=== PATIENT | female | born 1945 | race Caucasian/White ===

== ENCOUNTER 2017-07-30 18:32 | Emergency (ER) | payer MEDICARE, OTHER ==
[~2017-07-30] VITALS: Ht 180.3 cm; Wt 84.0 kg
[2017-07-30 19:24] LABS: BARBITURATES NEG (NEG); BENZODIAZEPINES NEG (NEG); CANNABINOIDS NEG (NEG); COCAINE NEG (NEG); METHADONE NEG (NEG); OPIATES NEG (NEG); PHENCYCLIDINE NEG (NEG)
[2017-07-30 19:25] LABS: AMPHETAMINE/METHAMPHETAMINE NEG (NEG)
[2017-07-30 19:50] LABS: BASO # 0.1 x10^3/uL (0.0-0.2); BASO % 1 % (0-3); EOS # 0.3 x10^3/uL (0.0-0.7); EOS % 3 % (0-3); HEMATOCRIT 34.4 % (36.0-47.0); HEMOGLOBIN 11.9 g/dL (12.0-15.5); LYMPH # 1.6 x10^3/uL (1.0-4.8); LYMPH % 17 % (24-48); MEAN CORPUSCULAR HEMOGLOBIN 34 pg (25-35); MEAN CORPUSCULAR HGB CONC 35 g/dL (31-37); MEAN CORPUSCULAR VOLUME 99 fL (79-100); MONO # 0.8 x10^3/uL (0.0-1.1); MONO % 9 % (0-9); NEUT # 6.6 x10^3uL (1.8-7.7); NEUT % 71 % (31-73); PLATELET COUNT 215 x10^3/uL (140-400); RED BLOOD COUNT 3.48 x10^6/uL (3.50-5.40); RED CELL DISTRIBUTION WIDTH 12.5 % (11.5-14.5); WHITE BLOOD COUNT 9.3 x10^3/uL (4.0-11.0)
[2017-07-30 19:58] LABS: ALBUMIN 3.1 g/dL (3.4-5.0); ALBUMIN/GLOBULIN RATIO 0.9 (1.0-1.7); CALCIUM 8.6 mg/dL (8.5-10.1); CREATININE 0.9 mg/dL (0.6-1.0); GFR 61.4; MAGNESIUM 1.9 mg/dL (1.8-2.4); POTASSIUM 3.8 mmol/L (3.5-5.1); TOTAL BILIRUBIN 0.7 mg/dL (0.2-1.0); TOTAL PROTEIN 6.4 g/dL (6.4-8.2)
[2017-07-30 20:05] LABS: BILIRUBIN,URINE NEG (NEG); CLARITY,URINE TURBID; COLOR,URINE YELLOW; GLUCOSE,URINE NEG (NEG); NITRITE,URINE NEG (NEG); UROBILINOGEN,URINE 0.2 mg/dL (0.2 mg/dL)
--- NOTE | 2017-07-30 20:05 | PHYS DOC ---
Past History Past Medical History: Bipolar, Diabetes, High Cholesterol, Hypertension Smoking: Cigarettes Adult General Chief Complaint Chief Complaint: PSYCH EVALUATION HPI HPI 71-year-old female patient with history of hypertension, dyslipidemia, diabetes and bipolar disorder brought in by her sisters for medical clearance for psychiatric admission. Patient lives at [place] and flew to this area yesterday. Patient states she didn't take her medication for the last one month because of problems mailing her medication. Patient complaining of chronic back pain without any new changes but her sister states she was very hyperactive and talking nonstop and last night she mentioned that she doesn't want to live like this she denies suicidal or homicidal ideation or hallucination at this time. Patient has history of drinking alcohol did not have any on-call today. Review of Systems Review of Systems Constitutional: Denies fever or chills [] Eyes: Denies change in visual acuity, redness, or eye pain [] HENT: Denies nasal congestion or sore throat [] Respiratory: Denies cough or shortness of breath [] Cardiovascular: No additional information not addressed in HPI [] GI: Denies abdominal pain, nausea, vomiting, bloody stools or diarrhea [] : Denies dysuria or hematuria [] Musculoskeletal: Denies joint pain, reports chronic back pain [] Integument: Denies rash or skin lesions [] Neurologic: Denies headache, focal weakness or sensory changes [] Endocrine: Denies polyuria or polydipsia [] All other systems were reviewed and found to be within normal limits, except as documented in this note. Allergies Allergies Allergies Coded Allergies Type Severity Reaction Last Updated Verified Penicillins Allergy Unknown 07/30/17 Yes procaine Allergy Unknown 07/30/17 Yes quetiapine Allergy Unknown 07/30/17 Yes Physical Exam Physical Exam Constitutional: Well nourished, no acute distress, non-toxic appearance, anxious , talking a lot. [] HENT: Normocephalic, atraumatic, bilateral external ears normal, oropharynx moist, no oral exudates, nose normal. [] Eyes: PERRLA, EOMI, conjunctiva normal, no discharge. [] Neck: Normal range of motion, no tenderness, supple, no stridor. [] Cardiovascular:Heart rate regular rhythm, no murmur [] Lungs & Thorax: Bilateral breath sounds clear to auscultation [] Abdomen: Bowel sounds normal, soft, no tenderness, no masses, no pulsatile masses. [] Skin: Warm, dry, no erythema, no rash. [] Back: No tenderness, no CVA tenderness. [] Extremities: No tenderness, no cyanosis, no clubbing, ROM intact, no edema. [] Neurologic: Alert and oriented X 3, normal motor function, normal sensory function, no focal deficits noted. [] Psychologic: Anxious, judgement normal, Current Patient Data Lab Results Laboratory Tests Test 07/30/17 18:55 07/30/17 19:15 Urine Opiates Screen Neg (NEG) Urine Methadone Screen Neg (NEG) Urine Barbiturates Neg (NEG) Urine Phencyclidine Screen Neg (NEG) Urine Amphetamine/Methamphetamine Neg (NEG) Urine Benzodiazepines Screen Neg (NEG) Urine Cocaine Screen Neg (NEG) Urine Cannabinoids Screen Neg (NEG) Urine Ethyl Alcohol Neg (NEG) White Blood Count 9.3 x10^3/uL (4.0-11.0) Red Blood Count 3.48 x10^6/uL (3.50-5.40) L Hemoglobin 11.9 g/dL (12.0-15.5) L Hematocrit 34.4 % (36.0-47.0) L Mean Corpuscular Volume 99 fL (79-100) Mean Corpuscular Hemoglobin 34 pg (25-35) Mean Corpuscular Hemoglobin Concent 35 g/dL (31-37) Red Cell Distribution Width 12.5 % (11.5-14.5) Platelet Count 215 x10^3/uL (140-400) Neutrophils (%) (Auto) 71 % (31-73) Lymphocytes (%) (Auto) 17 % (24-48) L Monocytes (%) (Auto) 9 % (0-9) Eosinophils (%) (Auto) 3 % (0-3) Basophils (%) (Auto) 1 % (0-3) Neutrophils # (Auto) 6.6 x10^3uL (1.8-7.7) Lymphocytes # (Auto) 1.6 x10^3/uL (1.0-4.8) Monocytes # (Auto) 0.8 x10^3/uL (0.0-1.1) Eosinophils # (Auto) 0.3 x10^3/uL (0.0-0.7) Basophils # (Auto) 0.1 x10^3/uL (0.0-0.2) Sodium Level 139 mmol/L (136-145) Potassium Level 3.8 mmol/L (3.5-5.1) Chloride Level 102 mmol/L (98-107) Carbon Dioxide Level 28 mmol/L (21-32) Anion Gap 9 (6-14) Blood Urea Nitrogen 9 mg/dL (7-20) Creatinine 0.9 mg/dL (0.6-1.0) Estimated GFR (Cockcroft-Gault) 61.4 BUN/Creatinine Ratio 10 (6-20) Glucose Level 186 mg/dL (70-99) H Glucose (Fingerstick) 179 mg/dL (70-99) H Calcium Level 8.6 mg/dL (8.5-10.1) Magnesium Level 1.9 mg/dL (1.8-2.4) Total Bilirubin 0.7 mg/dL (0.2-1.0) Aspartate Amino Transferase (AST) 56 U/L (15-37) H Alanine Aminotransferase (ALT) 51 U/L (14-59) Alkaline Phosphatase 111 U/L (46-116) Total Protein 6.4 g/dL (6.4-8.2) Albumin 3.1 g/dL (3.4-5.0) L Albumin/Globulin Ratio 0.9 (1.0-1.7) L EKG EKG EKG interpreted by me. EKG at 1922 showed normal sinus rhythm at rate of [address] and T wave abnormality, left truong axis deviation[] Radiology/Procedures Radiology/Procedures [] Course & Med Decision Making Course & Med Decision Making Pertinent Labs reviewed. (See chart for details) Evaluation of patient in ER showed 70-year-old female patient with history of bipolar without taking her medication brought in by family members because of manic symptom. Patient denied suicidal and homicidal ideation. Patient was evaluated by Dr. Costello psychiatric via telemedicine at and determined that she needs inpatient treatment. Blood tests showed blood sugar of 179 and mild UTI. Had 1 dose of active in ER. Patient was treated with Abilify 7.5 mg and Ativan 1 mg by mouth that was recommended by Dr. Costello. Plan to admit patient to [facility] with diagnosis of acute dottie. Dragon Disclaimer Dragon Disclaimer This electronic medical record was generated, in whole or in part, using a voice recognition dictation system. Departure Departure: Impression: Primary Impression: Medical clearance for psychiatric admission Additional Impressions: Urinary tract infection Uncontrolled diabetes mellitus Anemia Manic behavior Disposition: ADMITTED INPATIENT (to [facility] behavioral health unit at 2116 ) Condition: IMPROVED Referrals: PCP,NO (PCP) Problem Qualifiers BRANDON BOOKER MD Jul 30, 2017 20:05
[2017-07-30 20:06] LABS: BACTERIA,URINE FEW /HPF (0-FEW); SQUAMOUS EPITHELIAL CELL,UR MANY /LPF
[2017-07-30 20:08] LABS: YEAST,URINE PRESENT /HPF
[2017-07-30] MEDS ORDERED: SMZ/TMP 800/160MG TABLET. PO ONE (20:30)
[2017-07-30] MEDS ORDERED: LORazepam 1 MG TABLET PO ONE (21:30)
[2017-07-30] MEDS ORDERED: ARIPiprazole 15 MG TABLET PO ONE (21:30)
[2017-07-30 22:30] VITALS: BP 129/62
--- NOTE | 2017-07-31 06:13 | EKG ---
[address] [address] Test Date: 2017-07-30 Test Time: 19:22:56 Pat Name: SANJAY KIMBALL Department: Room: Gender: F Occ Therapist: : 1945 Requested By: BRANDON BOOKER Order Number: [id number] Reading MD: Chago Garcia Measurements Intervals [place] Rate: 80 P: 24 UT: 124 QRS: -10 QRSD: 90 T: 31 QT: 350 QTc: 407 Interpretive Statements SINUS RHYTHM LEFTWARD AXIS OTHERWISE NORMAL ECG RI6.01 No previous ECG available for comparison Electronically Signed On 08-04-2017 14:40:58 HARDWARE DESIGNER by Chago Garcia
== END 2017-07-30 22:35 | disposition left against medical advice (07) ==
LOC: ER 18:32
DX: Z01.818 Encounter for other preprocedural examination (principal); N39.0 Urinary tract infection, site not specified; E11.9 Type 2 diabetes mellitus without complications; D64.9 Anemia, unspecified; F31.9 Bipolar disorder, unspecified; G89.29 Other chronic pain; E78.00 Pure hypercholesterolemia, unspecified; I10 Essential (primary) hypertension; F17.210 Nicotine dependence, cigarettes, uncomplicated; Z88.0 Allergy status to penicillin; Z88.4 Allergy status to anesthetic agent; Z88.8 Allergy status to other drugs, medicaments and biological substances
CPT/HCPCS: 36415; 80053; 80307; 81001; 82947; 83735; 85025; 87086; 93005; 99285; G0479

== ENCOUNTER 2019-01-26 11:30 | Observation (INO) | payer MEDICAID, MEDICARE ==
[~2019-01-26] VITALS: Ht 165.1 cm; Wt 91.8 kg
[2019-01-26 12:07] LABS: BILIRUBIN,URINE NEG (NEG); CLARITY,URINE HAZY; COLOR,URINE YELLOW; GLUCOSE,URINE 100 mg/dL (NEG); NITRITE,URINE NEG (NEG); UROBILINOGEN,URINE 0.2 mg/dL (0.2 mg/dL)
[2019-01-26 12:15] LABS: BACTERIA,URINE FEW /HPF (0-FEW); HYALINE CASTS, URINE OCC /HPF; SQUAMOUS EPITHELIAL CELL,UR MOD /LPF; WBC,URINE 20-40 /HPF (0-4)
[2019-01-26 12:21] LABS: BASO % 0 % (0-3); EOS # 0.2 x10^3/uL (0.0-0.7); EOS % 2 % (0-3); HEMATOCRIT 34.8 % (36.0-47.0); HEMOGLOBIN 11.9 g/dL (12.0-15.5); LYMPH # 1.9 x10^3/uL (1.0-4.8); LYMPH % 19 % (24-48); MEAN CORPUSCULAR HEMOGLOBIN 35 pg (25-35); MEAN CORPUSCULAR HGB CONC 34 g/dL (31-37); MEAN CORPUSCULAR VOLUME 101 fL (79-100); MONO # 0.8 x10^3/uL (0.0-1.1); MONO % 8 % (0-9); NEUT % 70 % (31-73); PLATELET COUNT 210 x10^3/uL (140-400); RED BLOOD COUNT 3.45 x10^6/uL (3.50-5.40); RED CELL DISTRIBUTION WIDTH 12.6 % (11.5-14.5)
[2019-01-26 12:32] LABS: ALBUMIN 3.4 g/dL (3.4-5.0); CALCIUM 8.8 mg/dL (8.5-10.1); CREATININE 0.9 mg/dL (0.6-1.0); TOTAL PROTEIN 6.8 g/dL (6.4-8.2)
--- NOTE | 2019-01-26 13:17 | EKG ---
[address] [address] Test Date: 2019-01-26 Test Time: 13:00:59 Pat Name: SANJAY KIMBALL Department: Room: Gender: F Porter Sample Case: : 1945 Requested By: MILO CASTLE Order Number: [id number] Reading MD: Measurements Intervals [place] Rate: 79 P: 15 SC: 128 QRS: -8 QRSD: 90 T: 50 QT: 362 QTc: 416 Interpretive Statements SINUS RHYTHM LEFTWARD AXIS NO SPECIFIC ECG ABNORMALITIES RI6.01 No previous ECG available for comparison
--- NOTE | 2019-01-26 13:32 | PHYS DOC ---
Past History Past Medical History: Bipolar, Diabetes, High Cholesterol, Hypertension, Pneumonia Past Surgical History: Other Smoking: Cigarettes Alcohol Use: None Drug Use: None Adult General Chief Complaint Chief Complaint: PSYCH EVALUATION HPI HPI Patient is a 73 year old female who presents to the emergency department with complaint of audible hallucinations and insomnia. The patient has history of bipolar disorder. Patient notes that she has been off of her medications for the past 4 months. Has been having worsening insomnia and has been having conversations "with people who aren't there." The patient went to the [facility] for help, and patient was noted to need additional psychiatric screening and possible admission. She states they were referred here to [facility] as they felt patient may need to be admitted to the [facility] behavioral health unit. Patient denies any suicidal or homicidal ideation at this time. Denies any other somatic complaints. Review of Systems Review of Systems Constitutional: Denies fever or chills [] Eyes: Denies change in visual acuity, redness, or eye pain [] HENT: Denies nasal congestion or sore throat [] Respiratory: Denies cough or shortness of breath [] Cardiovascular: Denies chest pain or edema [] GI: Denies abdominal pain, nausea, vomiting, bloody stools or diarrhea [] : Denies dysuria or hematuria [] Musculoskeletal: Denies back pain or joint pain [] Integument: Denies rash or skin lesions [] Neurologic: Denies headache, focal weakness or sensory changes [] All other systems were reviewed and found to be within normal limits, except as documented in this note. Allergies Allergies Allergies Coded Allergies Type Severity Reaction Last Updated Verified Penicillins Allergy Unknown 07/30/17 Yes procaine Allergy Unknown 07/30/17 Yes quetiapine Allergy Unknown 07/30/17 Yes Physical Exam Physical Exam Constitutional: Alert, afebrile, no acute distress. [] HENT: Normocephalic, atraumatic, bilateral external ears normal, oropharynx moist, no oral exudates, nose normal. [] Eyes: PERRLA, EOMI, conjunctiva normal, no discharge. [] Neck: Normal range of motion, no tenderness, supple, no stridor. [] Cardiovascular:Heart rate regular rhythm, no murmur [] Lungs & Thorax: Bilateral breath sounds clear to auscultation [] Abdomen: Bowel sounds normal, soft, no tenderness, no masses, no pulsatile masses. [] Skin: Warm, dry, no erythema, no rash. [] Back: No tenderness, no CVA tenderness. [] Extremities: No tenderness, no cyanosis, no clubbing, ROM intact, no edema. [] Neurologic: Alert and oriented X 3, normal motor function, normal sensory function, no focal deficits noted. [] Psychologic: Affect labile, tangential speech, judgement normal, mood normal. [] Current Patient Data Vital Signs Vital Signs Date Time Temp Pulse Resp B/P (MAP) Pulse Ox O2 Delivery O2 Flow Rate FiO2 01/26/19 12:37 98.3 73 20 94 Room Air Lab Results Laboratory Tests Test 01/26/19 11:40 01/26/19 12:06 Urine Collection Type Void Urine Color Yellow Urine Clarity Hazy Urine pH 5.0 Urine Specific [place] 1.010 Urine Protein Neg (NEG-TRACE) Urine Glucose (UA) 100 mg/dL (NEG) Urine Ketones (Stick) Neg mg/dL (NEG) Urine Blood Mod (NEG) Urine Nitrite Neg (NEG) Urine Bilirubin Neg (NEG) Urine Urobilinogen Dipstick 0.2 mg/dL (0.2 mg/dL) Urine Leukocyte Esterase Mod (NEG) Urine RBC 6-10 /HPF (0-2) Urine WBC 20-40 /HPF (0-4) Urine Squamous Epithelial Cells Mod /LPF Urine Bacteria Few /HPF (0-FEW) Urine Hyaline Casts Occ /HPF Urine Mucus Slight /LPF White Blood Count 10.0 x10^3/uL (4.0-11.0) Red Blood Count 3.45 x10^6/uL (3.50-5.40) L Hemoglobin 11.9 g/dL (12.0-15.5) L Hematocrit 34.8 % (36.0-47.0) L Mean Corpuscular Volume 101 fL (79-100) H Mean Corpuscular Hemoglobin 35 pg (25-35) Mean Corpuscular Hemoglobin Concent 34 g/dL (31-37) Red Cell Distribution Width 12.6 % (11.5-14.5) Platelet Count 210 x10^3/uL (140-400) Neutrophils (%) (Auto) 70 % (31-73) Lymphocytes (%) (Auto) 19 % (24-48) L Monocytes (%) (Auto) 8 % (0-9) Eosinophils (%) (Auto) 2 % (0-3) Basophils (%) (Auto) 0 % (0-3) Neutrophils # (Auto) 7.0 x10^3uL (1.8-7.7) Lymphocytes # (Auto) 1.9 x10^3/uL (1.0-4.8) Monocytes # (Auto) 0.8 x10^3/uL (0.0-1.1) Eosinophils # (Auto) 0.2 x10^3/uL (0.0-0.7) Basophils # (Auto) 0.0 x10^3/uL (0.0-0.2) Sodium Level 138 mmol/L (136-145) Potassium Level 4.0 mmol/L (3.5-5.1) Chloride Level 101 mmol/L (98-107) Carbon Dioxide Level 25 mmol/L (21-32) Anion Gap 12 (6-14) Blood Urea Nitrogen 22 mg/dL (7-20) H Creatinine 0.9 mg/dL (0.6-1.0) Estimated GFR (Cockcroft-Gault) 61.0 BUN/Creatinine Ratio 24 (6-20) H Glucose Level 203 mg/dL (70-99) H Calcium Level 8.8 mg/dL (8.5-10.1) Total Bilirubin 1.0 mg/dL (0.2-1.0) Aspartate Amino Transferase (AST) 36 U/L (15-37) Alanine Aminotransferase (ALT) 57 U/L (14-59) Alkaline Phosphatase 141 U/L (46-116) H Total Protein 6.8 g/dL (6.4-8.2) Albumin 3.4 g/dL (3.4-5.0) Albumin/Globulin Ratio 1.0 (1.0-1.7) EKG EKG Interpreted by me: Heart rate 79, sinus rhythm, leftward axis, no acute ST/T- wave abnormalities present[] Radiology/Procedures Radiology/Procedures Laboratory Tests Test 01/26/19 11:40 01/26/19 12:06 Urine Collection Type Void Urine Color Yellow Urine Clarity Hazy Urine pH 5.0 Urine Specific [place] 1.010 Urine Protein Neg Urine Glucose (UA) 100 mg/dL Urine Ketones (Stick) Neg mg/dL Urine Blood Mod Urine Nitrite Neg Urine Bilirubin Neg Urine Urobilinogen Dipstick 0.2 mg/dL Urine Leukocyte Esterase Mod Urine RBC 6-10 /HPF Urine WBC 20-40 /HPF Urine Squamous Epithelial Cells Mod /LPF Urine Bacteria Few /HPF Urine Hyaline Casts Occ /HPF Urine Mucus Slight /LPF White Blood Count 10.0 x10^3/uL Red Blood Count 3.45 x10^6/uL Hemoglobin 11.9 g/dL Hematocrit 34.8 % Mean Corpuscular Volume 101 fL Mean Corpuscular Hemoglobin 35 pg Mean Corpuscular Hemoglobin Concent 34 g/dL Red Cell Distribution Width 12.6 % Platelet Count 210 x10^3/uL Neutrophils (%) (Auto) 70 % Lymphocytes (%) (Auto) 19 % Monocytes (%) (Auto) 8 % Eosinophils (%) (Auto) 2 % Basophils (%) (Auto) 0 % Neutrophils # (Auto) 7.0 x10^3uL Lymphocytes # (Auto) 1.9 x10^3/uL Monocytes # (Auto) 0.8 x10^3/uL Eosinophils # (Auto) 0.2 x10^3/uL Basophils # (Auto) 0.0 x10^3/uL Sodium Level 138 mmol/L Potassium Level 4.0 mmol/L Chloride Level 101 mmol/L Carbon Dioxide Level 25 mmol/L Anion Gap 12 Blood Urea Nitrogen 22 mg/dL Creatinine 0.9 mg/dL Estimated GFR (Cockcroft-Gault) 61.0 BUN/Creatinine Ratio 24 Glucose Level 203 mg/dL Calcium Level 8.8 mg/dL Total Bilirubin 1.0 mg/dL Aspartate Amino Transf (AST/SGOT) 36 U/L Alanine Aminotransferase (ALT/SGPT) 57 U/L Alkaline Phosphatase 141 U/L Total Protein 6.8 g/dL Albumin 3.4 g/dL Albumin/Globulin Ratio 1.0 [] Course & Med Decision Making Course & Med Decision Making Pertinent Labs and Imaging studies reviewed. (See chart for details) 1353: The patient's vital signs are stable and patient's lab work was reviewed. Urinalysis shows findings concerning for possible urinary tract infection. Patient started on Macrobid in the emergency department. Patient also noted to have mild hyperglycemia that is noncritical at this time. The patient has been cleared at this time for psychiatric evaluation. Patient will be screened by telemetry psychiatry for further recommendations regarding care of patient. 1518: The patient was evaluated by Dr. Albright, psychiatrist, through the telemonitor. He recommends that the patient be admitted to an inpatient psychiatric facility. The patient is voluntary at this time. Also recommended that the patient be restarted on Depakote 250 mg twice daily. After speaking with the patient, she has asked that we contact the inpatient psychiatric facility at [facility] in [place], [place]. 1810: Multiple facilities were contacted regarding admission of patient. Given the patient has evidence of urinary tract infection, the patient is not being accepted to any psychiatric facilities at this time. After speaking with the patient, I'm concerned about her current safety as she is not currently on medications. Urinary tract infection will also need to be treated. For this reason, the patient will be admitted as a medical patient. I spoke with Dr. Lazar who agreed to accept patient for admission.[] Dragon Disclaimer Dragon Disclaimer This electronic medical record was generated, in whole or in part, using a voice recognition dictation system. Departure Departure: Impression: Primary Impression: Urinary tract infection Additional Impressions: Auditory hallucination Bipolar disorder Type 2 diabetes mellitus Disposition: ADMITTED INPATIENT Admitting Physician: Roberto Lazar Condition: STABLE Referrals: DAINA ROBERTS (PCP) Problem Qualifiers Primary Impression: Urinary tract infection Urinary tract infection type: site unspecified Hematuria presence: without hematuria Qualified Codes: N39.0 - Urinary tract infection, site not specified Additional Impressions: Bipolar disorder Active/Remission status: remission status unspecified Qualified Codes: F31.9 - Bipolar disorder, unspecified Type 2 diabetes mellitus Diabetes mellitus nursing home insulin use: unspecified terminal makeup operator insulin use status Diabetes mellitus complication status: with hyperglycemia Qualified Codes: E11.65 - Type 2 diabetes mellitus with hyperglycemia MILO CASTLE MD Jan 26, 2019 13:32
[2019-01-26] MEDS ORDERED: NITROFURANTOIN MONOHYD/M-CRYST 100 MG CAPSULE. PO ONE (13:45)
[2019-01-26] MEDS ORDERED: ONDANSETRON PF 4 MG/2 ML VIAL. IV PRN (18:15)
[2019-01-26] MEDS ORDERED: ACETAMINOPHEN 325 MG TABLET PO PRN (18:15)
[2019-01-26] MEDS ORDERED: NICOTINE 21MG PATCH. TD PRN (18:15)
[2019-01-26 20:00] VITALS: BP 113/59
[2019-01-26] MEDS: DIVALPROEX SODIUM 250 MG TABLET.DR. PO SCH (20:45)
[2019-01-26] MEDS: IV NORMAL SALINE 1,000ML 1,000 ML IV SCH (20:45)
[2019-01-26 20:52] VITALS: BP 134/84
[2019-01-26] MEDS ORDERED: clonazePAM 1 MG TABLET PO SCH (21:00)
--- NOTE | 2019-01-26 22:34 | PDOC ---
Exam Note: Yanick Note: Please also refer to the separate dictated note~for this date of service dictated separately.~Patient seen individually. Discussed the patient with Nursing staff reviewed the chart.~Reviewed interim history and current functioning. Reviewed vital signs,~Labs/ Radiology~and current medications noted below. Continue current treatment with the changes noted in the dictated addendum note Assessment: Vital Signs/I&O: Vital Signs Date Time Temp Pulse Resp B/P (MAP) Pulse Ox O2 Delivery O2 Flow Rate FiO2 01/26/19 20:52 98.3 80 134/84 (101) 98 01/26/19 20:00 20 Room Air Labs: Laboratory Tests Test 01/26/19 11:40 01/26/19 12:06 Urine Collection Type Void Urine Color Yellow Urine Clarity Hazy Urine pH 5.0 Urine Specific [place] 1.010 Urine Protein Neg (NEG-TRACE) Urine Glucose (UA) 100 mg/dL (NEG) Urine Ketones (Stick) Neg mg/dL (NEG) Urine Blood Mod (NEG) Urine Nitrite Neg (NEG) Urine Bilirubin Neg (NEG) Urine Urobilinogen Dipstick 0.2 mg/dL (0.2 mg/dL) Urine Leukocyte Esterase Mod (NEG) Urine RBC 6-10 /HPF (0-2) Urine WBC 20-40 /HPF (0-4) Urine Squamous Epithelial Cells Mod /LPF Urine Bacteria Few /HPF (0-FEW) Urine Hyaline Casts Occ /HPF Urine Mucus Slight /LPF White Blood Count 10.0 x10^3/uL (4.0-11.0) Red Blood Count 3.45 x10^6/uL (3.50-5.40) L Hemoglobin 11.9 g/dL (12.0-15.5) L Hematocrit 34.8 % (36.0-47.0) L Mean Corpuscular Volume 101 fL (79-100) H Mean Corpuscular Hemoglobin 35 pg (25-35) Mean Corpuscular Hemoglobin Concent 34 g/dL (31-37) Red Cell Distribution Width 12.6 % (11.5-14.5) Platelet Count 210 x10^3/uL (140-400) Neutrophils (%) (Auto) 70 % (31-73) Lymphocytes (%) (Auto) 19 % (24-48) L Monocytes (%) (Auto) 8 % (0-9) Eosinophils (%) (Auto) 2 % (0-3) Basophils (%) (Auto) 0 % (0-3) Neutrophils # (Auto) 7.0 x10^3uL (1.8-7.7) Lymphocytes # (Auto) 1.9 x10^3/uL (1.0-4.8) Monocytes # (Auto) 0.8 x10^3/uL (0.0-1.1) Eosinophils # (Auto) 0.2 x10^3/uL (0.0-0.7) Basophils # (Auto) 0.0 x10^3/uL (0.0-0.2) Sodium Level 138 mmol/L (136-145) Potassium Level 4.0 mmol/L (3.5-5.1) Chloride Level 101 mmol/L (98-107) Carbon Dioxide Level 25 mmol/L (21-32) Anion Gap 12 (6-14) Blood Urea Nitrogen 22 mg/dL (7-20) H Creatinine 0.9 mg/dL (0.6-1.0) Estimated GFR (Cockcroft-Gault) 61.0 BUN/Creatinine Ratio 24 (6-20) H Glucose Level 203 mg/dL (70-99) H Calcium Level 8.8 mg/dL (8.5-10.1) Total Bilirubin 1.0 mg/dL (0.2-1.0) Aspartate Amino Transferase (AST) 36 U/L (15-37) Alanine Aminotransferase (ALT) 57 U/L (14-59) Alkaline Phosphatase 141 U/L (46-116) H Total Protein 6.8 g/dL (6.4-8.2) Albumin 3.4 g/dL (3.4-5.0) Albumin/Globulin Ratio 1.0 (1.0-1.7) Current Medications: Meds: Current Medications Medications (Trade) Dose Ordered Sig/Zena Route PRN Reason Start Time Stop Time Status Last Admin Dose Admin Nitrofurantoin Macrocrystals (Macrobid) 100 mg 1X ONCE PO 01/26/19 13:45 01/26/19 13:46 DC 01/26/19 14:10 Sodium Chloride 1,000 ml @ 125 mls/hr Q8H IV 01/26/19 18:13 8/7/19 18:12 01/26/19 20:45 Divalproex Sodium (Depakote) 250 mg BID PO 01/26/19 21:00 01/26/19 20:45 Clonazepam (KlonoPIN) 1 mg HS PO 01/26/19 21:00 01/26/19 20:45 I have reviewed the current psychotropics carefully including drug interactions. Risk benefit ratio favors no change other than as noted in my dictated progress note. Diagnosis: Problems: (1) Urinary tract infection (2) Auditory hallucination (3) Bipolar disorder (4) Type 2 diabetes mellitus TAMARA CENTENO MD Jan 26, 2019 22:34
[2019-01-26 23:07] VITALS: BP 128/58
[2019-01-27] MEDS ORDERED: SITA100T PO (00:45)
[2019-01-27] MEDS ORDERED: POTA10TA5 PO (00:45)
[2019-01-27] MEDS ORDERED: BUDE0.5A3 NEB (00:45)
[2019-01-27] MEDS ORDERED: LISI-338 PO (00:45)
[2019-01-27] MEDS ORDERED: DIVA250T PO (00:45)
[2019-01-27] MEDS ORDERED: ALPR0.5T PO (00:45)
[2019-01-27] MEDS ORDERED: FURO20TA3 PO (00:45)
[2019-01-27] MEDS ORDERED: ASPI-612 PO (00:45)
[2019-01-27] MEDS ORDERED: ARIP10TA9 PO (00:45)
[2019-01-27] MEDS ORDERED: NICO1PAT21 TP (00:45)
[2019-01-27] MEDS ORDERED: METF500T16 PO (00:45)
[2019-01-27] MEDS ORDERED: TRAZ-120 PO (00:45)
[2019-01-27] MEDS: IV NORMAL SALINE 1,000ML 1,000 ML IV SCH ×2 (04:58→10:13)
[2019-01-27 05:43] VITALS: BP 105/60
[2019-01-27 05:59] LABS: BASO # 0.1 x10^3/uL (0.0-0.2); BASO % 1 % (0-3); EOS # 0.2 x10^3/uL (0.0-0.7); EOS % 3 % (0-3); HEMATOCRIT 33.6 % (36.0-47.0); HEMOGLOBIN 11.2 g/dL (12.0-15.5); LYMPH # 1.8 x10^3/uL (1.0-4.8); LYMPH % 23 % (24-48); MEAN CORPUSCULAR HEMOGLOBIN 34 pg (25-35); MEAN CORPUSCULAR HGB CONC 33 g/dL (31-37); MEAN CORPUSCULAR VOLUME 103 fL (79-100); MONO # 0.7 x10^3/uL (0.0-1.1); MONO % 10 % (0-9); NEUT # 4.9 x10^3uL (1.8-7.7); NEUT % 63 % (31-73); PLATELET COUNT 178 x10^3/uL (140-400); RED BLOOD COUNT 3.27 x10^6/uL (3.50-5.40); RED CELL DISTRIBUTION WIDTH 12.8 % (11.5-14.5); WHITE BLOOD COUNT 7.8 x10^3/uL (4.0-11.0)
[2019-01-27 06:11] LABS: CALCIUM 8.3 mg/dL (8.5-10.1); CREATININE 0.8 mg/dL (0.6-1.0); GFR 69.9; POTASSIUM 4.2 mmol/L (3.5-5.1)
[2019-01-27] MEDS: DIVALPROEX SODIUM 250 MG TABLET.DR. PO SCH (08:45)
[2019-01-27] MEDS ORDERED: NITROFURANTOIN MONOHYD/M-CRYST 100 MG CAPSULE. PO SCH (09:00)
[2019-01-27 11:53] VITALS: BP 127/89
[2019-01-27 15:57] VITALS: BP 119/59
--- NOTE | 2019-01-27 18:25 | PDOC ---
Exam Note: Yanick Note: Please also refer to the separate dictated note~for this date of service dictated separately.~Patient seen individually. Discussed the patient with Nursing staff reviewed the chart.~Reviewed interim history and current functioning. Reviewed vital signs,~Labs/ Radiology~and current medications noted below. Continue current treatment with the changes noted in the dictated addendum note. Please disregard my template note of 01/26/19 as this was entered inadvertently. Assessment: Vital Signs/I&O: Vital Signs Date Time Temp Pulse Resp B/P (MAP) Pulse Ox O2 Delivery O2 Flow Rate FiO2 01/27/19 15:57 97.1 69 20 119/59 (79) 94 Room Air I & O 01/26/19 01/26/19 01/27/19 15:00 23:00 07:00 Intake Total 120 ml 1300 ml Balance 120 ml 1300 ml Labs: Laboratory Tests Test 01/26/19 20:15 01/27/19 05:37 Nasal Screen MRSA (PCR) Negative (Negative) White Blood Count 7.8 x10^3/uL (4.0-11.0) Red Blood Count 3.27 x10^6/uL (3.50-5.40) L Hemoglobin 11.2 g/dL (12.0-15.5) L Hematocrit 33.6 % (36.0-47.0) L Mean Corpuscular Volume 103 fL (79-100) H Mean Corpuscular Hemoglobin 34 pg (25-35) Mean Corpuscular Hemoglobin Concent 33 g/dL (31-37) Red Cell Distribution Width 12.8 % (11.5-14.5) Platelet Count 178 x10^3/uL (140-400) Neutrophils (%) (Auto) 63 % (31-73) Lymphocytes (%) (Auto) 23 % (24-48) L Monocytes (%) (Auto) 10 % (0-9) H Eosinophils (%) (Auto) 3 % (0-3) Basophils (%) (Auto) 1 % (0-3) Neutrophils # (Auto) 4.9 x10^3uL (1.8-7.7) Lymphocytes # (Auto) 1.8 x10^3/uL (1.0-4.8) Monocytes # (Auto) 0.7 x10^3/uL (0.0-1.1) Eosinophils # (Auto) 0.2 x10^3/uL (0.0-0.7) Basophils # (Auto) 0.1 x10^3/uL (0.0-0.2) Sodium Level 142 mmol/L (136-145) Potassium Level 4.2 mmol/L (3.5-5.1) Chloride Level 106 mmol/L (98-107) Carbon Dioxide Level 28 mmol/L (21-32) Anion Gap 8 (6-14) Blood Urea Nitrogen 14 mg/dL (7-20) Creatinine 0.8 mg/dL (0.6-1.0) Estimated GFR (Cockcroft-Gault) 69.9 Glucose Level 163 mg/dL (70-99) H Calcium Level 8.3 mg/dL (8.5-10.1) L Current Medications: Meds: Current Medications Medications (Trade) Dose Ordered Sig/Zena Route PRN Reason Start Time Stop Time Status Last Admin Dose Admin Divalproex Sodium (Depakote) 250 mg BID PO 01/26/19 21:00 01/27/19 08:45 Nitrofurantoin Macrocrystals (Macrobid) 100 mg BID PO 01/27/19 09:00 01/27/19 08:45 Clonazepam (KlonoPIN) 1 mg HS PO 01/26/19 21:00 01/26/19 20:45 I have reviewed the current psychotropics carefully including drug interactions. Risk benefit ratio favors no change other than as noted in my dictated progress note. Diagnosis: Problems: (1) Bipolar 1 disorder (2) Type 2 diabetes mellitus TAMARA CENTENO MD Jan 27, 2019 18:25
--- NOTE | 2019-01-27 18:39 | PDOC ---
Exam Note: Yanick Note: Please also refer to the separate dictated note~for this date of service dictated separately.~Patient seen individually. Discussed the patient with Nursing staff reviewed the chart.~Reviewed interim history and current functioning. Reviewed vital signs,~Labs/ Radiology~and current medications noted below. Continue current treatment with the changes noted in the dictated addendum note. I reviewed pt info/records a few minutes back and completed the template note but by the time I came to ICU to see pt she had already been discharged. I never saw the pt all during this hospitalization. Assessment: Vital Signs/I&O: Vital Signs Date Time Temp Pulse Resp B/P (MAP) Pulse Ox O2 Delivery O2 Flow Rate FiO2 01/27/19 15:57 97.1 69 20 119/59 (79) 94 Room Air I & O 01/26/19 01/26/19 01/27/19 14:59 22:59 06:59 Intake Total 120 ml 1300 ml Balance 120 ml 1300 ml Labs: Laboratory Tests Test 01/26/19 20:15 01/27/19 05:37 Nasal Screen MRSA (PCR) Negative (Negative) White Blood Count 7.8 x10^3/uL (4.0-11.0) Red Blood Count 3.27 x10^6/uL (3.50-5.40) L Hemoglobin 11.2 g/dL (12.0-15.5) L Hematocrit 33.6 % (36.0-47.0) L Mean Corpuscular Volume 103 fL (79-100) H Mean Corpuscular Hemoglobin 34 pg (25-35) Mean Corpuscular Hemoglobin Concent 33 g/dL (31-37) Red Cell Distribution Width 12.8 % (11.5-14.5) Platelet Count 178 x10^3/uL (140-400) Neutrophils (%) (Auto) 63 % (31-73) Lymphocytes (%) (Auto) 23 % (24-48) L Monocytes (%) (Auto) 10 % (0-9) H Eosinophils (%) (Auto) 3 % (0-3) Basophils (%) (Auto) 1 % (0-3) Neutrophils # (Auto) 4.9 x10^3uL (1.8-7.7) Lymphocytes # (Auto) 1.8 x10^3/uL (1.0-4.8) Monocytes # (Auto) 0.7 x10^3/uL (0.0-1.1) Eosinophils # (Auto) 0.2 x10^3/uL (0.0-0.7) Basophils # (Auto) 0.1 x10^3/uL (0.0-0.2) Sodium Level 142 mmol/L (136-145) Potassium Level 4.2 mmol/L (3.5-5.1) Chloride Level 106 mmol/L (98-107) Carbon Dioxide Level 28 mmol/L (21-32) Anion Gap 8 (6-14) Blood Urea Nitrogen 14 mg/dL (7-20) Creatinine 0.8 mg/dL (0.6-1.0) Estimated GFR (Cockcroft-Gault) 69.9 Glucose Level 163 mg/dL (70-99) H Calcium Level 8.3 mg/dL (8.5-10.1) L Current Medications: Meds: Current Medications Medications (Trade) Dose Ordered Sig/Zena Route PRN Reason Start Time Stop Time Status Last Admin Dose Admin Divalproex Sodium (Depakote) 250 mg BID PO 01/26/19 21:00 01/27/19 18:24 DC 01/27/19 08:45 Nitrofurantoin Macrocrystals (Macrobid) 100 mg BID PO 01/27/19 09:00 01/27/19 18:24 DC 01/27/19 08:45 Clonazepam (KlonoPIN) 1 mg HS PO 01/26/19 21:00 01/27/19 18:24 DC 01/26/19 20:45 I have reviewed the current psychotropics carefully including drug interactions. Risk benefit ratio favors no change other than as noted in my dictated progress note. TAMARA CENTENO MD Jan 27, 2019 18:39
--- NOTE | 2019-01-27 20:05 | SSS ---
ADMIT DATE: HISTORY OF PRESENT ILLNESS: The patient is a 73-year-old female patient who came into the Emergency Department with a complaint of audible hallucination and insomnia. The patient has a history of bipolar disorder. She notes that she has been off her medication for the last 4 months, has been having worsening insomnia, has been having conversation ____. She went to the [email or web address] for help and the patient was noted to need additional psychiatric screening and possible admission and therefore they referred her to [facility] as they felt the patient may need to be admitted to [facility]. She denied any suicidal or homicidal ideation at this time. Denied any other somatic complaint. She was evaluated in the Emergency Room and was admitted to medical floor to treat her urinary tract infection and also to consult the psychiatrist. PAST MEDICAL HISTORY: Significant for hypertension, type 2 diabetes mellitus as well as chronic obstructive pulmonary disease, also known to have hypercholesterolemia and bipolar disorder. PAST SURGICAL HISTORY: Unremarkable. FAMILY HISTORY: Noncontributory. SOCIAL HISTORY: Her daughter lives with her. She continued to smoke and has been smoking since the age of 14. She does not drink alcohol or use any recreational drugs. PHYSICAL EXAMINATION: GENERAL: On arrival to the Emergency Room, she looked well and was clearly in no apparent respiratory distress. No pallor, jaundice, cyanosis, or thyromegaly. No jugular venous distension. No limb edema. VITAL SIGNS: Her heart rate was 73, blood pressure was 134/84, temperature was 98.3, respiratory rate 20, and oxygen saturation was 98%. HEENT: Normocephalic, atraumatic. NECK: Supple. HEART: Showed normal first and second heart sounds. No gallop, rub or murmur. CHEST: Clear to auscultation. No crepitation or rhonchi. ABDOMEN: Distended, soft, nontender. No guarding or rigidity. No organomegaly. All hernial orifices intact. Bowel sounds normal. NEUROLOGIC: She is awake, alert, responding appropriately. All her cranial nerves intact. EXTREMITIES: She moves extremities without difficulty. She ambulates without assistance or assistive devices. LABORATORY DATA: Her lab work on admission showed a white cell count of 10,000, hemoglobin 11.9, hematocrit 35, MCV 101 and platelet count of 110,000. Her serum sodium was 138, potassium 4, chloride 101, bicarbonate 25, anion gap of 12, BUN 22, creatinine 0.9, estimated GFR was 61 mL per minute. Her glucose was 103, calcium was 8.8. Total bilirubin, AST, ALT were normal. Alkaline phosphatase was elevated. Total protein was 6.8, albumin was 3.4. Her urinalysis showed the urine was yellow, hazy with a pH of 5, specific gravity 1.010. The urine was negative for protein. There was large amount of glucose, negative for ketones, moderate amount of blood, negative for nitrite and moderate amount of leukocyte esterase with 6-10 rbc's, 20-40 wbc's, and few bacteria. The patient was evaluated by Dr. Arce and he recommended that she continues on her ____. In fact, the patient has done very well, has slept overnight. FINAL DISCHARGE DIAGNOSES: Urinary tract infection with auditory hallucination, bipolar disorder, type 2 diabetes mellitus, chronic obstructive pulmonary disease as well as hypertension. NAM MATTHEW MD DR: ROSEMARY/matheus JOB#: [id number] / [id number]
== END 2019-01-27 18:24 | disposition home or self-care (01) ==
LOC: ER 11:30 → ICU 18:02 → INTOOBSV 18:02
PROVIDERS: ADMIT Internal Medicine; ATTEND Internal Medicine
DX: N39.0 Urinary tract infection, site not specified (principal); R44.0 Auditory hallucinations; F31.9 Bipolar disorder, unspecified; E11.9 Type 2 diabetes mellitus without complications; G47.00 Insomnia, unspecified; E78.00 Pure hypercholesterolemia, unspecified; I10 Essential (primary) hypertension; J44.9 Chronic obstructive pulmonary disease, unspecified; F17.200 Nicotine dependence, unspecified, uncomplicated
CPT/HCPCS: 36415; 80048; 80053; 81001; 85025; 87086; 87641; 93005; 99284; G0378; G0379; J7030

== ENCOUNTER 2019-01-31 20:36 | Emergency (ER) | payer MEDICARE ==
[~2019-01-31] VITALS: Ht 165.1 cm; Wt 84.0 kg
[~2019-01-31 20:36] MED LIST: ALPR0.5T PO; ARIP10TA9 PO; ASPI-612 PO; BUDE0.5A3 NEB; DIVA250T PO; FURO20TA3 PO; LISI-338 PO; METF500T16 PO; NICO1PAT21 TP; POTA10TA5 PO; SITA100T PO; TRAZ-120 PO
--- NOTE | 2019-01-31 21:17 | ED.ADGEN ---
Past History Past Medical History: Anxiety, Bipolar, Diabetes, High Cholesterol, Hypertension, Pneumonia Past Surgical History: Cholecystectomy, Other Smoking: Cigarettes Alcohol Use: None Drug Use: None Adult General Chief Complaint Chief Complaint " I was feeling anxious...".. I ve been off my meds... " HPI HPI Patient is a 73 year old female who presents with above hx and complaints of anxiety. Patient has not taken any of her psych meds today. Has an appointment tomorrow morning with counseling center . Family is at her bedside. Requesting meds at least for tonight until they can get follow-up in the morning. Patient seen here previously for exacerbation of her bipolar disorder and schizoaffective problems. Patient and family request no labs. Just assistance in getting meds to control her agitation tonight. Patient currently very agitated. Denies any suicidal or homicidal ideation. Patient has a history of hypertension. Patient has history of elevated glucose and diabetes. Pt. seen here Jan. exacerbation of her schizoaffective disorder. Review of Systems Review of Systems Only complaint agitation Constitutional: Denies fever or chills [] Eyes: Denies change in visual acuity, redness, or eye pain [] HENT: Denies nasal congestion or sore throat [] Respiratory: Denies cough or shortness of breath [] Cardiovascular: No additional information not addressed in HPI [] GI: Denies abdominal pain, nausea, vomiting, bloody stools or diarrhea [] : Denies dysuria or hematuria [] Musculoskeletal: Denies back pain or joint pain [] Integument: Denies rash or skin lesions [] Neurologic: Denies headache, focal weakness or sensory changes [] Endocrine: Denies polyuria or polydipsia [] All other systems were reviewed and found to be within normal limits, except as documented in this note. Family History Family History Noncontributory Current Medications Current Medications Current Medications Medications (Trade) Dose Ordered Sig/Zena Start Time Stop Time Status Last Admin Dose Admin Aripiprazole (Abilify) 10 mg STK-MED ONCE 01/31/19 22:17 01/31/19 22:18 DC Clonidine HCl (Catapres Tts-2) 1 patch 1X ONCE 01/31/19 21:45 01/31/19 21:52 DC 01/31/19 22:44 1 PATCH Cyclobenzaprine HCl (Flexeril) 5 mg 1X ONCE 01/31/19 21:45 01/31/19 21:52 DC 01/31/19 22:44 5 MG Divalproex Sodium (Depakote Er) 500 mg 1X ONCE 01/31/19 21:45 01/31/19 21:52 DC 01/31/19 22:44 500 MG Lorazepam (Ativan) 1 mg 1X ONCE 01/31/19 21:45 01/31/19 21:52 DC 01/31/19 22:44 1 MG Trazodone HCl (Desyrel) 50 mg 1X ONCE 01/31/19 21:45 01/31/19 21:52 DC 01/31/19 22:44 50 MG Allergies Allergies Allergies Coded Allergies Type Severity Reaction Last Updated Verified morphine Allergy Mild Unknown 01/26/19 Yes Penicillins Allergy Unknown 07/30/17 Yes procaine Allergy Unknown 07/30/17 Yes quetiapine Allergy Unknown 07/30/17 Yes Physical Exam Physical Exam Constitutional: In acute motion normal distress, non-toxic appearance. [] HENT: Normocephalic, atraumatic, bilateral external ears normal, oropharynx moist, no oral exudates, nose normal. [] Eyes: PERRLA, EOMI, conjunctiva normal, no discharge. [] Neck: Normal range of motion, no tenderness, supple, no stridor. [] Cardiovascular: Tachycardia Heart rate regular rhythm, no murmur []PMI to the left Lungs & Thorax: Bilateral breath sounds equal apex auscultation [] Abdomen: Bowel sounds normal, soft, no tenderness, no masses, no pulsatile masses. []Old surgery scar. Obese. Skin: Warm, dry, no erythema, no rash. [] Back: No tenderness, no CVA tenderness. [] Extremities: No tenderness, no cyanosis, no clubbing, ROM intact, no edema. [] No cording. Arthritic changes Neurologic: Alert and oriented X 3, but very agitated. Has obvious difficulty focusing . Moves all extremities on request. Has distal sensory. Intentional tremor. DTRs +2 patella and brachial. Psychologic: Affect agitated anxious,, judgement obviously impaired, mood depressed. Denies suicidal ideation or homicidal ideation. Pressured speech. Difficult to maintain concentration. Easily distracted. Hypervigilant Current Patient Data Vital Signs Vital Signs Date Time Temp Pulse Resp B/P (MAP) Pulse Ox O2 Delivery O2 Flow Rate FiO2 01/31/19 22:55 71 18 106/65 (79) 96 Room Air 01/31/19 20:36 98.7 EKG EKG [] Radiology/Procedures Radiology/Procedures [] Course & Med Decision Making Course & Med Decision Making Pertinent Labs and Imaging studies reviewed. (See chart for details). Family are to help her keep follow-up at counseling center in morning. Patient return if any concerns. [] Final Impression Final Impression 1. Financial Non-compliance with Anxiety, Bipolar and Schizoaffective disorder meds[] 2. Acute anxiety attack 3. Bipolar-appears to be currently manic 4. Schizoaffective disorder Dragon Disclaimer Dragon Disclaimer This electronic medical record was generated, in whole or in part, using a voice recognition dictation system. Dragon Disclaimer This chart was dictated in whole or in part using Voice Recognition software in a busy, high-work load, and often noisy Emergency Department environment. It may contain unintended and wholly unrecognized errors or omissions. JAKI HINSON MD Jan 31, 2019 21:17
[2019-01-31] MEDS ORDERED: cloNIDine TTS-2 1 PATCH PATCH TD ONE (21:45)
[2019-01-31] MEDS ORDERED: LORazepam 1 MG TABLET PO ONE (21:45)
[2019-01-31] MEDS ORDERED: traZODone 50 MG TABLET. PO ONE (21:45)
[2019-01-31] MEDS ORDERED: CYCLOBENZAPRINE 10 MG TABLET. PO ONE (21:45)
[2019-01-31] MEDS ORDERED: DIVALPROEX ER 500 MG TAB.ER.24H PO ONE (21:45)
[2019-01-31] MEDS ORDERED: ARIPiprazole 10 MG TABLET ONE (22:17)
[2019-01-31 22:55] VITALS: BP 106/65
[2019-02-01] MEDS ORDERED: ARIPiprazole 10 MG TABLET PO SCH (09:00)
== END 2019-01-31 22:55 | disposition home or self-care (01) ==
LOC: ER 20:36
DX: F41.9 Anxiety disorder, unspecified (principal); F30.9 Manic episode, unspecified; F20.9 Schizophrenia, unspecified; E11.9 Type 2 diabetes mellitus without complications; E78.00 Pure hypercholesterolemia, unspecified; I10 Essential (primary) hypertension; F17.210 Nicotine dependence, cigarettes, uncomplicated; Z91.19 Patient's noncompliance with other medical treatment and regimen; Z88.5 Allergy status to narcotic agent; Z88.0 Allergy status to penicillin; Z88.4 Allergy status to anesthetic agent; Z88.8 Allergy status to other drugs, medicaments and biological substances
CPT/HCPCS: 99284

== ENCOUNTER 2019-02-02 21:35 | Emergency (ER) | payer MEDICARE ==
[~2019-02-02] VITALS: Ht 165.1 cm; Wt 84.0 kg
[2019-02-02] MEDS ORDERED: IV NORMAL SALINE 500ML 500 ML IV ONE (22:00)
[2019-02-02] MEDS ORDERED: diphenhydrAMINE 50 MG/ML VIAL IVP ONE (22:15)
[2019-02-02 22:26] LABS: BASO # 0.1 x10^3/uL (0.0-0.2); BASO % 1 % (0-3); EOS # 0.2 x10^3/uL (0.0-0.7); EOS % 2 % (0-3); HEMATOCRIT 33.7 % (36.0-47.0); HEMOGLOBIN 11.6 g/dL (12.0-15.5); LYMPH # 2.3 x10^3/uL (1.0-4.8); LYMPH % 25 % (24-48); MEAN CORPUSCULAR HEMOGLOBIN 35 pg (25-35); MEAN CORPUSCULAR HGB CONC 34 g/dL (31-37); MEAN CORPUSCULAR VOLUME 101 fL (79-100); MONO # 0.9 x10^3/uL (0.0-1.1); MONO % 10 % (0-9); NEUT # 5.7 x10^3uL (1.8-7.7); NEUT % 62 % (31-73); PLATELET COUNT 222 x10^3/uL (140-400); RED BLOOD COUNT 3.34 x10^6/uL (3.50-5.40); RED CELL DISTRIBUTION WIDTH 12.7 % (11.5-14.5); WHITE BLOOD COUNT 9.3 x10^3/uL (4.0-11.0)
[2019-02-02 22:35] LABS: BACTERIA,URINE FEW /HPF (0-FEW); BILIRUBIN,URINE NEG (NEG); CLARITY,URINE CLEAR; COLOR,URINE YELLOW; GLUCOSE,URINE NEG (NEG); NITRITE,URINE NEG (NEG); RBC,URINE 0 /HPF (0-2); SQUAMOUS EPITHELIAL CELL,UR OCC /LPF; UROBILINOGEN,URINE 0.2 mg/dL (0.2 mg/dL); WBC,URINE OCC /HPF (0-4)
[2019-02-02 22:42] LABS: ALBUMIN 3.4 g/dL (3.4-5.0); CALCIUM 8.7 mg/dL (8.5-10.1); DIRECT BILIRUBIN 0.2 mg/dL (0.0-0.2); GFR 54.1; MAGNESIUM 1.9 mg/dL (1.8-2.4); TOTAL BILIRUBIN 0.7 mg/dL (0.2-1.0); TOTAL PROTEIN 6.2 g/dL (6.4-8.2)
[2019-02-03 00:10] VITALS: BP 147/72
--- NOTE | 2019-02-03 00:22 | PHYS DOC ---
Past History Past Medical History: Anxiety, Bipolar, Diabetes, High Cholesterol, Hypertension, Pneumonia Past Surgical History: Cholecystectomy, Other Smoking: Cigarettes Alcohol Use: None Drug Use: None Adult General Chief Complaint Chief Complaint: MUSCLE SPASM/CRAMP HPI HPI Patient is a 73-year-old female who arrives with complaint that she thinks that she is reacting to one of her new medications. She states that she had taken her first dose of Haldol today and afterward she started having some spasms in her legs and also had some spasms in her facial muscles earlier today. She denies any chest pain or shortness of breath. She does admit to feeling anxious at this time.[] Review of Systems Review of Systems Constitutional: Denies fever or chills [] Respiratory: Denies cough or shortness of breath [] Cardiovascular: No additional information not addressed in HPI [] GI: Denies abdominal pain, nausea, vomiting or diarrhea [] Musculoskeletal: Denies back pain or joint pain [] Integument: Denies rash or skin lesions [] Neurologic: Denies headache, focal weakness or sensory changes [] All other systems were reviewed and found to be within normal limits, except as documented in this note. Current Medications Current Medications Current Medications Medications (Trade) Dose Ordered Sig/Zena Start Time Stop Time Status Last Admin Dose Admin Diphenhydramine HCl (Benadryl) 25 mg 1X ONCE 02/02/19 22:15 02/02/19 22:16 DC 02/02/19 22:19 25 MG Lorazepam (Ativan Inj) 1 mg 1X ONCE 02/02/19 23:30 02/02/19 23:31 DC 02/02/19 23:30 1 MG Sodium Chloride 500 ml @ 0 mls/hr 1X ONCE 02/02/19 22:00 02/02/19 22:11 DC 02/02/19 22:19 500 MLS/HR Allergies Allergies Allergies Coded Allergies Type Severity Reaction Last Updated Verified morphine Allergy Mild Unknown 01/26/19 Yes Penicillins Allergy Unknown 07/30/17 Yes procaine Allergy Unknown 07/30/17 Yes quetiapine Allergy Unknown 07/30/17 Yes Physical Exam Physical Exam Constitutional: Well developed, well nourished, appears anxious, non-toxic appearance. [] HENT: Normocephalic, atraumatic, bilateral external ears normal, oropharynx moist, no oral exudates, nose normal. [] Eyes: PERRLA, EOMI, conjunctiva normal, no discharge. [] Neck: Normal range of motion, no tenderness, supple, no stridor. [] Cardiovascular:Heart rate regular rhythm, no murmur [] Lungs & Thorax: Bilateral breath sounds clear to auscultation [] Abdomen: Bowel sounds normal, soft, no tenderness, no masses, no pulsatile masses. [] Skin: Warm, dry, no erythema, no rash. [] Extremities: No tenderness, no cyanosis, no clubbing, ROM intact. [] Neurologic: Alert and oriented X 3, no focal deficits noted. [] Current Patient Data Vital Signs Vital Signs Date Time Temp Pulse Resp B/P (MAP) Pulse Ox O2 Delivery O2 Flow Rate FiO2 02/02/19 21:35 98.4 64 14 97 Room Air Lab Results Laboratory Tests Test 02/02/19 22:00 02/02/19 22:10 White Blood Count 9.3 x10^3/uL (4.0-11.0) Red Blood Count 3.34 x10^6/uL (3.50-5.40) L Hemoglobin 11.6 g/dL (12.0-15.5) L Hematocrit 33.7 % (36.0-47.0) L Mean Corpuscular Volume 101 fL (79-100) H Mean Corpuscular Hemoglobin 35 pg (25-35) Mean Corpuscular Hemoglobin Concent 34 g/dL (31-37) Red Cell Distribution Width 12.7 % (11.5-14.5) Platelet Count 222 x10^3/uL (140-400) Neutrophils (%) (Auto) 62 % (31-73) Lymphocytes (%) (Auto) 25 % (24-48) Monocytes (%) (Auto) 10 % (0-9) H Eosinophils (%) (Auto) 2 % (0-3) Basophils (%) (Auto) 1 % (0-3) Neutrophils # (Auto) 5.7 x10^3uL (1.8-7.7) Lymphocytes # (Auto) 2.3 x10^3/uL (1.0-4.8) Monocytes # (Auto) 0.9 x10^3/uL (0.0-1.1) Eosinophils # (Auto) 0.2 x10^3/uL (0.0-0.7) Basophils # (Auto) 0.1 x10^3/uL (0.0-0.2) Sodium Level 138 mmol/L (136-145) Potassium Level 4.0 mmol/L (3.5-5.1) Chloride Level 103 mmol/L (98-107) Carbon Dioxide Level 27 mmol/L (21-32) Anion Gap 8 (6-14) Blood Urea Nitrogen 20 mg/dL (7-20) Creatinine 1.0 mg/dL (0.6-1.0) Estimated GFR (Cockcroft-Gault) 54.1 Glucose Level 144 mg/dL (70-99) H Calcium Level 8.7 mg/dL (8.5-10.1) Magnesium Level 1.9 mg/dL (1.8-2.4) Total Bilirubin 0.7 mg/dL (0.2-1.0) Direct Bilirubin 0.2 mg/dL (0.0-0.2) Aspartate Amino Transferase (AST) 40 U/L (15-37) H Alanine Aminotransferase (ALT) 56 U/L (14-59) Alkaline Phosphatase 129 U/L (46-116) H Total Protein 6.2 g/dL (6.4-8.2) L Albumin 3.4 g/dL (3.4-5.0) Urine Collection Type Unknown Urine Color Yellow Urine Clarity Clear Urine pH 5.0 Urine Specific [place] 1.010 Urine Protein Neg (NEG-TRACE) Urine Glucose (UA) Neg mg/dL (NEG) Urine Ketones (Stick) Neg mg/dL (NEG) Urine Blood Neg (NEG) Urine Nitrite Neg (NEG) Urine Bilirubin Neg (NEG) Urine Urobilinogen Dipstick 0.2 mg/dL (0.2 mg/dL) Urine Leukocyte Esterase Neg (NEG) Urine RBC 0 /HPF (0-2) Urine WBC Occ /HPF (0-4) Urine Squamous Epithelial Cells Occ /LPF Urine Bacteria Few /HPF (0-FEW) Urine Mucus Slight /LPF EKG EKG [] Radiology/Procedures Radiology/Procedures [] Course & Med Decision Making Course & Med Decision Making Pertinent Labs and Imaging studies reviewed. (See chart for details) [] Dragon Disclaimer Dragon Disclaimer This electronic medical record was generated, in whole or in part, using a voice recognition dictation system. Departure Departure: Impression: Primary Impression: Medication reaction Disposition: HOME, SELF-CARE Condition: STABLE Referrals: DAIAN ROBERTS (PCP) Patient Instructions: Dystonic Reaction Problem Qualifiers Primary Impression: Medication reaction Encounter type: initial encounter Qualified Codes: T50.905A - Adverse effect of unspecified drugs, medicaments and biological substances, initial encounter ANA HADDAD Jr. DO Feb 03, 2019 00:22
== END 2019-02-03 00:27 | disposition home or self-care (01) ==
LOC: ER 21:35
DX: M62.838 Other muscle spasm (principal); M62.831 Muscle spasm of calf; T50.995A Adverse effect of other drugs, medicaments and biological substances, initial encounter; E11.9 Type 2 diabetes mellitus without complications; E78.00 Pure hypercholesterolemia, unspecified; I10 Essential (primary) hypertension; F17.210 Nicotine dependence, cigarettes, uncomplicated; Z88.5 Allergy status to narcotic agent; Z88.0 Allergy status to penicillin; Z88.4 Allergy status to anesthetic agent; Z88.8 Allergy status to other drugs, medicaments and biological substances; Y92.89 Other specified places as the place of occurrence of the external cause
CPT/HCPCS: 36415; 80048; 80076; 81001; 83735; 85025; 96374; 96375; 99284; J1200; J2060; J7040

== ENCOUNTER 2019-02-03 20:02 | Observation (INO) | payer MEDICARE ==
[~2019-02-03] VITALS: Ht 165.1 cm; Wt 91.6 kg
[2019-02-03] MEDS ORDERED: IV RINGERS SOLUTION,LACTATED 1,000 ML IV SCH (20:29)
--- NOTE | 2019-02-03 20:29 | ED.ADGEN ---
Past History Past Medical History: Anxiety, Arthritis, Bipolar, Diabetes, High Cholesterol, Hypertension, Pneumonia Past Surgical History: Cholecystectomy, Other Smoking: Cigarettes Alcohol Use: None Drug Use: None Adult General Chief Complaint Chief Complaint "...this problem... with my slurred speech .. started day before yesterday.. it happens every time at dinner time... I seen Dr. Xavier yesterday... and was here because I had no meds the other day..... then they said I was having side effects to my meds..." HPI HPI Patient is a 73 year old female who presents with complaints of two days of slurred speech at dinner time. Pt. currently without symptoms. Patient has had recent history of med noncompliance due to financial reasons. Patient seen in ED on 01/26,01/27, 01/31, 02/02 for various complaints most with because of or related to her under lying anxiety, Bipolar, Schizoaffective disorder. [facility] Pt. presents tonight with complaints of slurred speech has resolved by time he arrived to the emergency d epartment. Patient does complain of anxiety and malaise. Review of Systems Review of Systems Constitutional: Denies fever or chills [] Eyes: Denies change in visual acuity, redness, or eye pain [] HENT: Denies nasal congestion or sore throat [] Respiratory: Denies cough or shortness of breath [] Cardiovascular: No additional information not addressed in HPI [] GI: Denies abdominal pain, nausea, vomiting, bloody stools or diarrhea [] : Denies dysuria or hematuria [] Musculoskeletal: Denies back pain or joint pain [] Integument: Denies rash or skin lesions [] Neurologic: Denies headache, focal weakness or sensory changes []complaints of tremor and surgical speech at dinnertime Endocrine: Denies polyuria or polydipsia [] All other systems were reviewed and found to be within normal limits, except as documented in this note. Family History Family History Noncontributory Current Medications Current Medications Current Medications Medications (Trade) Dose Ordered Sig/Zena Start Time Stop Time Status Last Admin Dose Admin Lactated Ringer's 1,000 ml @ 100 mls/hr Q10H 02/03/19 20:29 02/04/19 06:28 02/03/19 20:51 100 MLS/HR See nursing for home meds Allergies Allergies Allergies Coded Allergies Type Severity Reaction Last Updated Verified morphine Allergy Mild Unknown 01/26/19 Yes Penicillins Allergy Unknown 07/30/17 Yes procaine Allergy Unknown 07/30/17 Yes quetiapine Allergy Unknown 07/30/17 Yes Physical Exam Physical Exam Constitutional: In acute emotional distress, non-toxic appearance. [] HENT: Normocephalic, atraumatic, bilateral external ears normal, oropharynx moist, no oral exudates, nose normal. [] Eyes: PERRLA, EOMI, conjunctiva normal, no discharge. [] Neck: Normal range of motion, no tenderness, supple, no stridor. [] Cardiovascular:Heart rate regular rhythm, no murmur []PMI to the left Lungs & Thorax: Bilateral breath sounds equal at apex auscultation [] Abdomen: Bowel sounds normal, soft, no tenderness, no masses, no pulsatile masses. Obese. Skin: Warm, dry, no erythema, no rash. [Poor turgor] Back: No tenderness, no CVA tenderness. [] Extremities: No tenderness, no cyanosis, no clubbing, ROM intact, no edema. Arthritic changes [] Neurologic: Alert and oriented X 3, moves all extremities on request. Has distal sensory, no gross focal deficits noted. [] Psychologic: Affect anxious, judgement some impairment, mood normal. []Pressured speech. Has difficulty concentrating at times. Sister is at bedside. States she at current baseline, other than the increase anxiety and agitation. Current Patient Data Vital Signs Vital Signs Date Time Temp Pulse Resp B/P (MAP) Pulse Ox O2 Delivery O2 Flow Rate FiO2 02/03/19 20:02 98.4 67 14 97 Room Air Lab Results Laboratory Tests Test 02/03/19 20:15 02/03/19 20:30 White Blood Count 9.3 x10^3/uL (4.0-11.0) Red Blood Count 3.47 x10^6/uL (3.50-5.40) L Hemoglobin 12.3 g/dL (12.0-15.5) Hematocrit 35.2 % (36.0-47.0) L Mean Corpuscular Volume 102 fL (79-100) H Mean Corpuscular Hemoglobin 36 pg (25-35) H Mean Corpuscular Hemoglobin Concent 35 g/dL (31-37) Red Cell Distribution Width 12.5 % (11.5-14.5) Platelet Count 229 x10^3/uL (140-400) Neutrophils (%) (Auto) 66 % (31-73) Lymphocytes (%) (Auto) 22 % (24-48) L Monocytes (%) (Auto) 9 % (0-9) Eosinophils (%) (Auto) 2 % (0-3) Basophils (%) (Auto) 0 % (0-3) Neutrophils # (Auto) 6.1 x10^3uL (1.8-7.7) Lymphocytes # (Auto) 2.1 x10^3/uL (1.0-4.8) Monocytes # (Auto) 0.8 x10^3/uL (0.0-1.1) Eosinophils # (Auto) 0.2 x10^3/uL (0.0-0.7) Basophils # (Auto) 0.0 x10^3/uL (0.0-0.2) Erythrocyte Sedimentation Rate 33 (0-25) H Prothrombin Time 10.1 SEC (9.4-11.4) Prothrombin Time INR 1.0 (0.9-1.1) Activated Partial Thromboplast Time 27 SEC (23-33) D-Dimer (Mellisa) 0.62 mg/L (0.00-0.50) H Sodium Level 137 mmol/L (136-145) Potassium Level 4.0 mmol/L (3.5-5.1) Chloride Level 103 mmol/L (98-107) Carbon Dioxide Level 26 mmol/L (21-32) Anion Gap 8 (6-14) Blood Urea Nitrogen 13 mg/dL (7-20) Creatinine 1.0 mg/dL (0.6-1.0) Estimated GFR (Cockcroft-Gault) 54.1 Glucose Level 173 mg/dL (70-99) H Calcium Level 8.8 mg/dL (8.5-10.1) Magnesium Level 1.8 mg/dL (1.8-2.4) Total Bilirubin 0.9 mg/dL (0.2-1.0) Direct Bilirubin 0.2 mg/dL (0.0-0.2) Aspartate Amino Transferase (AST) 43 U/L (15-37) H Alanine Aminotransferase (ALT) 58 U/L (14-59) Alkaline Phosphatase 124 U/L (46-116) H Creatine Kinase 171 U/L (26-192) Troponin I Quantitative < 0.017 ng/mL (0-0.055) IQ-Qni-M-Type Natriuretic Peptide 66 pg/mL (0-449) Total Protein 7.0 g/dL (6.4-8.2) Albumin 3.5 g/dL (3.4-5.0) Lipase 153 U/L (73-393) Urine Collection Type Unknown Urine Color Yellow Urine Clarity Clear Urine pH 5.0 Urine Specific [place] 1.015 Urine Protein Neg (NEG-TRACE) Urine Glucose (UA) Neg mg/dL (NEG) Urine Ketones (Stick) Neg mg/dL (NEG) Urine Blood Neg (NEG) Urine Nitrite Neg (NEG) Urine Bilirubin Neg (NEG) Urine Urobilinogen Dipstick 0.2 mg/dL (0.2 mg/dL) Urine Leukocyte Esterase Neg (NEG) Urine RBC 0 /HPF (0-2) Urine WBC 0 /HPF (0-4) Urine Squamous Epithelial Cells Few /LPF Urine Bacteria 0 /HPF (0-FEW) Urine Opiates Screen Neg (NEG) Urine Methadone Screen Neg (NEG) Urine Barbiturates Neg (NEG) Urine Phencyclidine Screen Neg (NEG) Urine Amphetamine/Methamphetamine Neg (NEG) Urine Benzodiazepines Screen Neg (NEG) Urine Cocaine Screen Neg (NEG) Urine Cannabinoids Screen Neg (NEG) Urine Ethyl Alcohol Neg (NEG) EKG EKG I interpretation EKG shows a sinus rhythm at 64 bpm mild leftward axis. No findings acute STEMI of contralateral changes.[] Radiology/Procedures Radiology/Procedures [][place] [address] IMAGING REPORT Signed PATIENT: SANJAY KIMBALL ACCOUNT: [id number] : 1945 LOCATION: ER AGE: 73 SEX: F EXAM STATUS: REG ER ORD. PHYSICIAN: JAKI HINSON MD REASON: Confusion, speech problems PROCEDURE: CT HEAD WO CONTRAST Exam: CT head INDICATION: Confusion TECHNIQUE: Sequential axial images through the head were obtained without the administration of IV contrast. Comparisons: None FINDINGS: No focal parenchymal lesion or hemorrhage is identified. There is no midline shift or sulcal effacement. No acute vascular territory infarction is identified. Moncada-white distinction is preserved. The ventricular system is within normal limits without compression hydrocephalus. The basal cisterns are well maintained. The visualized portions of the paranasal sinuses and mastoid air cells are well-pneumatized. No acute fractures. IMPRESSION: No acute intracranial abnormality. Exposure: One or more of the following in the visualized dose reduction techniques were utilized for this examination: 1. Automated exposure control 2. Adjustment of the MA and/or KV according to patient size Use of iterative of reconstructive technique Electronically signed by: Betzaida Henley MD (02/03/2019 8:52 PM) [facility] DICTATED AND SIGNED BY: BETZAIDA HENLEY MD DATE: 02/03/192051 CC: JAKI HINSON MD; [address] [address] IMAGING REPORT Signed PATIENT: SANJAY KIMBALL ACCOUNT: [id number] : 1945 LOCATION: ER AGE: 73 SEX: F EXAM STATUS: REG ER ORD. PHYSICIAN: JAKI HINSON MD REASON: Confusion, speech problems PROCEDURE: CT HEAD WO CONTRAST Exam: CT head INDICATION: Confusion TECHNIQUE: Sequential axial images through the head were obtained without the administration of IV contrast. Comparisons: None FINDINGS: No focal parenchymal lesion or hemorrhage is identified. There is no midline shift or sulcal effacement. No acute vascular territory infarction is identified. Moncada-white distinction is preserved. The ventricular system is within normal limits without compression hydrocephalus. The basal cisterns are well maintained. The visualized portions of the paranasal sinuses and mastoid air cells are well-pneumatized. No acute fractures. IMPRESSION: No acute intracranial abnormality. Exposure: One or more of the following in the visualized dose reduction techniques were utilized for this examination: 1. Automated exposure control 2. Adjustment of the MA and/or KV according to patient size Use of iterative of reconstructive technique Electronically signed by: Betzaida Henley MD (02/03/2019 8:52 PM) [facility] DICTATED AND SIGNED BY: BTEZAIDA HENLEY MD DATE: 02/03/192051 CC: JAKI HINSON MD; DAINA ROBERTS ~ Course & Med Decision Making Course & Med Decision Making Pertinent Labs and Imaging studies reviewed. (See chart for details) Discussed presentation, testing and tx. plan with Dr. Lazar. Patient be admitted for further evaluation and treatment. Obtain social service consult. [] Final Impression Final Impression 1. Slurred Speech. 2. Hx extrapyramidal 3. History of anxiety 4.. History of financial noncompliance with anxiety, bipolar and schizoaffective meds 5. History Bipolar / Manic 6. Hx. Schizoaffective Disorder 7. Dementia 8. Mental Status change 9. Macrocytic and hyperchromic indices 10. Diabetes 173 11. Elevated alkaline phosphatase of 124 12. Elevated Sed. 33 13. Elevated D-dimer 14. Out Pt. Treatment Failure [] Dragon Disclaimer Dragon Disclaimer This electronic medical record was generated, in whole or in part, using a voice recognition dictation system. Dragon Disclaimer This chart was dictated in whole or in part using Voice Recognition software in a busy, high-work load, and often noisy Emergency Department environment. It may contain unintended and wholly unrecognized errors or omissions. Dragon Disclaimer This chart was dictated in whole or in part using Voice Recognition software in a busy, high-work load, and often noisy Emergency Department environment. It ma y contain unintended and wholly unrecognized errors or omissions. JAKI HINSON MD Feb 03, 2019 20:29
[2019-02-03 20:45] LABS: BASO % 0 % (0-3); EOS # 0.2 x10^3/uL (0.0-0.7); EOS % 2 % (0-3); HEMATOCRIT 35.2 % (36.0-47.0); HEMOGLOBIN 12.3 g/dL (12.0-15.5); LYMPH # 2.1 x10^3/uL (1.0-4.8); LYMPH % 22 % (24-48); MEAN CORPUSCULAR HEMOGLOBIN 36 pg (25-35); MEAN CORPUSCULAR HGB CONC 35 g/dL (31-37); MEAN CORPUSCULAR VOLUME 102 fL (79-100); MONO # 0.8 x10^3/uL (0.0-1.1); MONO % 9 % (0-9); NEUT # 6.1 x10^3uL (1.8-7.7); NEUT % 66 % (31-73); PLATELET COUNT 229 x10^3/uL (140-400); RED BLOOD COUNT 3.47 x10^6/uL (3.50-5.40); RED CELL DISTRIBUTION WIDTH 12.5 % (11.5-14.5); WHITE BLOOD COUNT 9.3 x10^3/uL (4.0-11.0)
--- NOTE | 2019-02-03 20:55 | RAD ---
Exam: CT head INDICATION: Confusion TECHNIQUE: Sequential axial images through the head were obtained without the administration of IV contrast. Comparisons: None FINDINGS: No focal parenchymal lesion or hemorrhage is identified. There is no midline shift or sulcal effacement. No acute vascular territory infarction is identified. Moncada-white distinction is preserved. The ventricular system is within normal limits without compression hydrocephalus. The basal cisterns are well maintained. The visualized portions of the paranasal sinuses and mastoid air cells are well-pneumatized. No acute fractures. IMPRESSION: No acute intracranial abnormality. Exposure: One or more of the following in the visualized dose reduction techniques were utilized for this examination: 1. Automated exposure control 2. Adjustment of the MA and/or KV according to patient size Use of iterative of reconstructive technique Electronically signed by: Betzaida Toure MD (02/03/2019 8:52 PM) [facility]
[2019-02-03 20:57] LABS: BACTERIA,URINE 0 /HPF (0-FEW); BILIRUBIN,URINE NEG (NEG); CLARITY,URINE CLEAR; COLOR,URINE YELLOW; GLUCOSE,URINE NEG (NEG); NITRITE,URINE NEG (NEG); RBC,URINE 0 /HPF (0-2); SQUAMOUS EPITHELIAL CELL,UR FEW /LPF; UROBILINOGEN,URINE 0.2 mg/dL (0.2 mg/dL); WBC,URINE 0 /HPF (0-4)
[2019-02-03 20:59] LABS: AMPHETAMINE/METHAMPHETAMINE NEG (NEG); BARBITURATES NEG (NEG); BENZODIAZEPINES NEG (NEG); CANNABINOIDS NEG (NEG); COCAINE NEG (NEG); METHADONE NEG (NEG); OPIATES NEG (NEG); PHENCYCLIDINE NEG (NEG)
[2019-02-03 21:00] LABS: ALBUMIN 3.5 g/dL (3.4-5.0); CALCIUM 8.8 mg/dL (8.5-10.1); DIRECT BILIRUBIN 0.2 mg/dL (0.0-0.2); GFR 54.1; MAGNESIUM 1.8 mg/dL (1.8-2.4); TOTAL BILIRUBIN 0.9 mg/dL (0.2-1.0)
--- NOTE | 2019-02-03 21:09 | RAD ---
Exam: Chest one view INDICATION: Weakness, dysphasia TECHNIQUE: Frontal view of the chest Comparisons: None FINDINGS: The cardiomediastinal silhouette and pulmonary vessels are within normal limits. The lung and pleural spaces are clear. IMPRESSION: No acute cardiopulmonary process. Electronically signed by: Betzaida Toure MD (02/03/2019 9:06 PM) [facility]
[2019-02-03 21:48] LABS: SEDIMENTATION RATE 33 (0-25)
[2019-02-03] MEDS ORDERED: ACETAMINOPHEN 325 MG TABLET PO PRN (22:00)
[2019-02-03] MEDS ORDERED: ONDANSETRON PF 4 MG/2 ML VIAL. IV PRN (22:00)
[2019-02-03] MEDS ORDERED: ENOXAPARIN ** NOTE DOSE ** SYRINGE SQ ONE (22:00)
[2019-02-03] MEDS ORDERED: ASPIRIN 81 MG TAB.CHEW PO ONE (22:30)
[2019-02-04] MEDS ORDERED: traZODone 50 MG TABLET. PO ONE (01:00)
[2019-02-04] MEDS ORDERED: ANTI-COAG MONITOR BY PHARMACY. MC PRN (04:00)
[2019-02-04 05:08] VITALS: BP 114/68
[2019-02-04 06:19] VITALS: BP 119/52
[2019-02-04 06:19] LABS: BASO % 0 % (0-3); EOS # 0.2 x10^3/uL (0.0-0.7); EOS % 3 % (0-3); HEMATOCRIT 32.7 % (36.0-47.0); HEMOGLOBIN 11.1 g/dL (12.0-15.5); LYMPH # 2.3 x10^3/uL (1.0-4.8); LYMPH % 30 % (24-48); MEAN CORPUSCULAR HEMOGLOBIN 35 pg (25-35); MEAN CORPUSCULAR HGB CONC 34 g/dL (31-37); MEAN CORPUSCULAR VOLUME 102 fL (79-100); MONO # 0.7 x10^3/uL (0.0-1.1); MONO % 9 % (0-9); NEUT # 4.4 x10^3uL (1.8-7.7); NEUT % 57 % (31-73); PLATELET COUNT 204 x10^3/uL (140-400); RED BLOOD COUNT 3.21 x10^6/uL (3.50-5.40); RED CELL DISTRIBUTION WIDTH 12.6 % (11.5-14.5); WHITE BLOOD COUNT 7.6 x10^3/uL (4.0-11.0)
[2019-02-04 06:25] LABS: CALCIUM 8.3 mg/dL (8.5-10.1); CREATININE 0.7 mg/dL (0.6-1.0); GFR 81.6; POTASSIUM 3.8 mmol/L (3.5-5.1)
--- NOTE | 2019-02-04 06:36 | EKG ---
[address] [address] Test Date: 2019-02-03 Test Time: 20:23:39 Pat Name: SANJAY KIMBALL Department: Room: [place] [address] Gender: F [employer] Burner: : 1945 Requested By: JAKI HINSON Order Number: [id number] Reading MD: Benson Banuelos MD Measurements Intervals [place] Rate: 64 P: 17 CT: 134 QRS: -6 QRSD: 92 T: 61 QT: 378 QTc: 390 Interpretive Statements SINUS RHYTHM Electronically Signed On 02-11-2019 16:51:00 CDT by Benson Banuelos MD
[2019-02-04] MEDS: IPRATRPIUM/ALBUTEROL 0.5/2.5MG 3 ML NEBU. NEB SCH ×2 (08:00→10:19)
[2019-02-04] MEDS ORDERED: ENOXAPARIN ** NOTE DOSE ** SYRINGE SQ SCH (09:00)
[2019-02-04] MEDS ORDERED: ENOXAPARIN 40 MG/0.4 ML SYRINGE. SQ SCH ×2 (10:00→20:00)
[2019-02-04 10:08] VITALS: BP 135/63
[2019-02-04] MEDS ORDERED: ALPRAZolam 0.5 MG TABLET PO PRN (14:30)
[2019-02-04 15:41] VITALS: BP 140/68
[2019-02-04] MEDS ORDERED: metFORMIN 500 MG TABLET PO SCH (17:00)
[2019-02-04] MEDS ORDERED: traZODone 50 MG TABLET. PO SCH (21:00)
[2019-02-04] MEDS ORDERED: DIVALPROEX ER 250 MG TAB.ER.24H. PO SCH (21:00)
[2019-02-04] MEDS ORDERED: BUDESONIDE 0.5 MG/2 ML NEBU NEB SCH (21:00)
--- NOTE | 2019-02-04 21:24 | SSS ---
ADMIT DATE: HISTORY OF PRESENT ILLNESS: The patient is a 73-year-old female patient who came with complaint of slurring speech started the day before yesterday happened at dinnertime. By the time she arrived to the hospital, she was asymptomatic and she has had recent history that she is known to have noncompliance due to financial reasons. The patient was seen in the Emergency Department on 01/26, 01/27, 01/31, 02/02 for various complaints ____ related to her underlying anxiety, bipolar and schizoaffective disorder. She normally follows with Dr. Shaw [facility]. The patient presents with a complaint of slurred speech that has resolved at the time she arrived to the Emergency Room. She was extensively investigated; has had a CT scan of the head, which basically showed just no focal parenchymal lesion or hemorrhage is identified. There is no midline shift or sulcal effacement. No acute vascular territory infarction identified. Sampson-white distinction is preserved. The ventricular system is within normal limits without compression and hydrocephalus. The basal cisterns are well maintained. The visualized portions of the paranasal sinuses and mastoid air cells are well pneumatized. No acute fracture. Her chest x-ray showed no acute cardiopulmonary process. The patient was admitted for observation. She remained stable. She was evaluated by physical and occupational therapy and she was able to walk with a walker and with a cane and has participated in all activities of daily living. Decision was made to discharge her home as she lives with her daughter. PAST MEDICAL HISTORY: Significant for hypertension, type 2 diabetes mellitus as well as chronic obstructive pulmonary disease. She is known to have hypercholesterolemia and bipolar disorder. PAST SURGICAL HISTORY: Unremarkable. FAMILY HISTORY: Noncontributory. SOCIAL HISTORY: Her daughter lives with her. She continued to smoke and has been smoking since she was 14 years old. She does not drink alcohol or use any recreational drugs. ALLERGIES: She is allergic to PENICILLIN, MORPHINE, PROCAINE AND QUETIAPINE. MEDICATIONS: She is currently on following medications: She is on Nicoderm patch 21 mg topically once a day, lisinopril 2.5 mg once a day, aspirin 81 mg once a day, divalproex sodium 250 mg at bedtime, trazodone 50 mg at bedtime, aripiprazole for Abilify 10 mg daily, alprazolam 0.5 mg once a day as needed, potassium chloride 10 mEq once a day, furosemide 20 mg once a day. She is on Pulmicort 0.5 mg/2 mL by nebulizer twice a day, metformin 500 mg twice a day and Januvia 100 mg once a day. PHYSICAL EXAMINATION: GENERAL: When I saw her, she was sitting comfortably in her chair, in no apparent respiratory distress. No pallor, jaundice, cyanosis or thyromegaly. No jugular venous distention. No limb edema. VITAL SIGNS: Her heart rate was 65, blood pressure 135/63, temperature was 97.8, respiratory rate was 18 and oxygen saturation was 99% on room air. HEAD, EYES, EARS, NOSE AND THROAT: Showed normocephalic, atraumatic. NECK: Supple. HEART: Showed normal first and second heart sounds with no gallop, rub or murmur. CHEST: Clear to auscultation. No crepitation or rhonchi. ABDOMEN: Distended, soft, nontender. No guarding or rigidity. No organomegaly. All hernial orifices intact. Bowel sounds normal. NEUROLOGIC: She was awake, alert, responding appropriately. All cranial nerves intact. EXTREMITIES: She moves extremities without difficulty. She ambulates with a walker and a cane without difficulty. LABORATORY DATA: White cell count 7600, hemoglobin 11, hematocrit 33, MCV 107 and platelet count of 206,000. Her prothrombin time was 10.1, INR 1, aPTT was 27. D-dimer was 0.62. Serum sodium was 138, potassium 3.8, chloride 104, bicarbonate 26, anion gap of 8, BUN 12, creatinine 0.7, estimated GFR was 81 mL per minute. Her glucose 146, calcium was 8.3. Her serum triglycerides 152, total cholesterol 115, LDL cholesterol 46, HDL was 39 and ratio was 2. Her TSH was ____. Urinalysis was unremarkable. Toxic screen was essentially negative. Her chest x-ray was unremarkable as well as her head CT scan. She was discharged home to continue on oral antibiotics. She was discharged home to continue on alprazolam for Xanax 0.5 mg once a day as needed, Abilify 10 mg once a day, aspirin 81 mg once a day, Pulmicort 0.5 mg/2 mL by nebulizer twice a day, divalproex for Depakote extended release 250 mg at bedtime, furosemide 20 mg once a day, lisinopril 2.5 mg once a day, metformin 500 mg twice a day, Nicoderm 21 mg transdermal patch once a day, potassium chloride for Klor-Con 10 mEq once a day, Januvia 100 mg once a day and trazodone 50 mg once a day. FINAL DISCHARGE DIAGNOSES: Intermittent slurred speech. Other medical problems include hypertension, type 2 diabetes, chronic obstructive pulmonary disease, hypercholesterolemia, bipolar disorder. NAM MATTHEW MD DR: ROSEMARY/matheus JOB#: [id number] / [id number]
[2019-02-05] MEDS ORDERED: POTASSIUM CHLORIDE 10 MEQ TABLET.ER. PO SCH (08:00)
[2019-02-05] MEDS ORDERED: FUROSEMIDE 20 MG TABLET PO SCH (09:00)
[2019-02-05] MEDS ORDERED: LISINOPRIL 5 MG TABLET. PO SCH (09:00)
[2019-02-05] MEDS ORDERED: LINAGLIPTIN 5 MG TABLET PO SCH (09:00)
[2019-02-05] MEDS ORDERED: ARIPiprazole 10 MG TABLET PO SCH (09:00)
[2019-02-05] MEDS ORDERED: NICOTINE 21MG PATCH. TD SCH (09:00)
[2019-02-05] MEDS ORDERED: ASPIRIN ENTERIC COATED 81 MG TABLET.DR. PO SCH (09:00)
== END 2019-02-04 16:03 | disposition home or self-care (01) ==
LOC: ER 20:02 → ICU 20:30 → INTOOBSV 20:30
PROVIDERS: ADMIT Internal Medicine; ATTEND Internal Medicine
DX: R47.81 Slurred speech (principal); I10 Essential (primary) hypertension; E78.00 Pure hypercholesterolemia, unspecified; E11.9 Type 2 diabetes mellitus without complications; F31.9 Bipolar disorder, unspecified; F41.9 Anxiety disorder, unspecified; F17.210 Nicotine dependence, cigarettes, uncomplicated; M19.90 Unspecified osteoarthritis, unspecified site; F25.9 Schizoaffective disorder, unspecified; J44.9 Chronic obstructive pulmonary disease, unspecified; Z90.49 Acquired absence of other specified parts of digestive tract; Z91.19 Patient's noncompliance with other medical treatment and regimen; Z91.14 Patient's other noncompliance with medication regimen; Z88.5 Allergy status to narcotic agent; Z88.0 Allergy status to penicillin; Z88.8 Allergy status to other drugs, medicaments and biological substances
CPT/HCPCS: 36415; 70450; 71045; 80048; 80061; 80076; 80307; 81001; 82550; 82947; 83690; 83735; 83880; 84443; 84484; 85025; 85379; 85610; 85651; 85730; 87641; 93005; 94640; 96361; 96372; 96374; 99284; 99406; G0238; G0378; G0379; J1650; J2060; J7120; J7620; 97110; 99285-25

== ENCOUNTER 2019-02-18 10:42 | Emergency (ER) | payer MEDICARE ==
[2019-02-18 11:29] LABS: BASO # 0.1 x10^3/uL (0.0-0.2); BASO % 1 % (0-3); EOS # 0.1 x10^3/uL (0.0-0.7); EOS % 1 % (0-3); HEMATOCRIT 38.8 % (36.0-47.0); HEMOGLOBIN 13.3 g/dL (12.0-15.5); LYMPH # 1.9 x10^3/uL (1.0-4.8); LYMPH % 20 % (24-48); MEAN CORPUSCULAR HEMOGLOBIN 35 pg (25-35); MEAN CORPUSCULAR HGB CONC 34 g/dL (31-37); MEAN CORPUSCULAR VOLUME 102 fL (79-100); MONO # 0.9 x10^3/uL (0.0-1.1); MONO % 9 % (0-9); NEUT # 6.6 x10^3uL (1.8-7.7); NEUT % 69 % (31-73); PLATELET COUNT 242 x10^3/uL (140-400); RED BLOOD COUNT 3.82 x10^6/uL (3.50-5.40); RED CELL DISTRIBUTION WIDTH 12.2 % (11.5-14.5); WHITE BLOOD COUNT 9.6 x10^3/uL (4.0-11.0)
[2019-02-18 11:34] LABS: ALBUMIN 3.8 g/dL (3.4-5.0); ALBUMIN/GLOBULIN RATIO 1.1 (1.0-1.7); CALCIUM 9.4 mg/dL (8.5-10.1); CREATININE 0.9 mg/dL (0.6-1.0); MAGNESIUM 1.9 mg/dL (1.8-2.4); POTASSIUM 3.7 mmol/L (3.5-5.1); TOTAL BILIRUBIN 1.4 mg/dL (0.2-1.0); TOTAL PROTEIN 7.4 g/dL (6.4-8.2)
[2019-02-18 12:35] LABS: BACTERIA,URINE FEW /HPF (0-FEW); BILIRUBIN,URINE SMALL (NEG); CLARITY,URINE HAZY; COLOR,URINE AMBER; GLUCOSE,URINE NEG (NEG); NITRITE,URINE NEG (NEG); SQUAMOUS EPITHELIAL CELL,UR MOD /LPF; UROBILINOGEN,URINE 0.2 mg/dL (0.2 mg/dL)
[2019-02-18 12:36] LABS: HYALINE CASTS, URINE OCC /HPF
--- NOTE | 2019-02-18 12:38 | PHYS DOC ---
Past History Past Medical History: Anxiety, Arthritis, Bipolar, Diabetes, High Cholesterol, Hypertension, Pneumonia (VIC ROYAL DO) Past Surgical History: Cholecystectomy, Other (VIC ROYAL DO) Smoking: Cigarettes Alcohol Use: None Drug Use: None (VIC ROYAL DO) Adult General Chief Complaint Chief Complaint: PSYCH EVALUATION HPI HPI 73-year-old female presents for medical clearance for behavioral health admission. Patient is stated to be very irritable and emotional. She is talking and pressured speech almost constantly. She is talking whether or not there someone else in the room. She denies any medical complaints. (VIC ROYAL DO) Review of Systems Review of Systems Constitutional: Denies fever or chills [] Eyes: Denies change in visual acuity, redness, or eye pain [] HENT: Denies nasal congestion or sore throat [] Respiratory: Denies cough or shortness of breath [] Cardiovascular: No additional information not addressed in HPI [] GI: Denies abdominal pain, nausea, vomiting, bloody stools or diarrhea [] : Denies dysuria or hematuria [] Musculoskeletal: Denies back pain or joint pain [] Integument: Denies rash or skin lesions [] Neurologic: Denies headache, focal weakness or sensory changes [] Endocrine: Denies polyuria or polydipsia [] All other systems were reviewed and found to be within normal limits, except as documented in this note. (VIC ROYAL DO) Allergies Allergies Allergies Coded Allergies Type Severity Reaction Last Updated Verified Penicillins Allergy Intermediate 02/04/19 Yes procaine Allergy Intermediate 02/04/19 Yes quetiapine Allergy Intermediate 02/04/19 Yes morphine Allergy Mild Unknown 01/26/19 Yes (VIC ROYAL DO) Physical Exam Physical Exam Constitutional: Well developed, well nourished, no acute distress, non-toxic appearance. [] HENT: Normocephalic, atraumatic, bilateral external ears normal, oropharynx mo ist, no oral exudates, nose normal. [] Eyes: PERRLA, EOMI, conjunctiva normal, no discharge. [] Neck: Normal range of motion, no tenderness, supple, no stridor. [] Cardiovascular:Heart rate regular rhythm, no murmur [] Lungs & Thorax: Bilateral breath sounds clear to auscultation [] Abdomen: Bowel sounds normal, soft, no tenderness, no masses, no pulsatile masses. [] Skin: Warm, dry, no erythema, no rash. [] Back: No tenderness, no CVA tenderness. [] Extremities: No tenderness, no cyanosis, no clubbing, ROM intact, no edema. [] Neurologic: Alert and oriented X 3, normal motor function, normal sensory function, no focal deficits noted. [] Psychologic: Affect normal, judgement normal, mood normal. [] (VIC ROYAL DO) Current Patient Data Lab Results Laboratory Tests Test 02/18/19 11:07 02/18/19 12:10 White Blood Count 9.6 x10^3/uL (4.0-11.0) Red Blood Count 3.82 x10^6/uL (3.50-5.40) Hemoglobin 13.3 g/dL (12.0-15.5) Hematocrit 38.8 % (36.0-47.0) Mean Corpuscular Volume 102 fL (79-100) H Mean Corpuscular Hemoglobin 35 pg (25-35) Mean Corpuscular Hemoglobin Concent 34 g/dL (31-37) Red Cell Distribution Width 12.2 % (11.5-14.5) Platelet Count 242 x10^3/uL (140-400) Neutrophils (%) (Auto) 69 % (31-73) Lymphocytes (%) (Auto) 20 % (24-48) L Monocytes (%) (Auto) 9 % (0-9) Eosinophils (%) (Auto) 1 % (0-3) Basophils (%) (Auto) 1 % (0-3) Neutrophils # (Auto) 6.6 x10^3uL (1.8-7.7) Lymphocytes # (Auto) 1.9 x10^3/uL (1.0-4.8) Monocytes # (Auto) 0.9 x10^3/uL (0.0-1.1) Eosinophils # (Auto) 0.1 x10^3/uL (0.0-0.7) Basophils # (Auto) 0.1 x10^3/uL (0.0-0.2) Sodium Level 137 mmol/L (136-145) Potassium Level 3.7 mmol/L (3.5-5.1) Chloride Level 102 mmol/L (98-107) Carbon Dioxide Level 27 mmol/L (21-32) Anion Gap 8 (6-14) Blood Urea Nitrogen 13 mg/dL (7-20) Creatinine 0.9 mg/dL (0.6-1.0) Estimated GFR (Cockcroft-Gault) 61.0 BUN/Creatinine Ratio 14 (6-20) Glucose Level 113 mg/dL (70-99) H Calcium Level 9.4 mg/dL (8.5-10.1) Magnesium Level 1.9 mg/dL (1.8-2.4) Total Bilirubin 1.4 mg/dL (0.2-1.0) H Aspartate Amino Transferase (AST) 33 U/L (15-37) Alanine Aminotransferase (ALT) 40 U/L (14-59) Alkaline Phosphatase 98 U/L (46-116) Total Protein 7.4 g/dL (6.4-8.2) Albumin 3.8 g/dL (3.4-5.0) Albumin/Globulin Ratio 1.1 (1.0-1.7) Urine Collection Type Unknown Urine Color [place] Urine Clarity Hazy Urine pH 5.5 Urine Specific [place] 1.020 Urine Protein Neg (NEG-TRACE) Urine Glucose (UA) Neg mg/dL (NEG) Urine Ketones (Stick) Trace mg/dL (NEG) Urine Blood Neg (NEG) Urine Nitrite Neg (NEG) Urine Bilirubin Small (NEG) Urine Urobilinogen Dipstick 0.2 mg/dL (0.2 mg/dL) Urine Leukocyte Esterase Neg (NEG) Urine RBC 1-2 /HPF (0-2) Urine WBC 1-4 /HPF (0-4) Urine Squamous Epithelial Cells Mod /LPF Urine Bacteria Few /HPF (0-FEW) Urine Hyaline Casts Occ /HPF Urine Mucus Mod /LPF (VIC ROYAL DO) EKG EKG Sinus rhythm, rate 66, leftward axis, no ST elevations or depressions.[] (VIC ROYAL DO) Radiology/Procedures Radiology/Procedures [] (VIC ROYAL DO) Course & Med Decision Making Course & Med Decision Making Pertinent Labs and Imaging studies reviewed. (See chart for details) Patient's labs are unremarkable. Her urinalysis is pending. Psych eval is pending. Patient's urinalysis is unremarkable. She is medically stable for [facility] admission. []Patient has been accepted for admission at [facility]. She will go by ambulance. (VIC ROYAL DO) Course & Med Decision Making i saw the patient several times during the shift. was talkative pressured speech but easily redirectable. reviewed labs. gave zolpidem for insomnia, sleeping well as of now. plan for [facility] at 8 am, care to [facility] 6 am. (AMANDA RESENDIZ MD) Dragon Disclaimer Dragon Disclaimer This electronic medical record was generated, in whole or in part, using a voice recognition dictation system. (VIC ROYAL DO) Departure Departure: Impression: Primary Impression: Medical clearance for psychiatric admission Additional Impression: Bipolar 1 disorder Disposition: 65 XFER TO PSYCH HOSP/UNIT Condition: STABLE Referrals: DAINA ROBERTS (PCP) Problem Qualifiers VIC ROYAL DO Feb 18, 2019 12:38 AMANDA RESENDIZ MD Feb 19, 2019 05:38
--- NOTE | 2019-02-18 14:46 | EKG ---
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
[2019-02-19] MEDS ORDERED: ZOLPIDEM 5 MG TABLET. PO ONE (02:30)
[2019-02-19 08:48] VITALS: BP 129/58
== END 2019-02-19 09:15 ==
LOC: ER 10:42
DX: Z00.8 Encounter for other general examination (principal); F31.9 Bipolar disorder, unspecified; F41.9 Anxiety disorder, unspecified; M19.90 Unspecified osteoarthritis, unspecified site; E11.9 Type 2 diabetes mellitus without complications; I10 Essential (primary) hypertension; E78.00 Pure hypercholesterolemia, unspecified; F17.210 Nicotine dependence, cigarettes, uncomplicated; Z88.0 Allergy status to penicillin; Z88.4 Allergy status to anesthetic agent; Z88.5 Allergy status to narcotic agent; Z88.8 Allergy status to other drugs, medicaments and biological substances
CPT/HCPCS: 36415; 80053; 81001; 83540; 83550; 83735; 85025; 93005; 99285

== ENCOUNTER 2019-06-18 04:15 | Inpatient (IN) | payer MEDICARE ==
[~2019-06-18] VITALS: Ht 157.5 cm; Wt 95.4 kg
--- NOTE | 2019-06-18 04:28 | PHYS DOC ---
Past History Past Medical History: Anxiety, Arthritis, Bipolar, COPD, Diabetes, High Cholesterol, Hypertension, Pneumonia Past Surgical History: Cholecystectomy, Other Smoking: Cigarettes Alcohol Use: None Drug Use: None Adult General Chief Complaint Chief Complaint: "... I fell.. .I hurt... .my hips hurt.... my back hurts... I got .... fevers'... " HPI HPI Patient is a 73 year old female who presents with hx of fall and fever. Pt. reportedly up to go to bath room with assistance of daughter. Pt. was left alone for a short time fell. Pt. was found to have a fever by paramedics. Patient localizes her pain in lumbar region and pelvic. Pain seems to be more in left hip. Patient does have a history of chronic low back pain. Patient is somewhat a poor historian however has taken trazodone to sleep tonight. Patient is exposed to daughter who has influenza. Pt. normally follows with Dr. Shaw. Pt. states she did have a pneumonia shot this year, but did not get flu vaccination. Pt. still smokes. Review of Systems Review of Systems Constitutional: Complaints of fever or chills [] Eyes: Denies change in visual acuity, redness, or eye pain [] HENT: Denies nasal congestion or sore throat [] Respiratory: Denies cough or shortness of breath [] Cardiovascular: No additional information not addressed in HPI [] GI: Denies abdominal pain, nausea, vomiting, bloody stools or diarrhea [] : Denies dysuria or hematuria [] Musculoskeletal: Complains of low back pain and left hip pain. Integument: Denies rash or skin lesions [] Neurologic: Denies headache, focal weakness or sensory changes [] Endocrine: Denies polyuria or polydipsia [] All other systems were reviewed and found to be within normal limits, except as documented in this note. Family History Family History Not currently available-daughter has had influenza Current Medications Current Medications See nursing for home meds Allergies Allergies Allergies Coded Allergies Type Severity Reaction Last Updated Verified Penicillins Allergy Intermediate 02/04/19 Yes procaine Allergy Intermediate 02/04/19 Yes quetiapine Allergy Intermediate 02/04/19 Yes morphine Allergy Mild Unknown 01/26/19 Yes Physical Exam Physical Exam Constitutional: Moderate acute distress,over sedated in appearance. [] HENT: Normocephalic, atraumatic, bilateral external ears normal, oropharynx dry, no oral exudates, nose swollen turbinates and clear rhinorrhea. Eyes: PERRLA, EOMI, conjunctiva normal, no discharge. [] Neck: Normal range of motion, no tenderness, supple, no stridor. [] Cardiovascular:Heart rate regular rhythm, no murmur. PMI to the left Lungs & Thorax: Bilateral breath sounds equal at apexes with scattered wheezes on auscultation [] Abdomen: Bowel sounds normal, soft, no tenderness, no masses, no pulsatile masses. Obese. Incontinence of urine. Old surgical scar. Skin: Warm, dry, no erythema, no rash. Poor turgor. Back: Lumbar sacral tenderness, no CVA tenderness. [] Extremities: Hip tenderness bilateral lower , more tender in left, no cyanosis, no clubbing, moves extremities on request, bilateral ankle edema. Arthritic changes Neurologic: Alert and oriented to name and know s she in a hospital, , moves extremities on request. Has distal sensory, very confused , appears over sedated - narcotic, sedation med? Requires noxious or marked stimuli to answer questions. Psychologic: Affect anxious, judgement appears moderately impaired possibly results of trazodone, pain meds, benzos, muscle relaxant, psych med.s?, did take trazodone for sleep prior to arrival, mood normal. [] EKG EKG I interpretation EKG shows a sinus rhythm at 81 bpm. Mild leftward axis. Nonspecific T-wave changes. But no findings acute STEMI of contralateral changes[] Radiology/Procedures Radiology/Procedures [address] [address] IMAGING REPORT Signed PATIENT: SANJAY KIMBALL ACCOUNT: [id number] : 1945 LOCATION: ER AGE: 73 SEX: F EXAM STATUS: REG ER ORD. PHYSICIAN: JAKI HINSON MD REASON: FALL PROCEDURE: CT LUMBAR SPINE WO CONTRAST Exam: CT lumbar spine. CT pelvis INDICATION: Fall TECHNIQUE: Sequential axial images through the lumbar spine and pelvis obtained without IV contrast. Sagittal and coronal reformatted images were reconstructed from the axial data and reviewed. Comparisons: None FINDINGS: Lumbar spine: Vertebral body heights and alignment are well-maintained. Fracture to the lumbar spine is not identified. Mild broad-based disc bulges at L2-L3, L3-L4 and L4-L5 without significant neural foraminal or spinal canal stenosis. Mild bilateral facet arthropathy is also noted throughout the lumbar spine. Visualized paraspinal soft tissues are unremarkable. Pelvis: Visualized intrapelvic structures are unremarkable. Bone mineralization is normal. No acute fractures identified. Pubic symphysis, sacroiliac joint and hip joints are well-maintained. Soft tissues of the lower extremities are unremarkable. IMPRESSION: 1. Negative CT L-spine for acute traumatic injury. 2. No acute traumatic injury identified in the pelvis. Exposure: One or more of the following in the visualized dose reduction techniques were utilized for this examination: 1. Automated exposure control 2. Adjustment of the MA and/or KV according to patient size 3. Use of iterative of reconstructive technique Electronically signed by: Betzaida Henley MD (06/18/2019 5:43 AM) [facility] DICTATED AND SIGNED BY: BETZAIDA HENLEY MD DATE: 06/18/19 0543 CC: JAKI HINSON MD; DAINA SHAW ~ [][address] [address] IMAGING REPORT Signed PATIENT: SANJAY KIMBALL ACCOUNT: [id number] : 1945 LOCATION: ER AGE: 73 SEX: F EXAM STATUS: REG ER ORD. PHYSICIAN: JAKI HINSON MD REASON: FALL, FEVER PROCEDURE: PORTABLE CHEST 1V Exam: Chest one view INDICATION: Fall, fever TECHNIQUE: Frontal view of the chest Comparisons: 02/04/2016 FINDINGS: The cardiomediastinal silhouette and pulmonary vessels are within normal limits. The lung and pleural spaces are clear. IMPRESSION: No acute cardiopulmonary process. Electronically signed by: Betzaida Henley MD (06/18/2019 5:37 AM) [facility] DICTATED AND SIGNED BY: BETZAIDA HENLEY MD DATE: 06/18/19536 CC: JAKI HINSON MD; DAINA SHAW ~ IMAGING REPORT Signed PATIENT: SANJAY KIMBALL ACCOUNT: [id number] : 1945 LOCATION: ER AGE: 73 SEX: F EXAM STATUS: REG ER ORD. PHYSICIAN: JAKI HINSON MD REASON: FALL PROCEDURE: CT HEAD AND CERVICAL SPINE WO Exam: CT head and cervical spine without contrast INDICATION: Fall TECHNIQUE: Sequential axial images through the head and cervical spine were obtained without the administration of IV contrast. Comparisons: None FINDINGS: Head: No focal parenchymal lesion or hemorrhage is identified. There is no midline shift or sulcal effacement. No acute vascular territory infarction is identified. Moncada-white distinction is preserved. The ventricular system is within normal limits without compression hydrocephalus. The basal cisterns are well maintained. The visualized portions of the paranasal sinuses and mastoid air cells are well-pneumatized. No acute fractures. Cervical spine: There is straightening of cervical spine which may be positional. Vertebral body heights are well-maintained. Fracture to the cervical spine is not identified. Mild spondylotic change in the cervical spine with degenerative disc disease greatest at C6-C7. Mild bilateral facet arthropathy is noted in the cervical spine. Visualized paraspinal soft tissues are unremarkable. IMPRESSION: 1. No acute intracranial abnormality. 2. Negative CT C-spine for acute traumatic injury. Exposure: One or more of the following in the visualized dose reduction techniques were utilized for this examination: 1. Automated exposure control 2. Adjustment of the MA and/or KV according to patient size Use of iterative of reconstructive technique Electronically signed by: Betzaida Henley MD (06/18/2019 5:36 AM) [facility] DICTATED AND SIGNED BY: BETZAIDA HENLEY MD DATE: 06/18/19535 CC: JAKI HINSON MD; DAINA SHAW ~ Course & Med Decision Making Course & Med Decision Making Pertinent Labs and Imaging studies reviewed. (See chart for details) Pt. still confused and appears over sedated at shift change. Discussed presentation, testing and tx. plan with Dr. Lazar. Will admit for further eval and tx. Etiology of fever is unclear. Impression: 1. Fall 2. Fever 3. Lumbar and sacral Pain 4. Lt. Hip pain 5. Macrocytic indices 6. Elevated Bun, Creat. 21/1.2 7. DM - glucose 126 8. Elevated Aneesh T/D =1.6/0.3 9. Elevated CK 302 10. Confusion- trazodone vs fever vs dementia vs benzo/depakote 11. Dehydration [] Dragon Disclaimer Dragon Disclaimer This electronic medical record was generated, in whole or in part, using a voice recognition dictation system. Departure Departure: Disposition: 01 HOME/RESIDENCE PRIOR TO ADM Condition: STABLE Referrals: DAINA SHAW (PCP) Hank Disclaimer This chart was dictated in whole or in part using Voice Recognition software in a busy, high-work load, and often noisy Emergency Department environment. It may contain unintended and wholly unrecognized errors or omissions. Dragon Disclaimer This chart was dictated in whole or in part using Voice Recognition software in a busy, high-work load, and often noisy Emergency Department environment. It may contain unintended and wholly unrecognized errors or omissions. JAKI HINSON MD Jun 18, 2019 04:28
[2019-06-18] MEDS ORDERED: IV RINGERS SOLUTION,LACTATED 1,000 ML IV SCH (04:30)
[2019-06-18] MEDS ORDERED: ACETAMINOPHEN 500 MG TABLET PO ONE (04:45)
[2019-06-18 04:57] LABS: BASO # 0.1 x10^3/uL (0.0-0.2); BASO % 1 % (0-3); EOS % 0 % (0-3); HEMATOCRIT 40.9 % (36.0-47.0); HEMOGLOBIN 13.6 g/dL (12.0-15.5); LYMPH # 0.4 x10^3/uL (1.0-4.8); LYMPH % 4 % (24-48); MEAN CORPUSCULAR HEMOGLOBIN 34 pg (25-35); MEAN CORPUSCULAR HGB CONC 33 g/dL (31-37); MEAN CORPUSCULAR VOLUME 102 fL (79-100); MONO # 0.9 x10^3/uL (0.0-1.1); MONO % 9 % (0-9); NEUT # 8.6 x10^3uL (1.8-7.7); NEUT % 86 % (31-73); PLATELET COUNT 148 x10^3/uL (140-400); RED BLOOD COUNT 4.02 x10^6/uL (3.50-5.40); RED CELL DISTRIBUTION WIDTH 12.9 % (11.5-14.5)
[2019-06-18 05:01] LABS: CALCIUM 8.8 mg/dL (8.5-10.1); CREATININE 1.2 mg/dL (0.6-1.0); GFR 43.8; POTASSIUM 4.1 mmol/L (3.5-5.1)
[2019-06-18 05:10] LABS: INFLUENZA A PATIENT NEGATIVE (NEGATIVE); INFLUENZA B PATIENT NEGATIVE (NEGATIVE)
[2019-06-18 05:14] LABS: ALBUMIN 3.6 g/dL (3.4-5.0); DIRECT BILIRUBIN 0.3 mg/dL (0.0-0.2); MAGNESIUM 1.9 mg/dL (1.8-2.4); TOTAL BILIRUBIN 1.6 mg/dL (0.2-1.0); TOTAL PROTEIN 7.3 g/dL (6.4-8.2)
--- NOTE | 2019-06-18 05:39 | RAD ---
Exam: CT head and cervical spine without contrast INDICATION: Fall TECHNIQUE: Sequential axial images through the head and cervical spine were obtained without the administration of IV contrast. Comparisons: None FINDINGS: Head: No focal parenchymal lesion or hemorrhage is identified. There is no midline shift or sulcal effacement. No acute vascular territory infarction is identified. Moncada-white distinction is preserved. The ventricular system is within normal limits without compression hydrocephalus. The basal cisterns are well maintained. The visualized portions of the paranasal sinuses and mastoid air cells are well-pneumatized. No acute fractures. Cervical spine: There is straightening of cervical spine which may be positional. Vertebral body heights are well-maintained. Fracture to the cervical spine is not identified. Mild spondylotic change in the cervical spine with degenerative disc disease greatest at C6-C7. Mild bilateral facet arthropathy is noted in the cervical spine. Visualized paraspinal soft tissues are unremarkable. IMPRESSION: 1. No acute intracranial abnormality. 2. Negative CT C-spine for acute traumatic injury. Exposure: One or more of the following in the visualized dose reduction techniques were utilized for this examination: 1. Automated exposure control 2. Adjustment of the MA and/or KV according to patient size Use of iterative of reconstructive technique Electronically signed by: Betzaida Toure MD (06/18/2019 5:36 AM) [facility]
--- NOTE | 2019-06-18 05:40 | RAD ---
Exam: Chest one view INDICATION: Fall, fever TECHNIQUE: Frontal view of the chest Comparisons: 02/04/2016 FINDINGS: The cardiomediastinal silhouette and pulmonary vessels are within normal limits. The lung and pleural spaces are clear. IMPRESSION: No acute cardiopulmonary process. Electronically signed by: Betzaida Toure MD (06/18/2019 5:37 AM) [facility]
--- NOTE | 2019-06-18 05:46 | RAD ---
Exam: CT lumbar spine. CT pelvis INDICATION: Fall TECHNIQUE: Sequential axial images through the lumbar spine and pelvis obtained without IV contrast. Sagittal and coronal reformatted images were reconstructed from the axial data and reviewed. Comparisons: None FINDINGS: Lumbar spine: Vertebral body heights and alignment are well-maintained. Fracture to the lumbar spine is not identified. Mild broad-based disc bulges at L2-L3, L3-L4 and L4-L5 without significant neural foraminal or spinal canal stenosis. Mild bilateral facet arthropathy is also noted throughout the lumbar spine. Visualized paraspinal soft tissues are unremarkable. Pelvis: Visualized intrapelvic structures are unremarkable. Bone mineralization is normal. No acute fractures identified. Pubic symphysis, sacroiliac joint and hip joints are well-maintained. Soft tissues of the lower extremities are unremarkable. IMPRESSION: 1. Negative CT L-spine for acute traumatic injury. 2. No acute traumatic injury identified in the pelvis. Exposure: One or more of the following in the visualized dose reduction techniques were utilized for this examination: 1. Automated exposure control 2. Adjustment of the MA and/or KV according to patient size 3. Use of iterative of reconstructive technique Electronically signed by: Betzaida Toure MD (06/18/2019 5:43 AM) [facility]
[2019-06-18] MEDS ORDERED: ONDANSETRON PF 4 MG/2 ML VIAL. IV PRN (06:30)
[2019-06-18] MEDS: IV RINGERS SOLUTION,LACTATED 1,000 ML IV SCH ×3 (06:30→15:54)
[2019-06-18 06:34] LABS: BILIRUBIN,URINE NEG (NEG); CLARITY,URINE CLEAR; COLOR,URINE YELLOW; GLUCOSE,URINE NEG (NEG)
[2019-06-18 06:35] LABS: BACTERIA,URINE 0 /HPF (0-FEW); NITRITE,URINE NEG (NEG); RBC,URINE RARE /HPF (0-2); SQUAMOUS EPITHELIAL CELL,UR FEW /LPF; WBC,URINE OCC /HPF (0-4)
[2019-06-18 06:53] LABS: VAL ACID 13 mcg/mL (50-100)
[2019-06-18] MEDS: IPRATRPIUM/ALBUTEROL 0.5/2.5MG 3 ML NEBU. NEB SCH ×4 (08:00→21:29)
[2019-06-18 11:34] LABS: INFLUENZA A PATIENT NEGATIVE (NEGATIVE); INFLUENZA B PATIENT NEGATIVE (NEGATIVE)
[2019-06-18 11:49] VITALS: BP 125/54
[2019-06-18] MEDS ORDERED: GABA600T7 PO (12:02)
[2019-06-18] MEDS ORDERED: ARIP15TA36 PO (12:02)
[2019-06-18] MEDS ORDERED: FLUT1BLS3 IH (12:02)
[2019-06-18] MEDS ORDERED: LORA-254 PO (12:02)
[2019-06-18] MEDS ORDERED: DIVA500T4 PO (12:02)
[2019-06-18] MEDS: ACETAMINOPHEN 325 MG TABLET PO PRN ×2 (12:32→17:57)
[2019-06-18 12:45] VITALS: BP 120/60
[2019-06-18] MEDS ORDERED: VANCOMYCIN PER PHARMACY MC PRN (13:00)
[2019-06-18] MEDS ORDERED: VANCOMYCIN 2 GM in IV NORMAL SALINE 500ML 500 ML IV ONE (13:30)
--- NOTE | 2019-06-18 13:40 | HP ---
ADMIT DATE: 06/18/2019 HISTORY OF PRESENT ILLNESS: The patient is a 73-year-old female patient, who was brought to the Emergency Room with a history of fall and fever. She reportedly up to go to bathroom with assistance of her daughter. The patient was left alone for a short period of time. She fell. She was found to have fever by paramedics. The patient localized her pain in her lumbar region and pelvis. The pain seems to be more in the left hip. She does have a history of chronic low back pain. The patient is somewhat a poor historian; however, has taken trazodone to sleep the night before. She was exposed to daughter who has influenza. She apparently had had her pneumonia shot, but did not receive her flu vaccination. She continued to smoke up to 2 packs a day. She was extensively investigated in the Emergency Room and her lab work showed her white cell count was normal. Chemistry showed that she is slightly dehydrated; however, lactic acid was only 0.9. Urinalysis was unremarkable. Toxic screen was also unremarkable. The influenza A and B were done twice and both times it turned out to be negative. She has multiple imaging studies, which showed no evidence of any fracture; however, the patient continued to be excessively sedated and confused and therefore, a decision was made to admit her for further evaluation and treatment. The etiology of her fever remains unclear. PAST MEDICAL HISTORY: Significant for hypertension, type 2 diabetes mellitus as well as chronic obstructive pulmonary disease. She is known to have hypercholesterolemia and bipolar disorder. PAST SURGICAL HISTORY: Unremarkable. FAMILY HISTORY: Noncontributory. SOCIAL HISTORY: Her daughter lives with her. She continues to smoke and has been smoking since she was 14 years old. She does not drink alcohol or use any recreational drugs. ALLERGIES: She is allergic to PENICILLIN, MORPHINE, PROCAINE AND QUETIAPINE. MEDICATIONS: She is currently on following medications: She is on Nicoderm patch 21 mg topically daily, lisinopril 2.5 mg once a day, aspirin 81 mg once a day, divalproex sodium 500 mg at bedtime, gabapentin 400 mg at bedtime, trazodone 50 mg at bedtime, aripiprazole 15 mg daily, lorazepam 2 mg at bedtime, potassium chloride for Klor-Con 10 mEq once a day, furosemide 20 mg once a day. She is on Trelegy Ellipta 1 inhalation once a day, sitagliptin phosphate 100 mg daily. REVIEW OF SYSTEMS: Unobtainable. The patient is very lethargic. PHYSICAL EXAMINATION: GENERAL: On arrival to the Emergency Room, the patient looked well and was in no apparent respiratory distress. No pallor, jaundice or cyanosis. No lymphadenopathy, no thyromegaly. No jugular venous distention. No limb edema. VITAL SIGNS: Her heart rate was 83, blood pressure was 141/64, temperature on arrival was 101.1 and has risen further to 102. Her oxygen saturation was 90% on room air. HEAD, EYES, EARS, NOSE AND THROAT: Showed normocephalic, atraumatic. NECK: Supple and there is definitely no evidence of neck rigidity and Kernig's sign was negative. HEART: Showed normal first and second heart sounds. No gallop, rub or murmur. CHEST: Clear to auscultation. No crepitation or rhonchi. ABDOMEN: Distended, soft, nontender. NEUROLOGIC: She was lethargic, but arousable. She does open her eyes and answers some questions. She seemed to be able to move her extremities spontaneously, although has more pain in the left hip joint. LABORATORY DATA: Her lab work on arrival showed a white cell count of 10,000, hemoglobin 13.6, hematocrit 41, MCV 102 and platelet count of 148,000 with a manual differential of 86% polymorphs, 4% lymphocytes, 9% monocytes. Her prothrombin time, INR and D-dimer was normal. Her chemistry showed a serum sodium 138, potassium 4.1, chloride 101, bicarbonate 30, anion gap of 7, BUN 21, creatinine 1.2, estimated GFR was 44 mL per minute. Her glucose 176, calcium was 8.8, lactic acid was only 0.9, magnesium was 1.9. Total bilirubin slightly elevated at 1.6; however, AST, ALT, alkaline phosphatase were normal. CK was 302. Beta natriuretic peptide was 130. Total protein was 7.3, albumin 3.6. Urinalysis showed the urine was yellow, clear with a pH of 6.5, specific gravity 1.020. The urine was negative for protein, glucose, ketones, blood, nitrite, leukocyte esterase. There are rare rbc's, occasional wbc's, very few bacteria. Toxic screen showed her valproic acid was only 13 mcg/mL. Her influenza A and B done twice and both times were negative. Her chest x-ray showed that the cardiomediastinal silhouette and pulmonary vessels are within normal limits. The lungs and pleural spaces are clear. Given the fall and the pain in her left hip joint, she has a lumbar spine CT, which showed that the vertebral body heights and alignments are well maintained. Fracture of the lumbar spine is not identified. Mild, broad-based disk bulge at L2-L3, L3-L4 and L4-L5 without significant neuroforaminal or spinal canal stenosis. Mild bilateral facet arthropathy is also noted throughout the lumbar spine. Visualized paraspinal soft tissues are unremarkable. The visualized intrapelvic structures are unremarkable. Bone mineralization is normal. No acute fracture identified. Pubic symphysis, sacroiliac joint and hip joints are well maintained. Soft tissues of the lower extremities are unremarkable. The CT scan of the head and pelvis showed that the patient has no acute intracranial abnormality and negative CT spine for acute traumatic injury. ASSESSMENT AND PLAN: The patient was admitted for altered mental status and fever, the source of which is not clear. We did send urine and blood for culture and sensitivity. I will hold all her sedating medications. She is on gabapentin, trazodone, aripiprazole and lorazepam. I also held her lisinopril and furosemide and given that she is dehydrated, we will continue with IV fluid. I will start her empirically on IV meropenem and vancomycin. She is dehydrated and my feeling that she probably has pneumonia, although I cannot prove that. We will obviously adjust her antibiotics according the result of the culture and sensitivity. NAM MATTHEW MD DR: RSOEMARY/matheus JOB#: [id number] / [id number]
[2019-06-18 13:42] LABS: BARBITURATES NEG (NEG); BENZODIAZEPINES NEG (NEG); CANNABINOIDS NEG (NEG); COCAINE NEG (NEG); METHADONE NEG (NEG); OPIATES NEG (NEG); PHENCYCLIDINE NEG (NEG)
[2019-06-18 13:44] LABS: AMPHETAMINE/METHAMPHETAMINE NEG (NEG)
--- NOTE | 2019-06-18 14:04 | EKG ---
[address] [address] Test Date: 2019-06-18 Test Time: 06:07:12 Pat Name: SANJAY KIMBALL Department: Room: Gender: F Key Operator: : 1945 Requested By: JAKI HINSON Order Number: [id number] Reading MD: Measurements Intervals [place] Rate: 81 P: 22 [place]: 154 QRS: -24 QRSD: 92 T: 91 QT: 370 QTc: 430 Interpretive Statements SINUS RHYTHM LEFTWARD AXIS T ABNORMALITY IN HIGH LATERAL LEADS ABNORMAL ECG RI6.01 No previous ECG available for comparison
[2019-06-18 14:37] VITALS: BP 101/45
[2019-06-18] MEDS: MEROPENEM 500 MG in IV NORMAL SALINE 50ML 50 ML IV SCH ×2 (15:53→21:30)
[2019-06-18] MEDS: IV NORMAL SALINE 1,000ML 1,000 ML IV SCH ×2 (15:54→20:00)
[2019-06-18 19:46] VITALS: BP 99/46
[2019-06-18 23:19] VITALS: BP 100/39
[2019-06-19] MEDS: OLANZapine 2.5 MG TABLET PO PRN ×2 (02:03→23:32)
[2019-06-19 03:22] VITALS: BP_SYST 114; BP_SYST 147; BP_DIAS 48; BP_DIAS 86
[2019-06-19] MEDS: IPRATRPIUM/ALBUTEROL 0.5/2.5MG 3 ML NEBU. NEB SCH ×4 (04:49→20:12)
[2019-06-19 05:20] VITALS: BP 113/53
[2019-06-19] MEDS: IV NORMAL SALINE 1,000ML 1,000 ML IV SCH ×2 (06:32→13:21)
[2019-06-19] MEDS: MEROPENEM 500 MG in IV NORMAL SALINE 50ML 50 ML IV SCH ×3 (06:32→21:04)
[2019-06-19] MEDS ORDERED: ACETAMINOPHEN 325 MG TABLET PO ONE (06:37)
[2019-06-19] MEDS: ACETAMINOPHEN 325 MG TABLET PO PRN (07:01)
[2019-06-19 07:49] LABS: HEMATOCRIT 32.2 % (36.0-47.0); HEMOGLOBIN 11.1 g/dL (12.0-15.5); RED BLOOD COUNT 3.24 x10^6/uL (3.50-5.40); RED CELL DISTRIBUTION WIDTH 12.8 % (11.5-14.5)
[2019-06-19 08:08] LABS: ALBUMIN 2.7 g/dL (3.4-5.0); ALBUMIN/GLOBULIN RATIO 0.9 (1.0-1.7); C REACTIVE PROTEIN 95.7 mg/L (0-3.3); CALCIUM 7.7 mg/dL (8.5-10.1); CREATININE 0.9 mg/dL (0.6-1.0); POTASSIUM 3.5 mmol/L (3.5-5.1); TOTAL BILIRUBIN 1.2 mg/dL (0.2-1.0); TOTAL PROTEIN 5.8 g/dL (6.4-8.2)
[2019-06-19] MEDS: levoFLOXacin 500 MG TABLET PO SCH (09:15)
[2019-06-19] MEDS: NICOTINE 21MG PATCH. TD SCH (09:16)
[2019-06-19] MEDS: LACTOBACILLUS RHAMNOSUS GG 1 CAPSULE. PO SCH ×2 (09:16→21:03)
[2019-06-19 10:53] VITALS: BP 95/52
--- NOTE | 2019-06-19 14:26 | RAD ---
EXAM: CHEST 1 VIEW History: Shortness of breath COMPARISON: 06/18/2019 TECHNIQUE: Single portable radiograph of the chest FINDINGS: Mild cardiomegaly unchanged. Mild prominent bilateral interstitial lung markings. The costophrenic sulci are clear and well demarcated. IMPRESSION: Mild prominent bilateral interstitial lung markings likely mild congestive changes. Electronically signed by: Peter Breen MD (06/19/2019 2:22 PM) [facility]
[2019-06-19 15:00] VITALS: BP 119/49
[2019-06-19] MEDS: ARIPiprazole 15 MG TABLET PO SCH (15:10)
[2019-06-19] MEDS: methylPREDNISolone SOD SUCC PF 40 MG/ML VIAL. IV SCH ×2 (15:11→21:04)
[2019-06-19] MEDS ORDERED: VANCOMYCIN 1.5 GM in IV NORMAL SALINE 500ML 500 ML IV ONE (16:00)
[2019-06-19 19:41] VITALS: BP 122/53
[2019-06-19] MEDS: BUDESONIDE 0.5 MG/2 ML NEBU NEB SCH (20:12)
[2019-06-19] MEDS: MONTELUKAST 10 MG TABLET. PO SCH (21:03)
[2019-06-19] MEDS: DIVALPROEX ER 500 MG TAB.ER.24H PO SCH (21:03)
[2019-06-19] MEDS: traZODone 50 MG TABLET. PO SCH (21:03)
[2019-06-19 23:29] VITALS: BP 106/52
[2019-06-20 03:11] VITALS: BP_SYST 105; BP_SYST 106; BP_SYST 97; BP_DIAS 52; BP_DIAS 54
[2019-06-20 05:05] VITALS: BP 114/55
[2019-06-20] MEDS: IPRATRPIUM/ALBUTEROL 0.5/2.5MG 3 ML NEBU. NEB SCH ×4 (05:19→21:39)
[2019-06-20] MEDS: MEROPENEM 500 MG in IV NORMAL SALINE 50ML 50 ML IV SCH ×2 (05:32→14:28)
[2019-06-20] MEDS: methylPREDNISolone SOD SUCC PF 40 MG/ML VIAL. IV SCH ×3 (05:32→21:21)
[2019-06-20 06:47] LABS: HEMATOCRIT 34.4 % (36.0-47.0); HEMOGLOBIN 11.7 g/dL (12.0-15.5); RED BLOOD COUNT 3.45 x10^6/uL (3.50-5.40); RED CELL DISTRIBUTION WIDTH 12.6 % (11.5-14.5)
[2019-06-20 06:49] LABS: CALCIUM 7.9 mg/dL (8.5-10.1); CREATININE 0.8 mg/dL (0.6-1.0); GFR 69.9; POTASSIUM 4.1 mmol/L (3.5-5.1)
[2019-06-20] MEDS: LACTOBACILLUS RHAMNOSUS GG 1 CAPSULE. PO SCH ×2 (08:42→20:21)
[2019-06-20] MEDS: BUDESONIDE 0.5 MG/2 ML NEBU NEB SCH ×2 (08:42→21:39)
[2019-06-20] MEDS: levoFLOXacin 500 MG TABLET PO SCH (08:42)
[2019-06-20] MEDS: ARIPiprazole 15 MG TABLET PO SCH (08:42)
[2019-06-20] MEDS: NICOTINE 21MG PATCH. TD SCH (08:42)
[2019-06-20 11:04] VITALS: BP 126/57
[2019-06-20 14:26] VITALS: BP 134/70
[2019-06-20] MEDS: ACETAMINOPHEN 325 MG TABLET PO PRN ×2 (14:51→20:21)
[2019-06-20 15:52] LABS: VANC TR 6.2 mcg/mL (10.0-20.0)
[2019-06-20] MEDS ORDERED: VANCOMYCIN 1.5 GM in IV NORMAL SALINE 500ML 500 ML IV SCH (16:30)
[2019-06-20 19:43] VITALS: BP 118/75
[2019-06-20] MEDS: MONTELUKAST 10 MG TABLET. PO SCH (20:21)
[2019-06-20] MEDS: DIVALPROEX ER 500 MG TAB.ER.24H PO SCH (20:21)
[2019-06-20] MEDS: traZODone 50 MG TABLET. PO SCH (20:22)
--- NOTE | 2019-06-20 22:18 | PN ---
DATE: SUBJECTIVE: The patient is resting slightly propped up in bed, definitely much improved. Cough is much less now, but she continued to have chest tightness and wheezing. PHYSICAL EXAMINATION: GENERAL: When I examined her, she looked flushed, but there is no pallor, jaundice, cyanosis or thyromegaly. No jugular venous distention. No lower limb edema. VITAL SIGNS: Her heart rate was 60, blood pressure was 126/57, temperature was 97.4, respiratory rate was 18 and oxygen saturation was 92% on room air. HEAD, EYES, EARS, NOSE AND THROAT: Showed normocephalic, atraumatic. NECK: Supple. CARDIAC: Normal first and second heart sounds. No gallop or murmur. CHEST: Shows central trachea, equal bilateral chest expansion air entry with second heart sounds and prolonged and expiratory wheezing and refusing both sides. I could not appreciate any crepitation. ABDOMEN: Distended, soft, nontender. NEUROLOGIC: She was awake, alert, responding appropriately. All cranial nerves intact. She moves extremities without difficulty. She is able to ambulate with a walker. Her intake over the last 24 hours was 2100, output was 1300 as of this morning. LABORATORY DATA: Her serum sodium was 142, potassium 4.1, chloride 107, bicarbonate 26, anion gap of 9, BUN 13, creatinine 0.8, estimated GFR was 70 mL per minute. Her blood sugar was 119 and calcium was 7.9. White cell count was 5000, hemoglobin 11.7, hematocrit 34, MCV 100 and platelet count of 115,000. Her Influenza A and B negative and hepatitis serology was negative. ASSESSMENT: 1. Altered mental status has resolved. Apparently, she was started on lorazepam 2 mg only recently that might obviously have contributed to her altered mental status. We did actually discontinue her gabapentin, trazodone, aripiprazole and lorazepam. 2. Dehydration and acute kidney injury, resolved. Her BUN came down from 21 to 13 and creatinine came down from 1.2-0.8. 3. Likely community-acquired pneumonia for which I started her on Levaquin and she did actually very well. She is afebrile with normal white cell count. 4. Chronic obstructive pulmonary disease exacerbation for which she continues to be on steroids as well as bronchodilator. PLAN: My plan is to continue with all these medications and we will evaluate her again tomorrow. If her wheezing improves, we might cut down her steroids and eventually discharge home. NAM MATTHEW MD DR: ROSEMARY/matheus JOB#: [id number] / [id number]
[2019-06-20 23:29] VITALS: BP 122/58
[2019-06-21] MEDS: IPRATRPIUM/ALBUTEROL 0.5/2.5MG 3 ML NEBU. NEB SCH ×2 (04:51→09:38)
[2019-06-21 05:43] VITALS: BP 128/57
[2019-06-21] MEDS: methylPREDNISolone SOD SUCC PF 40 MG/ML VIAL. IV SCH ×2 (05:45→13:17)
[2019-06-21 06:28] LABS: HEMATOCRIT 34.9 % (36.0-47.0); HEMOGLOBIN 11.9 g/dL (12.0-15.5); RED BLOOD COUNT 3.52 x10^6/uL (3.50-5.40); RED CELL DISTRIBUTION WIDTH 12.7 % (11.5-14.5); WHITE BLOOD COUNT 11.1 x10^3/uL (4.0-11.0)
[2019-06-21 06:31] LABS: CALCIUM 8.4 mg/dL (8.5-10.1); CREATININE 0.9 mg/dL (0.6-1.0); POTASSIUM 4.1 mmol/L (3.5-5.1)
[2019-06-21] MEDS: ARIPiprazole 15 MG TABLET PO SCH (07:53)
[2019-06-21] MEDS: levoFLOXacin 500 MG TABLET PO SCH (07:53)
[2019-06-21] MEDS: LACTOBACILLUS RHAMNOSUS GG 1 CAPSULE. PO SCH (07:53)
[2019-06-21] MEDS: NICOTINE 21MG PATCH. TD SCH (07:53)
[2019-06-21] MEDS: BUDESONIDE 0.5 MG/2 ML NEBU NEB SCH (09:34)
[2019-06-21 10:20] VITALS: BP 131/72
--- NOTE | 2019-06-21 14:45 | DS ---
DATE OF DISCHARGE: 06/18/2019 HOSPITAL COURSE: The patient is a 73-year-old female patient, who was admitted initially with altered mental status, felt to be secondary to her starting on Ativan 2 mg at bedtime. She was also noted to be febrile and we did extensive investigation including checking her influenza A and B twice. She has had recurrent bouts of cough with yellowish sputum and severe wheezing, started on IV antibiotic, IV Solu-Medrol, nebulized albuterol and Atrovent and she did actually very well. Her cough and shortness of breath and wheezing have largely subsided and she is now more awake, alert, back to her baseline, she is able to ambulate with a walker, without assistance, and she remained hemodynamically stable, afebrile with a normal white cell count, a decision was made to discharge her home. PHYSICAL EXAMINATION: GENERAL: When I examined her today, she looked well and was clearly in no apparent respiratory distress, slightly pale, but no jaundice, cyanosis or thyromegaly. No jugular venous distension. No lower limb edema. VITAL SIGNS: Her heart rate was 54, blood pressure was 131/72, temperature was 98.1, respiratory rate 20, and oxygen saturation was 94%. HEAD, EYES, EARS, NOSE AND THROAT: Normocephalic, atraumatic. NECK: Supple. HEART: Showed normal first and second heart sounds. No gallop or murmur. CHEST: Clear to auscultation. No crepitation or rhonchi. ABDOMEN: Distended, soft, nontender. NEUROLOGIC: She is awake, alert, responding appropriately. She is somewhat hard of hearing, otherwise all cranial nerves intact. She moves extremities without difficulty. She ambulates with a walker. Her intake over the last 24 hours was 900, output was 1325. LABORATORY DATA: As of this morning, her white cell count was 11,000, hemoglobin 12, hematocrit 35, MCV 99 and platelet count of 129,000. Her chemistry showed serum sodium of 142, potassium 4.1, chloride 106, bicarbonate 24, anion gap of 12, BUN 23, creatinine 0.9, estimated GFR was 61 mL per minute. Her glucose was 254, calcium was 8.4. Her tox screen was negative. Urinalysis was unremarkable. DISCHARGE MEDICATIONS: She was discharged home to continue on Levaquin 500 mg once a day for 7 more days and tapering course of steroids, should continue on aripiprazole 15 mg daily, aspirin enteric-coated 81 mg once a day, divalproex sodium for Depakote 500 mg at bedtime, Trelegy Ellipta 1 inhalation once a day, furosemide 20 mg once a day, gabapentin 400 mg at bedtime, lisinopril 2.5 mg once a day. I have actually discontinued her lorazepam. She should continue also on her nicotine, potassium 10 mEq once a day, sitagliptin phosphate for Januvia 100 mg once a day, trazodone 50 mg at bedtime. FINAL DISCHARGE DIAGNOSES: 1. Altered mental status, multifactorial, resolved. 2. Dehydration, acute kidney injury, resolved. Her BUN came down from 21 to 13 and creatinine from 1.3 to 0.8. 3. Community-acquired pneumonia for which she is started on Levaquin. 4. Chronic obstructive pulmonary disease exacerbation. NAM MATTHEW MD DR: ROSEMARY/matheus JOB#: [id number] / [id number]
== END 2019-06-21 15:50 | disposition home or self-care (01) | DRG 91 ==
LOC: ER 04:15 → ICU 06:00 → ER 06:58 → 1 SOUTH 06-20 13:25
PROVIDERS: ADMIT Internal Medicine; ATTEND Internal Medicine
DX: G92 Toxic encephalopathy (principal); J18.9 Pneumonia, unspecified organism; N17.9 Acute kidney failure, unspecified; J44.1 Chronic obstructive pulmonary disease with (acute) exacerbation; J44.0 Chronic obstructive pulmonary disease with (acute) lower respiratory infection; E86.0 Dehydration; G89.29 Other chronic pain; M19.90 Unspecified osteoarthritis, unspecified site; F41.9 Anxiety disorder, unspecified; E78.00 Pure hypercholesterolemia, unspecified; F31.9 Bipolar disorder, unspecified; T42.4X5A Adverse effect of benzodiazepines, initial encounter; I10 Essential (primary) hypertension; E11.9 Type 2 diabetes mellitus without complications; F17.210 Nicotine dependence, cigarettes, uncomplicated; Z88.5 Allergy status to narcotic agent; Z88.0 Allergy status to penicillin; Z88.8 Allergy status to other drugs, medicaments and biological substances
CPT/HCPCS: 36415; 51702; 70450; 71045; 72125; 72131; 72192; 80048; 80053; 80076; 80164; 80202; 80307; 81001; 82550; 82947; 83605; 83735; 83880; 84145; 84484; 85025; 85027; 85610; 85651; 85730; 86140; 86705; 86709; 86803; 87040; 87340; 87804; 93005; 94640; 96361; 96365; J1956; J2185; J2920; J3370; J7040; J7120; J7620; J7626; 99285-25; J7030

== ENCOUNTER 2019-06-27 13:27 | Emergency (ER) | payer MEDICAID, MEDICARE ==
[~2019-06-27] VITALS: Ht 157.5 cm; Wt 92.9 kg
[2019-06-27 13:27] VITALS: BP 121/74
[~2019-06-27 13:27] MED LIST changes: +ARIP15TA36 PO; +DIVA500T4 PO; +FLUT1BLS3 IH; +GABA600T7 PO; +LORA-254 PO
[2019-06-27] MEDS ORDERED: IPRATRPIUM/ALBUTEROL 0.5/2.5MG 3 ML NEBU. ONE (13:58)
[2019-06-27] MEDS ORDERED: IPRATRPIUM/ALBUTEROL 0.5/2.5MG 3 ML NEBU. NEB ONE (14:00)
[2019-06-27] MEDS ORDERED: LEVO500T59 PO (14:49)
--- NOTE | 2019-06-27 14:50 | PHYS DOC ---
Past History Past Medical History: Anxiety, Arthritis, Bipolar, COPD, Diabetes, High Cholesterol, Hypertension, Pneumonia Past Surgical History: Cholecystectomy, Other Smoking: Cigarettes Alcohol Use: None Drug Use: None Adult General Chief Complaint Chief Complaint: NAUSEA/VOMITING/DIARRHEA HPI HPI Patient is a 73-year-old female who presents with complaint of cough and congestion along with fever for the last few days. Patient was seen at [facility] by nurse practitioner and was told to come to the emergency room to be evaluated for pneumonia. Patient denies any shortness of breath. She does indicate the cough is been productive of yellow sputum.[] Review of Systems Review of Systems Constitutional: Denies fever or chills [] HENT: Positive congestion without sore throat [] Respiratory: Positive productive cough without shortness of breath [] Cardiovascular: No additional information not addressed in HPI [] Integument: Denies rash or skin lesions [] Neurologic: Denies headache, focal weakness or sensory changes [] Current Medications Current Medications Current Medications Medications (Trade) Dose Ordered Sig/Zena Start Time Stop Time Status Last Admin Dose Admin Albuterol/ Ipratropium (Duoneb) 3 ml STK-MED ONCE 06/27/19 13:58 06/27/19 14:01 DC Allergies Allergies Allergies Coded Allergies Type Severity Reaction Last Updated Verified Penicillins Allergy Intermediate 02/04/19 Yes procaine Allergy Intermediate 02/04/19 Yes quetiapine Allergy Intermediate 02/04/19 Yes morphine Allergy Mild Unknown 01/26/19 Yes Physical Exam Physical Exam Constitutional: Well developed, well nourished, no acute distress, non-toxic appearance. [] Cardiovascular: Regular rate and rhythm[] Lungs & Thorax: Bilateral breath sounds clear to auscultation [] Skin: Warm, dry, no erythema, no rash. [] Extremities: No tenderness, no cyanosis, no clubbing, ROM intact. [] Neurologic: Alert and oriented X 3, no focal deficits noted. [] Current Patient Data Vital Signs Vital Signs Date Time Temp Pulse Resp B/P (MAP) Pulse Ox O2 Delivery O2 Flow Rate FiO2 06/27/19 14:04 95 Room Air 06/27/19 13:27 99.6 115 20 EKG EKG [] Radiology/Procedures Radiology/Procedures [] Impressions: PROCEDURE: CHEST PA & LATERAL CHEST PA LATERAL History: Cough Comparison: June 19, 2019 Findings: 2 views of the chest are submitted. There is no infiltrate, pneumothorax, or effusion. Pericardial cardiac silhouette is stable. Impression: 1. There is no radiographic evidence of acute cardiopulmonary disease. Electronically signed by: Terrance Pope MD (06/27/2019 2:48 PM) [facility] Course & Med Decision Making Course & Med Decision Making Pertinent Labs and Imaging studies reviewed. (See chart for details) [] Dragon Disclaimer Dragon Disclaimer This electronic medical record was generated, in whole or in part, using a voice recognition dictation system. Departure Departure: Impression: Primary Impression: Acute bronchitis Disposition: HOME, SELF-CARE Condition: STABLE Referrals: DAINA ROBERTS (PCP) Patient Instructions: Acute Bronchitis Scripts Levofloxacin (LEVAQUIN) 500 Mg Tablet 1 TAB PO DAILY for infection for 10 Days, #10 TAB 0 Refills Prov: ANA HADDAD Jr. DO 06/27/19 Problem Qualifiers Primary Impression: Acute bronchitis Bronchitis organism: unspecified organism Qualified Codes: J20.9 - Acute bronchitis, unspecified ANA HADDAD Jr. DO Jun 27, 2019 14:50
[2019-06-27] MEDS ORDERED: levoFLOXacin 500 MG TABLET PO ONE (15:00)
== END 2019-06-27 15:02 | disposition home or self-care (01) ==
LOC: ER 13:27
DX: J20.9 Acute bronchitis, unspecified (principal); F41.9 Anxiety disorder, unspecified; M19.90 Unspecified osteoarthritis, unspecified site; F31.9 Bipolar disorder, unspecified; J44.9 Chronic obstructive pulmonary disease, unspecified; E11.9 Type 2 diabetes mellitus without complications; E78.00 Pure hypercholesterolemia, unspecified; I10 Essential (primary) hypertension; F17.210 Nicotine dependence, cigarettes, uncomplicated; Z88.0 Allergy status to penicillin; Z88.4 Allergy status to anesthetic agent; Z88.5 Allergy status to narcotic agent; Z88.8 Allergy status to other drugs, medicaments and biological substances
CPT/HCPCS: 71046; 94640; 99284; J7620

== ENCOUNTER 2019-07-08 09:48 | Emergency (ER) | payer MEDICARE ==
[~2019-07-08] VITALS: Ht 157.5 cm; Wt 92.9 kg
[~2019-07-08 09:48] MED LIST changes: +LEVO500T59 PO
[2019-07-08] MEDS ORDERED: IV NORMAL SALINE 1,000ML 1,000 ML IV ONE (10:00)
[2019-07-08] MEDS ORDERED: IPRATRPIUM/ALBUTEROL 0.5/2.5MG 3 ML NEBU. NEB ONE (10:15)
[2019-07-08] MEDS ORDERED: methylPREDNISolone SOD SUCC PF 125 MG/2 ML VIAL. IV ONE (10:15)
--- NOTE | 2019-07-08 10:15 | PHYS DOC ---
Past History Past Medical History: Anxiety, Arthritis, Bipolar, COPD, Diabetes, High Cholesterol, Hypertension, Pneumonia Past Surgical History: Cholecystectomy, Other Smoking: Cigarettes Alcohol Use: None Drug Use: None Adult General Chief Complaint Chief Complaint: MECHANICAL FALL HPI HPI 73-year-old female presents after fall at home. The patient states that she actually slid down her bed to the floor. She was unable to get up and her daughter was unable to pick her up. She was between the bed and the wall. The patient denies hitting her head or loss of consciousness. He was feeling lightheaded and off balance just prior to this. She tells me she has been feeling this way frequently lately every time she stands up. She has a history of COPD. She takes daily breathing treatments. She has had a cough that is worse at night lately. She denies significant sputum. Denies chest pain or diaphoresis. She is not complaining of injury or pain. Review of Systems Review of Systems Constitutional: Denies fever or chills [] Eyes: Denies change in visual acuity, redness, or eye pain [] HENT: Denies nasal congestion or sore throat [] Respiratory: Denies cough or shortness of breath [] Cardiovascular: No additional information not addressed in HPI [] GI: Denies abdominal pain, nausea, vomiting, bloody stools or diarrhea [] : Denies dysuria or hematuria [] Musculoskeletal: Frequent falls without injury. Denies back pain or joint pain [] Integument: Denies rash or skin lesions [] Neurologic: Dizziness. Denies headache, focal weakness or sensory changes [] Endocrine: Denies polyuria or polydipsia [] All other systems were reviewed and found to be within normal limits, except as documented in this note. Current Medications Current Medications Current Medications Medications (Trade) Dose Ordered Sig/Zena Start Time Stop Time Status Last Admin Dose Admin Sodium Chloride 1,000 ml @ 1,000 mls/hr 1X ONCE 07/08/19 10:00 07/08/19 10:59 Allergies Allergies Allergies Coded Allergies Type Severity Reaction Last Updated Verified Penicillins Allergy Intermediate 02/04/19 Yes procaine Allergy Intermediate 02/04/19 Yes quetiapine Allergy Intermediate 02/04/19 Yes morphine Allergy Mild Unknown 01/26/19 Yes Physical Exam Physical Exam Constitutional: Well developed, obese, well nourished, no acute distress, non- toxic appearance. [] HENT: Normocephalic, atraumatic, bilateral external ears normal, oropharynx moist, no oral exudates, nose normal. [] Eyes: PERRLA, EOMI, conjunctiva normal, no discharge. [] Neck: Normal range of motion, no tenderness, supple, no stridor. [] Cardiovascular:Heart rate regular rhythm, no murmur [] Lungs & Thorax: Mild expiratory wheeze at the left upper lung.[] Abdomen: Bowel sounds normal, soft, no tenderness, no masses, no pulsatile masses. [] Skin: Warm, dry, no erythema, no rash. [] Back: No tenderness, no CVA tenderness. [] Extremities: No tenderness, no cyanosis, no clubbing, ROM intact, no edema. [] Neurologic: Alert and oriented X 3, normal motor function, normal sensory function, no focal deficits noted. [] Psychologic: Affect normal, judgement normal, mood normal. [] EKG EKG Sinus rhythm, rate 64, normal axis, no ST elevation or depression.[] Radiology/Procedures Radiology/Procedures [] Impressions: Single AP view of the chest. Comparison: 06/27/2019. Indication: Fall Findings: Stable left degenerative shoulder change. The heart is enlarged but stable. There is no pneumothorax or effusion. No air space or interstitial disease. Impression: 1. No acute cardiopulmonary process. Electronically signed by: Afshin Keith MD (07/08/2019 10:47 AM) [facility] DICTATED AND SIGNED BY: AFSHIN KEITH MD DATE: 07/08/19 1047 CC: VIC SMALLWOOD DO; DAINA ROBERTS ~ CT HEAD WO CONTRAST Date: 07/08/2019 9:52 AM Clinical Indication: Fall, pain Comparison: 06/18/2019. Technique: 5 mm axial tomographic images were obtained of the head without contrast. These were viewed on brain and bone windows. One or more of the following dose reduction techniques were utilized: Automated exposure control (AEC), Adjustment of mA and/or kV according to patient size, Use of iterative reconstruction technique such as ASiR, CT scan done according to ALARA and image gently/image wisely Findings: Mild generalized cerebral and cerebellar volume loss. Mild nonspecific periventricular hypoattenuation, most commonly seen with chronic small vessel ischemic disease. Calcified atherosclerosis of the bilateral cavernous and paraclinoid internal carotid arteries and intracranial vertebral arteries. No intra- or extra-axial mass or fluid collection. No acute hemorrhage. The ventricles are normal in size, shape, and morphology. The raymond-white matter junction is normal. The subarachnoid cisterns are patent. The visualized paranasal sinuses are normal. The visualized portions of the orbits and globes are normal. The mastoid air cells are clear. The registry rn topogram shows no lytic lesion or fracture. Impression: No acute intracranial process. Mild cerebral volume loss. Mild chronic small vessel ischemic disease. Electronically signed by: Jonnathan Sawyer MD (07/08/2019 10:42 AM) [facility] DICTATED AND SIGNED BY: JONNATHAN SAWYER MD DATE: 07/08/191041 CC: VIC SMALLWOOD DO; DAINA ROBERTS ~ Course & Med Decision Making Course & Med Decision Making Pertinent Labs and Imaging studies reviewed. (See chart for details) I will give the patient liter normal saline, 125 of Solu-Medrol, DuoNeb treatment. Workup is pending. The patient's breathing improved. I do not believe she will need further steroids for treatment. She will continue breathing treatments at home. The patient does have a vaginal yeast infection. I will treat her with Diflucan 150 mg in the ED. The rest for workup was negative. The patient and her daughter feel comfortable with taking the patient home. She is stable for discharge at this time. [] Dragon Disclaimer Dragon Disclaimer This electronic medical record was generated, in whole or in part, using a voice recognition dictation system. Departure Departure: Impression: Primary Impression: Dehydration Additional Impression: Vaginal yeast infection Disposition: HOME, SELF-CARE Condition: STABLE Referrals: DAINA ROBERTS (PCP) Problem Qualifiers VIC SMALLWOOD DO Jul 08, 2019 10:14
[2019-07-08 10:22] LABS: BASO % 1 % (0-3); EOS # 0.1 x10^3/uL (0.0-0.7); EOS % 2 % (0-3); HEMATOCRIT 35.5 % (36.0-47.0); LYMPH # 1.6 x10^3/uL (1.0-4.8); LYMPH % 27 % (24-48); MEAN CORPUSCULAR HEMOGLOBIN 34 pg (25-35); MEAN CORPUSCULAR HGB CONC 34 g/dL (31-37); MEAN CORPUSCULAR VOLUME 101 fL (79-100); MONO # 0.7 x10^3/uL (0.0-1.1); MONO % 11 % (0-9); NEUT # 3.6 x10^3uL (1.8-7.7); NEUT % 60 % (31-73); PLATELET COUNT 134 x10^3/uL (140-400); RED BLOOD COUNT 3.51 x10^6/uL (3.50-5.40); RED CELL DISTRIBUTION WIDTH 12.9 % (11.5-14.5)
[2019-07-08 10:31] LABS: CALCIUM 8.6 mg/dL (8.5-10.1); CREATININE 0.9 mg/dL (0.6-1.0); POTASSIUM 4.1 mmol/L (3.5-5.1)
[2019-07-08 10:43] LABS: ALBUMIN 3.1 g/dL (3.4-5.0); ALBUMIN/GLOBULIN RATIO 0.9 (1.0-1.7); TOTAL BILIRUBIN 0.7 mg/dL (0.2-1.0); TOTAL PROTEIN 6.4 g/dL (6.4-8.2)
--- NOTE | 2019-07-08 10:45 | RAD ---
CT HEAD WO CONTRAST Date: 07/08/2019 9:52 AM Clinical Indication: Fall, pain Comparison: 06/18/2019. Technique: 5 mm axial tomographic images were obtained of the head without contrast. These were viewed on brain and bone windows. One or more of the following dose reduction techniques were utilized: Automated exposure control (AEC), Adjustment of mA and/or kV according to patient size, Use of iterative reconstruction technique such as ASiR, CT scan done according to ALARA and image gently/image wisely Findings: Mild generalized cerebral and cerebellar volume loss. Mild nonspecific periventricular hypoattenuation, most commonly seen with chronic small vessel ischemic disease. Calcified atherosclerosis of the bilateral cavernous and paraclinoid internal carotid arteries and intracranial vertebral arteries. No intra- or extra-axial mass or fluid collection. No acute hemorrhage. The ventricles are normal in size, shape, and morphology. The raymond-white matter junction is normal. The subarachnoid cisterns are patent. The visualized paranasal sinuses are normal. The visualized portions of the orbits and globes are normal. The mastoid air cells are clear. The lineman apprentice topogram shows no lytic lesion or fracture. Impression: No acute intracranial process. Mild cerebral volume loss. Mild chronic small vessel ischemic disease. Electronically signed by: Terrance Sawyer MD (07/08/2019 10:42 AM) [facility]
--- NOTE | 2019-07-08 10:50 | RAD ---
Single AP view of the chest. Comparison: 06/27/2019. Indication: Fall Findings: Stable left degenerative shoulder change. The heart is enlarged but stable. There is no pneumothorax or effusion. No air space or interstitial disease. Impression: 1. No acute cardiopulmonary process. Electronically signed by: Afshin Keith MD (07/08/2019 10:47 AM) [facility]
[2019-07-08 11:25] LABS: BILIRUBIN,URINE NEG (NEG); CLARITY,URINE HAZY; COLOR,URINE YELLOW; GLUCOSE,URINE NEG (NEG); UROBILINOGEN,URINE 0.2 mg/dL (0.2 mg/dL)
[2019-07-08 11:26] LABS: BACTERIA,URINE FEW /HPF (0-FEW); NITRITE,URINE NEG (NEG); SQUAMOUS EPITHELIAL CELL,UR MANY /LPF; YEAST,URINE PRESENT /HPF
[2019-07-08] MEDS ORDERED: FLUCONAZOLE 100 MG TABLET. PO ONE (11:45)
[2019-07-08 12:34] VITALS: BP 124/63
--- NOTE | 2019-07-08 13:37 | EKG ---
[address] [address] Test Date: 2019-07-08 Test Time: 10:14:01 Pat Name: SANJAY KIMBALL Department: Room: Gender: F Director Of Accreditation: : 1945 Requested By: VIC SMALLWOOD Order Number: [id number] Reading MD: Measurements Intervals [place] Rate: 64 P: 12 [place]: 168 QRS: -15 QRSD: 94 T: 28 QT: 368 QTc: 383 Interpretive Statements SINUS RHYTHM LEFTWARD AXIS R-S TRANSITION ZONE IN V LEADS DISPLACED TO THE LEFT NO SPECIFIC ECG ABNORMALITIES RI6.01 No previous ECG available for comparison
[2019-07-12] MEDS ORDERED: CLIN300C8 PO (12:47)
== END 2019-07-08 13:14 | disposition home or self-care (01) ==
LOC: ER 09:48
DX: E86.0 Dehydration (principal); B37.3 Candidiasis of vulva and vagina; F41.9 Anxiety disorder, unspecified; M19.90 Unspecified osteoarthritis, unspecified site; F31.9 Bipolar disorder, unspecified; J44.9 Chronic obstructive pulmonary disease, unspecified; E11.9 Type 2 diabetes mellitus without complications; E78.00 Pure hypercholesterolemia, unspecified; I10 Essential (primary) hypertension; F17.210 Nicotine dependence, cigarettes, uncomplicated; Z88.0 Allergy status to penicillin; Z88.4 Allergy status to anesthetic agent; Z88.5 Allergy status to narcotic agent; Z88.8 Allergy status to other drugs, medicaments and biological substances; W06.XXXA Fall from bed, initial encounter; Y93.89 Activity, other specified; Y92.098 Other place in other non-institutional residence as the place of occurrence of the external cause; Y99.8 Other external cause status
CPT/HCPCS: 36415; 70450; 71045; 80053; 81001; 83880; 84484; 85025; 93005; 94640; 96361; 96374; 99285; J2930; J7620; J7030

== ENCOUNTER 2019-07-11 20:33 | Observation (INO) | payer MEDICARE ==
[~2019-07-11] VITALS: Ht 167.6 cm; Wt 91.8 kg
--- NOTE | 2019-07-11 20:38 | PHYS DOC ---
Past History Past Medical History: Anxiety, Arthritis, Bipolar, Bronchitis, CHF, COPD, Dementia, Diabetes, High Cholesterol, Hypertension, Pneumonia Past Surgical History: Cholecystectomy, Other Smoking: Cigarettes Alcohol Use: None Drug Use: None Adult General Chief Complaint Chief Complaint: ".. Her sugars were to high.. 400's.. and leg are swollen... this never happen before..." ".. I just notice her leg were so swollen tonight..... she been wearing long pants.. and I had not noticed they were this swollen.. especially the one on the Lt. ..." ( Daughter) [facility] Patient is a 73 year old FEMALE who presents with above hx and complaints of hyperglycemia and leg edema. Patient reportedly had initial leukocytosis in excess of 400 at home. Daughter states that leg edema and elevated glucose levels are recent development. Patient has significant medical history for hypertension, diabetes, COPD, elevated lipids, bipolar, depression, dementia, CHF, recent episode of pneumonia and deconditioning. No recent travel. No history immunosuppression. Patient reportedly has a allergy to penicillin. Patient lives with her daughter. Patient does continue to smoke. She has in excess of of [id number]. Pt. follows with Dr. Shaw. Review of Systems Review of Systems Constitutional: Denies fever or chills [] Eyes: Denies change in visual acuity, redness, or eye pain [] HENT: Denies nasal congestion or sore throat [] Respiratory: Denies cough or shortness of breath [] Cardiovascular: No additional information not addressed in [facility] [] GI: Denies abdominal pain, nausea, vomiting, bloody stools or diarrhea [] : Denies dysuria or hematuria [] Musculoskeletal: Denies back pain or joint pain . She has complaints of leg swelling Integument: Denies rash or skin lesions [] Neurologic: Denies headache, focal weakness or sensory changes [] Endocrine: Denies polyuria or polydipsia [] All other systems were reviewed and found to be within normal limits, except as documented in this note. Family History Family History Noncontributory presentation Current Medications Current Medications See nursing for home meds Allergies Allergies Allergies Coded Allergies Type Severity Reaction Last Updated Verified Penicillins Allergy Intermediate 02/04/19 Yes procaine Allergy Intermediate 02/04/19 Yes quetiapine Allergy Intermediate 02/04/19 Yes morphine Allergy Mild Unknown 01/26/19 Yes Physical Exam Physical Exam Constitutional: no acute distress, non-toxic appearance. [] HENT: Normocephalic, atraumatic, bilateral external ears normal, oropharynx moist, no oral exudates, nose normal. [] Eyes: PERRLA, EOMI, conjunctiva normal, no discharge. [] Neck: Normal range of motion, no tenderness, supple, no stridor. [] Cardiovascular:Heart rate regular rhythm, no murmur []PMI to the left Lungs & Thorax: Bilateral breath sounds scattered wheezes and some basilar crackles on auscultation [] Abdomen: Bowel sounds normal, soft, no tenderness, no masses, no pulsatile masses. [] Obese. Old surgical scar Skin: Warm, dry, . Some venous stasis and legs Back: No tenderness, no CVA tenderness. [] Extremities: Lower leg tenderness, no cyanosis, no clubbing, ROM intact, bilateral lower leg edema. [] Neurologic: Alert and oriented X 3, moves extremities on request does have distal sensory,, no gross focal deficits noted. [] Psychologic: Affect anxious, obvious memory deficits, mood normal. [] EKG EKG My interpretation EKG shows a sinus rhythm at 77 bpm. Leftward axis. No findings of acute STEMI of contralateral changes.[] Radiology/Procedures Radiology/Procedures [][place] [address] IMAGING REPORT Signed PATIENT: SANJAY KIMBALL ACCOUNT: [id number] : 1945 LOCATION: ER AGE: 73 SEX: F EXAM STATUS: REG ER ORD. PHYSICIAN: JAKI HINSON MD REASON: leg edema,copd PROCEDURE: PORTABLE CHEST 1V PORTABLE CHEST 1V Clinical indications: Leg edema. COPD. COMPARISON: July 08, 2019. Findings: There has been interval clearing of the left lung base infiltrate. Small residual left-sided pleural effusion is still present. No acute infiltrate is seen on the right side. No pneumothorax is evident. The heart size, pulmonary vasculature, mediastinum and both daniel are stable. Impression: Interval clearing of left lung base infiltrate. Small residual left-sided pleural effusion is still present. Electronically signed by: Russ Nelson MD (07/11/2019 9:51 PM) [facility] DICTATED AND SIGNED BY: RUSS NELSON MD DATE: 07/11/192150 CC: JAKI HINSON MD; DAINA SHAW ~ Course & Med Decision Making Course & Med Decision Making Pertinent Labs and Imaging studies reviewed. (See chart for details) Pt. admitted Dr. Lazar- for further eval and tx. Impression: 1. DM - Gluc 160 2. Veinous Stasis 3. Cellulitis 4. Elevated D-dimer 0.93 5. Malnutrition 3.1 albumin 6. Hx. Dementia 7. Hx. COPD 8. Hx. Tobacco Use [] Dragon Disclaimer Dragon Disclaimer This electronic medical record was generated, in whole or in part, using a voice recognition dictation system. Departure Departure: Disposition: 01 HOME/RESIDENCE PRIOR TO ADM Condition: STABLE Referrals: DAINA SHAW (PCP) Dragon Disclaimer This chart was dictated in whole or in part using Voice Recognition software in a busy, high-work load, and often noisy Emergency Department environment. It may contain unintended and wholly unrecognized errors or omissions. JAKI HINSON MD Jul 11, 2019 20:38
[2019-07-11] MEDS ORDERED: ASPIRIN 81 MG TAB.CHEW PO ONE (20:45)
[2019-07-11 21:11] LABS: BASO # 0.1 x10^3/uL (0.0-0.2); BASO % 1 % (0-3); EOS # 0.1 x10^3/uL (0.0-0.7); EOS % 1 % (0-3); HEMATOCRIT 35.7 % (36.0-47.0); HEMOGLOBIN 12.3 g/dL (12.0-15.5); LYMPH # 2.1 x10^3/uL (1.0-4.8); LYMPH % 30 % (24-48); MEAN CORPUSCULAR HEMOGLOBIN 34 pg (25-35); MEAN CORPUSCULAR HGB CONC 34 g/dL (31-37); MEAN CORPUSCULAR VOLUME 99 fL (79-100); MONO # 0.7 x10^3/uL (0.0-1.1); MONO % 9 % (0-9); NEUT # 4.1 x10^3uL (1.8-7.7); NEUT % 58 % (31-73); PLATELET COUNT 151 x10^3/uL (140-400); WHITE BLOOD COUNT 7.1 x10^3/uL (4.0-11.0)
[2019-07-11 21:20] LABS: CALCIUM 8.3 mg/dL (8.5-10.1); CREATININE 0.9 mg/dL (0.6-1.0); POTASSIUM 3.9 mmol/L (3.5-5.1)
[2019-07-11 21:35] LABS: ALBUMIN 3.1 g/dL (3.4-5.0); DIRECT BILIRUBIN 0.2 mg/dL (0.0-0.2); MAGNESIUM 1.9 mg/dL (1.8-2.4); TOTAL BILIRUBIN 0.7 mg/dL (0.2-1.0); TOTAL PROTEIN 6.6 g/dL (6.4-8.2)
--- NOTE | 2019-07-11 21:54 | RAD ---
PORTABLE CHEST 1V Clinical indications: Leg edema. COPD. COMPARISON: July 08, 2019. Findings: There has been interval clearing of the left lung base infiltrate. Small residual left-sided pleural effusion is still present. No acute infiltrate is seen on the right side. No pneumothorax is evident. The heart size, pulmonary vasculature, mediastinum and both daniel are stable. Impression: Interval clearing of left lung base infiltrate. Small residual left-sided pleural effusion is still present. Electronically signed by: Michael Nelson MD (07/11/2019 9:51 PM) [facility]
[2019-07-11 21:55] LABS: BARBITURATES NEG (NEG); BENZODIAZEPINES NEG (NEG); CANNABINOIDS NEG (NEG); COCAINE NEG (NEG); METHADONE NEG (NEG); OPIATES NEG (NEG); PHENCYCLIDINE NEG (NEG)
[2019-07-11 22:00] LABS: BILIRUBIN,URINE NEG (NEG); CLARITY,URINE CLEAR; COLOR,URINE YELLOW; GLUCOSE,URINE NEG (NEG); NITRITE,URINE NEG (NEG); RBC,URINE OCC /HPF (0-2)
[2019-07-11 22:01] LABS: BACTERIA,URINE FEW /HPF (0-FEW); SQUAMOUS EPITHELIAL CELL,UR MOD /LPF
[2019-07-11 22:02] LABS: AMPHETAMINE/METHAMPHETAMINE NEG (NEG)
[2019-07-11] MEDS ORDERED: IPRATRPIUM/ALBUTEROL 0.5/2.5MG 3 ML NEBU. ONE (22:09)
[2019-07-11] MEDS ORDERED: IPRATRPIUM/ALBUTEROL 0.5/2.5MG 3 ML NEBU. NEB ONE (22:15)
--- NOTE | 2019-07-11 23:07 | EKG ---
[address] [address] Test Date: 2019-07-11 Test Time: 20:59:13 Pat Name: SANJAY KIMBALL Department: Room: Gender: F Energy Attorney: : 1945 Requested By: JAKI HINSON Order Number: [id number] Reading MD: Measurements Intervals [place] Rate: 77 P: 27 [place]: 138 QRS: -3 QRSD: 90 T: 34 QT: 374 QTc: 425 Interpretive Statements SINUS RHYTHM LEFTWARD AXIS NO SPECIFIC ECG ABNORMALITIES RI6.01 No previous ECG available for comparison
[2019-07-11] MEDS ORDERED: ENOXAPARIN ** NOTE DOSE ** SYRINGE SQ ONE (23:30)
[2019-07-11] MEDS ORDERED: ACETAMINOPHEN 325 MG TABLET PO PRN (23:30)
[2019-07-11] MEDS ORDERED: ANTI-COAG MONITOR BY PHARMACY. MC PRN (23:30)
[2019-07-11] MEDS ORDERED: ONDANSETRON PF 4 MG/2 ML VIAL. IV PRN (23:30)
[2019-07-11] MEDS ORDERED: IOHEXOL 350 MG/ML 100 ML VIAL. IV ONE (23:45)
[2019-07-11] MEDS ORDERED: levoFLOXacin 500 MG TABLET PO ONE (23:45)
[2019-07-12] MEDS ORDERED: levoFLOXacin 500 MG TABLET PO ONE
--- NOTE | 2019-07-12 00:19 | RAD ---
CT arteriogram of the chest. HISTORY: Elevated d-dimer, dizziness, leg swelling CT arteriogram of the chest was done using 100 mL Omnipaque 350 contrast. Coronal MIP images were reconstructed. Thyroid is homogeneous. There is no mediastinal adenopathy or pleural effusion. The upper aspect of the liver and spleen are unremarkable. There is a small left adrenal adenoma. Right adrenal gland is normal. A pancreatic lesion is not identified. Upper poles the kidneys are unremarkable. Patient's had a cholecystectomy. There is mild dependent atelectasis in the lung bases without other infiltrates. This study is negative for evidence of a pulmonary embolus. IMPRESSION: 1. Negative for a pulmonary embolus. 2. Mild atelectasis without other infiltrates. PQRS Compliance Statement: One or more of the following individualized dose reduction techniques were utilized for this examination: 1. Automated exposure control 2. Adjustment of the mA and/or kV according to patient size 3. Use of iterative reconstruction technique Electronically signed by: Soren Hutchins MD (07/12/2019 12:16 AM) [facility]
[2019-07-12] MEDS ORDERED: METF500T16 PO (00:25)
[2019-07-12] MEDS ORDERED: LORA2TAB89 PO (00:25)
[2019-07-12] MEDS ORDERED: GABA400C7 PO (00:25)
--- NOTE | 2019-07-12 01:20 | NUR ---
Pt was admitted from ER to ICU bed [address] [facility], accompanied by EMS and nursing staff. Pt transferred from [facility] to bed x3 assist by staff. Pt here for high blood sugar, Cellulitis & venous stasis. Pt is pleasant but forgetful, A&Ox3. Pt currently denies pain or discomfort. Admission assessment completed. Health history and home medications reviewed with pt. Pt lives at home with Daughter. VSS. Lovenox for VTE. Pt requesting flu vaccine, order placed. Pt was given written information regarding hospital policies, unit procedures and contact persons. Valuables were checked and left at bedside. Pt assisted up to bathroom x1 assist and walked, unsteady gait noted. PT/OT, RT and CM consulted. Wound pictures taken of left lower leg & placed in chart. Call light within reach.
[2019-07-12 01:30] VITALS: BP 133/80
[2019-07-12 06:00] VITALS: BP 117/58
[2019-07-12 06:43] LABS: BASO # 0.1 x10^3/uL (0.0-0.2); BASO % 1 % (0-3); EOS # 0.1 x10^3/uL (0.0-0.7); EOS % 2 % (0-3); HEMATOCRIT 33.7 % (36.0-47.0); HEMOGLOBIN 11.7 g/dL (12.0-15.5); LYMPH # 2.4 x10^3/uL (1.0-4.8); LYMPH % 39 % (24-48); MEAN CORPUSCULAR HEMOGLOBIN 34 pg (25-35); MEAN CORPUSCULAR HGB CONC 35 g/dL (31-37); MEAN CORPUSCULAR VOLUME 99 fL (79-100); MONO # 0.5 x10^3/uL (0.0-1.1); MONO % 8 % (0-9); NEUT % 50 % (31-73); PLATELET COUNT 119 x10^3/uL (140-400)
[2019-07-12 07:01] LABS: CREATININE 0.9 mg/dL (0.6-1.0); POTASSIUM 3.9 mmol/L (3.5-5.1)
[2019-07-12] MEDS ORDERED: LORazepam 1 MG TABLET PO PRN (07:30)
[2019-07-12] MEDS: IPRATRPIUM/ALBUTEROL 0.5/2.5MG 3 ML NEBU. NEB SCH ×2 (08:00→09:22)
[2019-07-12] MEDS ORDERED: POTASSIUM CHLORIDE 10 MEQ TABLET.ER. PO SCH (08:00)
[2019-07-12] MEDS ORDERED: metFORMIN 500 MG TABLET PO SCH (08:00)
[2019-07-12] MEDS ORDERED: ENOXAPARIN ** NOTE DOSE ** SYRINGE SQ SCH (09:00)
[2019-07-12] MEDS ORDERED: NICOTINE 21MG PATCH. TD SCH (09:00)
[2019-07-12] MEDS ORDERED: ASPIRIN ENTERIC COATED 81 MG TABLET.DR. PO SCH (09:00)
[2019-07-12] MEDS ORDERED: FUROSEMIDE 20 MG TABLET PO SCH (09:00)
[2019-07-12] MEDS ORDERED: LINAGLIPTIN 5 MG TABLET PO SCH (09:00)
[2019-07-12] MEDS ORDERED: LISINOPRIL 2.5 MG TABLET PO SCH (09:00)
[2019-07-12] MEDS ORDERED: ARIPiprazole 15 MG TABLET PO SCH (09:00)
[2019-07-12] MEDS ORDERED: FLU VAX QS 2019-20 (36MOS+)/PF 0.5 ML SYRINGE. VAX IM ONE (09:00)
[2019-07-12] MEDS ORDERED: NON FORMULARY ITEM (Fluticasone/Umeclidin/Vilanter (Trelegy Ellipta 100-62.5-25) 1 EACH) IH SCH (09:00)
[2019-07-12 11:05] VITALS: BP 120/57
--- NOTE | 2019-07-12 11:13 | RAD ---
Left lower extremity venous doppler ultrasound History: Left leg redness and swelling Comparison: None Findings: Multiple grayscale, color, and duplex spectral analysis sonographic images were acquired of the left lower extremity veins to evaluate for the presence of DVT. There is normal phasicity. Normal compression, color-flow, and augmentation is demonstrated from the left common femoral to the popliteal veins. There is normal color flow of the proximal greater saphenous vein and profunda femoris vein. There is normal color flow of segments of the calf veins. Impression: 1. There is no evidence of deep venous thrombosis from the left common femoral to the popliteal veins. Electronically signed by: Terrance Pope MD (07/12/2019 11:11 AM) [facility]
[2019-07-12] MEDS ORDERED: LACTOBACILLUS RHAMNOSUS GG 1 CAPSULE. PO SCH (12:00)
[2019-07-12] MEDS ORDERED: CLIN300C8 PO (12:47)
--- NOTE | 2019-07-12 12:49 | DISCH ---
HOME HEALTH DISCHARGE/MEDS DISCHARGE INFORMATION: Discharge Date: Jul 12, 2019 Final Diagnosis: Problems Medical Problems: (1) Diabetes Status: Acute Condition on Discharge: Stable CODE STATUS: Code Status: Full HOME HEALTH: Face to Face: I certify this patient is under my care and that I, or a nurse practitioner or physician's assistant womens volleyball coach working with me, had a face to face encounter that meets the physician face to face encounter requirements with this patient 07/12/2019 Medical Condition(s): Other Detention For: Medication Management Physical Therapy For: Evalulation/Treatment Occupational Therapy For: Evaluation/Treatment Home Health Aide For: Self-care CERTIFICATION STATEMENT: Certification Statement: Based on the above finding, I certify that this patient is confined to the home and needs intermittent longterm care, physical therapy and/or speech therapy, or continues to need occupational therapy.~ This patient is under my care, and I have initiated the establishment of the plan of care.~ This patient will be followed by myself or a community physician who will periodically review the plan of care. DISCHARGE MEDICATIONS: Home Meds Active Scripts Clindamycin Hcl (CLINDAMYCIN HCL) 300 Mg Capsule, 1 CAP PO TID for cellulitis, #21 CAP Prov:NAM MATTHEW MD 07/12/19 Reported Medications Lorazepam (ATIVAN) 2 Mg Tablet, 2 MG PO HS PRN for INSOMNIA LAST DOSE GIVEN: DATE: TIME: NEXT DOSE DUE: DATE: TIME: 07/12/19 Gabapentin (Gabapentin) 400 Mg Capsule, 400 MG PO HS for Neurogenic Pain LAST DOSE GIVEN: DATE: TIME: NEXT DOSE DUE: DATE: TIME: 07/12/19 Metformin Hcl (METFORMIN HCL) 500 Mg Tablet, 500 MG PO BIDWMEALS for Diabetes LAST DOSE GIVEN: DATE: TIME: NEXT DOSE DUE: DATE: TIME: 07/12/19 Fluticasone/Umeclidin/Vilanter (Trelegy Ellipta 100-62.5-25) 1 Each Blst.w.dev, 1 EACH IH DAILY for COPD LAST DOSE GIVEN: DATE: TIME: NEXT DOSE DUE: DATE: TIME: 06/18/19 Divalproex Sodium (DEPAKOTE ER) 500 Mg Tab.er.24h, 500 MG PO QHS for Mood LAST DOSE GIVEN: DATE: TIME: NEXT DOSE DUE: DATE: TIME: 06/18/19 Aripiprazole (ABILIFY) 15 Mg Tablet, 15 MG PO DAILY for Bipolar LAST DOSE GIVEN: DATE: TIME: NEXT DOSE DUE: DATE: TIME: 06/18/19 Nicotine (NICODERM CQ 21mg) 1 Each Patch.td24, 1 PATCH TP DAILY for Smoking Cessation LAST DOSE GIVEN: DATE: TIME: NEXT DOSE DUE: DATE: TIME: 01/27/19 Trazodone Hcl (TRAZODONE HCL) 50 Mg Tablet, 50 MG PO QHS for Insomnia LAST DOSE GIVEN: DATE: TIME: NEXT DOSE DUE: DATE: TIME: 01/27/19 Sitagliptin Phosphate (JANUVIA) 100 Mg Tablet, 100 MG PO DAILY for Diabetes LAST DOSE GIVEN: DATE: TIME: NEXT DOSE DUE: DATE: TIME: 01/27/19 Potassium Chloride (KLOR-CON 10) 10 Meq Tablet.er, 10 MEQ PO DAILY for potassium supplement LAST DOSE GIVEN: DATE: TIME: NEXT DOSE DUE: DATE: TIME: 01/27/19 Lisinopril (LISINOPRIL) 5 Mg Tablet, 2.5 MG PO DAILY for High blood pressure LAST DOSE GIVEN: DATE: TIME: NEXT DOSE DUE: DATE: TIME: 01/27/19 Furosemide (FUROSEMIDE) 20 Mg Tablet, 20 MG PO DAILY for Swelling/Edema LAST DOSE GIVEN: DATE: TIME: NEXT DOSE DUE: DATE: TIME: 01/27/19 Aspirin (ASPIRIN EC) 81 Mg Tablet.dr, 81 MG PO DAILY for MT prevention LAST DOSE GIVEN: DATE: TIME: NEXT DOSE DUE: DATE: TIME: 01/27/19 NAM MATTHEW MD Jul 12, 2019 12:49
--- NOTE | 2019-07-12 13:37 | NUR ---
Lakisha Mendez setting up home health care services for pt. Pt instructed to call Lakisha if she hasn't heard from home health by Friday; Lakisha's phone number given to pt, written on DC paperwork.
--- NOTE | 2019-07-12 13:37 | NUR ---
Discharge Note: SANJAY KMIBALL [facility] Discharge instructions and discharge home medications reviewed with Patient and family member and a copy given. All questions have been answered and understanding verbalized. The following instructions and handouts were given: education about Clindamycin, diabetes, and discharge instructions. Discontinued lines and drains: Peripheral IV intact. Patient discharged to Home w/services withFamily Membervia Wheelchair
[2019-07-12 13:49] LABS: HDLC 36 mg/dL (40-60); TRIGLYCERIDES 511 mg/dL (0-150); VLDLC 102 mg/dL (0-40)
[2019-07-12 13:50] LABS: THYROID STIM HORMONE (TSH) 6.418 uIU/mL (0.358-3.740)
--- NOTE | 2019-07-12 14:03 | SSS ---
ADMIT DATE: HISTORY OF PRESENT ILLNESS: The patient is a 73-year-old female patient, who was brought to the Emergency Room with slightly swollen, erythematous left leg. She also had her sugar a little bit in the high side and she was extensively investigated in the Emergency Room. Her white cell count was normal. She was afebrile. Her lab work when she arrived to the Emergency Room showed her blood sugar was only 160 mg/dL; however, her D-dimer was high at 0.93 mg/dL and therefore, she has had a chest x-ray, which was unremarkable and in fact there is interval clearing with the left lung base infiltrate, small residual left side, pleural effusion is still present. She has venous Doppler ultrasound of left lower extremity, which showed there is no evidence of deep vein thrombosis from the left common femoral to the popliteal veins. CT scan was negative for pulmonary embolus. She has mild atelectasis without other infiltrate. As her blood sugar remained stable and she has mild area of erythema on her medial aspect of left leg, a decision was made to discharge her home to continue on oral antibiotic and was discharged with home health to monitor her blood sugar. PAST MEDICAL HISTORY: Significant for hypertension, type 2 diabetes mellitus, chronic obstructive pulmonary disease, hypercholesterolemia, bipolar disorder. PAST SURGICAL HISTORY: Unremarkable. FAMILY HISTORY: Noncontributory. SOCIAL HISTORY: Her daughter lives with her. She continues to smoke and has been smoking since she was 14 years old. She does not drink alcohol or use any recreational drugs. ALLERGIES: She is allergic to PENICILLIN, MORPHINE, PROCAINE AND QUETIAPINE. MEDICATIONS: She is currently on following medications: She is on lisinopril 2.5 mg once a day, aspirin 81 mg once a day, divalproex sodium 500 mg at bedtime, gabapentin 400 mg at bedtime, trazodone 50 mg at bedtime, aripiprazole for Abilify 15 mg at bedtime. She is on lorazepam for Ativan 2 mg at bedtime as needed, potassium chloride 10 mEq once a day, furosemide 20 mg once a day, Trelegy Ellipta 1 inhalation once a day, metformin 500 mg twice a day and sitagliptin for Januvia 100 mg daily. REVIEW OF SYSTEMS: As per history of present illness. PHYSICAL EXAMINATION: GENERAL: On arrival to the Emergency Room, she looked well and was clearly in no apparent respiratory distress, slightly pale, but no jaundice, cyanosis or thyromegaly. No jugular venous distension. No lower limb edema. VITAL SIGNS: Her heart rate was 67, blood pressure was 146/40, temperature was 98, respiratory rate was 18 and oxygen saturation was 96% on room air. HEAD, EYES, EARS, NOSE AND THROAT: Showed normocephalic, atraumatic. NECK: Supple. HEART: Showed normal first and second heart sounds. No gallop or murmur. CHEST: Clear to auscultation. No crepitation or rhonchi. ABDOMEN: Distended, soft, nontender. NEUROLOGIC: She is awake, alert, responding appropriately. All cranial nerves intact. EXTREMITIES: She moves extremities without difficulty. Examination of the lower extremity showed she has area of erythema that is hot to touch on the medial aspect of the left leg when compared to the right lower extremity. LABORATORY DATA: Her lab work on arrival showed a white cell count 7100, hemoglobin 12, hematocrit 36, MCV 99 and platelet count of 151,000. Her chemistry showed a serum sodium of 141, potassium 3.9, chloride 101, bicarbonate 34, anion gap of 6, BUN 18, creatinine 0.9, estimated GFR was 61 mL per minute. Glucose 160, calcium was 8.3, magnesium was 1.9. Total bilirubin, AST, ALT, alkaline phosphatase were normal. Total protein was 6.6, albumin was 3.1 and lipase was 96. Her prothrombin time, INR and aPTT normal. D-dimer was high at 0.93. Urinalysis was unremarkable and toxic screen was negative. She was discharged home to continue on following medications: Clindamycin 300 mg 3 times a day for 7 days, aripiprazole for Abilify 15 mg at bedtime, aspirin 81 mg once a day, divalproex 500 mg at bedtime, Trelegy Ellipta 1 inhalation once a day, furosemide 20 mg once a day, gabapentin 400 mg at bedtime, lisinopril 2.5 mg daily, lorazepam 2 mg at bedtime as needed, metformin 500 mg twice a day, Nicoderm patch 21 mg topically daily, potassium chloride 10 mEq once a day, sitagliptin for Januvia 100 mg once a day and trazodone 50 mg at bedtime. FINAL DISCHARGE DIAGNOSES: 1. Left lower extremity cellulitis, which she was discharged on clindamycin 300 mg 3 times a day. 2. Type 2 diabetes that seems to be reasonably controlled on metformin and Januvia. Other medical problems include hypertension, hyperlipidemia, chronic obstructive pulmonary disease, bipolar disorder and anxiety, generalized osteoarthritis. NAM MATTHEW MD DR: ROSEMARY/matheus JOB#: [id number] / [id number]
[2019-07-12] MEDS ORDERED: GABAPENTIN 400 MG CAPSULE. PO SCH (21:00)
[2019-07-12] MEDS ORDERED: traZODone 50 MG TABLET. PO SCH (21:00)
[2019-07-12] MEDS ORDERED: levoFLOXacin 500 MG TABLET PO SCH (21:00)
[2019-07-12] MEDS ORDERED: DIVALPROEX ER 500 MG TAB.ER.24H PO SCH (21:00)
[2019-07-12 23:06] LABS: HEMOGLOBIN A1C 8.1 % (4.8-5.6)
== END 2019-07-12 13:40 | disposition home health service (06) ==
LOC: ER 20:33 → INTOOBSV 23:00 → ICU 23:00
PROVIDERS: ADMIT Internal Medicine; ATTEND Internal Medicine
DX: L03.116 Cellulitis of left lower limb (principal); I11.0 Hypertensive heart disease with heart failure; I50.9 Heart failure, unspecified; J44.9 Chronic obstructive pulmonary disease, unspecified; E78.00 Pure hypercholesterolemia, unspecified; F31.9 Bipolar disorder, unspecified; F41.9 Anxiety disorder, unspecified; M19.90 Unspecified osteoarthritis, unspecified site; E11.9 Type 2 diabetes mellitus without complications; F17.210 Nicotine dependence, cigarettes, uncomplicated; Z79.84 Long term (current) use of oral hypoglycemic drugs; Z90.49 Acquired absence of other specified parts of digestive tract; Z23 Encounter for immunization
CPT/HCPCS: 36415; 71045; 71275; 80048; 80061; 80076; 80307; 81001; 82550; 83036; 83690; 83735; 83880; 84443; 84484; 85025; 85379; 85610; 85730; 87040; 90471; 90686; 93005; 93971; 94640; 96372; 97161; 97166; 99284; 99406; G0378; J1650; J7620; Q9967; G0379

== ENCOUNTER 2019-07-21 17:43 | Observation (INO) | payer OTHER, MEDICAID ==
[~2019-07-21] VITALS: Ht 167.6 cm; Wt 91.6 kg
[~2019-07-21 17:43] MED LIST changes: +CLIN300C8 PO; +GABA400C7 PO; +LORA2TAB89 PO
--- NOTE | 2019-07-21 18:12 | PHYS DOC ---
Past History Past Medical History: Anxiety, Arthritis, Bipolar, Bronchitis, CHF, COPD, Dementia, Diabetes, High Cholesterol, Hypertension, Pneumonia, Other Additional Past Medical Histor: cellulitis Past Surgical History: Cholecystectomy, Other Smoking: Cigarettes Alcohol Use: None Drug Use: None Adult General Chief Complaint Chief Complaint: LOWER EXT PAIN HPI HPI Patient is a 73-year-old female who presents with complaint of chest discomfort and shortness breath. There was also concerned about possibility of cellulitis and left lower leg. Family thought that it looked quite a bit more red than it has over the last few days. Patient rates pain in her chest at a 6 out of 10. She denies any nausea, vomiting or diaphoresis. She states that shortness breath is worsened with exertion. She does admit to a cough but states that it has not been productive. She denies any fever. She describes the pain in her chest is like a pressure.[] Review of Systems Review of Systems Constitutional: Denies fever or chills [] Respiratory: Positive cough and shortness of breath [] Cardiovascular: No additional information not addressed in HPI [] GI: Denies abdominal pain, nausea, vomiting or diarrhea [] Integument: Denies rash or skin lesions [] Neurologic: Denies headache, focal weakness or sensory changes [] All other systems were reviewed and found to be within normal limits, except as documented in this note. Allergies Allergies Allergies Coded Allergies Type Severity Reaction Last Updated Verified Penicillins Allergy Intermediate 07/21/19 Yes procaine Allergy Intermediate 07/21/19 Yes quetiapine Allergy Intermediate 07/21/19 Yes morphine Allergy Mild Unknown 07/21/19 Yes Physical Exam Physical Exam Constitutional: Well developed, well nourished, no acute distress, non-toxic appearance. [] HENT: Normocephalic, atraumatic, bilateral external ears normal, oropharynx moist, no oral exudates, nose normal. [] Eyes: PERRLA, EOMI, conjunctiva normal, no discharge. [] Neck: Normal range of motion, no tenderness, supple, no stridor. [] Cardiovascular: Regular rate and rhythm[] Lungs & Thorax: Bilateral breath sounds clear to auscultation [] Abdomen: Bowel sounds normal, soft, no tenderness. [] Skin: Warm, dry, no erythema, no rash. [] Extremities: No tenderness, no cyanosis, no clubbing, ROM intact, with nonpitting edema. [] Neurologic: Alert and oriented X 3, no focal deficits noted. [] Current Patient Data Vital Signs Vital Signs Date Time Temp Pulse Resp B/P (MAP) Pulse Ox O2 Delivery O2 Flow Rate FiO2 07/21/19 17:55 97.6 66 18 129/68 (88) 97 Room Air EKG EKG [] Radiology/Procedures Radiology/Procedures [] Impressions: PROCEDURE: PORTABLE CHEST 1V Examination: PORTABLE CHEST 1V History: Chest pain, shortness of breath Comparison/Correlation: 07/11/2019 portable chest x-ray exam Findings: Portable frontal view of the chest was obtained. Heart size is borderline and the same technique related. No pneumothorax. No significant or definite effusion. No definite infiltrate although evaluation of the retrocardiac region may be limited. Impression: No definite infiltrate. Consider a follow-up two-view chest x-ray exam for more definitive assessment if clinically warranted. Electronically signed by: Abbe Bey MD (07/21/2019 6:37 PM) [facility] Course & Med Decision Making Course & Med Decision Making Pertinent Labs and Imaging studies reviewed. (See chart for details) [] Dragon Disclaimer Dragon Disclaimer This electronic medical record was generated, in whole or in part, using a voice recognition dictation system. Departure Departure: Impression: Primary Impression: Chest pain Disposition: ADMITTED INPATIENT Admitting Physician: Roberto Lazar Condition: IMPROVED Referrals: DAINA ROBERTS (PCP) Problem Qualifiers Primary Impression: Chest pain Chest pain type: unspecified Qualified Codes: R07.9 - Chest pain, unspecified ANA HADDAD Jr. DO Jul 21, 2019 18:12
[2019-07-21] MEDS ORDERED: ASPIRIN 81 MG TAB.CHEW PO ONE (18:15)
[2019-07-21 18:36] LABS: BASO # 0.1 x10^3/uL (0.0-0.2); BASO % 1 % (0-3); EOS # 0.2 x10^3/uL (0.0-0.7); EOS % 2 % (0-3); HEMATOCRIT 34.6 % (36.0-47.0); HEMOGLOBIN 11.7 g/dL (12.0-15.5); LYMPH # 1.9 x10^3/uL (1.0-4.8); LYMPH % 25 % (24-48); MEAN CORPUSCULAR HEMOGLOBIN 34 pg (25-35); MEAN CORPUSCULAR HGB CONC 34 g/dL (31-37); MEAN CORPUSCULAR VOLUME 102 fL (79-100); MONO # 0.7 x10^3/uL (0.0-1.1); MONO % 10 % (0-9); NEUT # 4.6 x10^3uL (1.8-7.7); NEUT % 62 % (31-73); PLATELET COUNT 161 x10^3/uL (140-400); RED BLOOD COUNT 3.41 x10^6/uL (3.50-5.40); WHITE BLOOD COUNT 7.5 x10^3/uL (4.0-11.0)
[2019-07-21 18:39] LABS: CALCIUM 8.7 mg/dL (8.5-10.1); GFR 54.1; POTASSIUM 4.4 mmol/L (3.5-5.1)
--- NOTE | 2019-07-21 18:40 | RAD ---
Examination: PORTABLE CHEST 1V History: Chest pain, shortness of breath Comparison/Correlation: 07/11/2019 portable chest x-ray exam Findings: Portable frontal view of the chest was obtained. Heart size is borderline and the same technique related. No pneumothorax. No significant or definite effusion. No definite infiltrate although evaluation of the retrocardiac region may be limited. Impression: No definite infiltrate. Consider a follow-up two-view chest x-ray exam for more definitive assessment if clinically warranted. Electronically signed by: Abbe Bey MD (07/21/2019 6:37 PM) [facility]
[2019-07-21 18:51] LABS: ALBUMIN 3.1 g/dL (3.4-5.0); MAGNESIUM 1.9 mg/dL (1.8-2.4); TOTAL BILIRUBIN 0.5 mg/dL (0.2-1.0); TOTAL PROTEIN 6.3 g/dL (6.4-8.2)
[2019-07-21] MEDS ORDERED: ONDANSETRON PF 4 MG/2 ML VIAL. IV PRN (19:30)
[2019-07-21 20:25] VITALS: BP 122/73
--- NOTE | 2019-07-21 21:00 | NUR ---
The patient, SANJAY KIMBALL, 73 y/o, F admitted by NAM MATTHEW MD, was given written information regarding hospital policies, unit procedures and contact persons. Valuables were checked and left in room.
--- NOTE | 2019-07-21 21:17 | EKG ---
[address] [address] Test Date: 2019-07-21 Test Time: 18:40:57 Pat Name: SANJAY KIMBALL Department: Room: Gender: F Ladle Cleaner: : 1945 Requested By: ANA HADDAD Order Number: [id number] Reading MD: Measurements Intervals [place] Rate: 66 P: 18 CO: 148 QRS: -3 QRSD: 92 T: 47 QT: 376 QTc: 396 Interpretive Statements SINUS RHYTHM LEFTWARD AXIS QRS(T) CONTOUR ABNORMALITY CONSIDER ANTEROSEPTAL MYOCARDIAL DAMAGE POSSIBLY ABNORMAL ECG RI6.01 No previous ECG available for comparison
[2019-07-21] MEDS ORDERED: traZODone 50 MG TABLET. PO SCH (21:30)
[2019-07-21] MEDS ORDERED: GABAPENTIN 400 MG CAPSULE. PO SCH (21:30)
[2019-07-21] MEDS ORDERED: DIVALPROEX ER 500 MG TAB.ER.24H PO SCH (21:30)
[2019-07-21] MEDS ORDERED: LORazepam 1 MG TABLET PO PRN (21:45)
[2019-07-21 23:51] VITALS: BP 116/66
[2019-07-22] MEDS: IPRATRPIUM/ALBUTEROL 0.5/2.5MG 3 ML NEBU. NEB SCH ×3 (04:48→16:00)
[2019-07-22 05:38] VITALS: BP_SYST 117; BP_SYST 121; BP_SYST 130; BP_DIAS 62; BP_DIAS 68; BP_DIAS 70
--- NOTE | 2019-07-22 05:44 | NUR ---
Cardiac consult called to [facility] answering service.
[2019-07-22 07:25] LABS: HEMATOCRIT 34.3 % (36.0-47.0); HEMOGLOBIN 11.6 g/dL (12.0-15.5); RED BLOOD COUNT 3.38 x10^6/uL (3.50-5.40); WHITE BLOOD COUNT 8.2 x10^3/uL (4.0-11.0)
[2019-07-22 07:32] LABS: CREATININE 0.8 mg/dL (0.6-1.0); GFR 69.9
[2019-07-22] MEDS ORDERED: BUDESONIDE 0.5 MG/2 ML NEBU NEB SCH (08:00)
[2019-07-22] MEDS ORDERED: POTASSIUM CHLORIDE 10 MEQ TABLET.ER. PO SCH (08:00)
--- NOTE | 2019-07-22 08:10 | PDOC2 ---
CARDIAC CONSULT DATE OF CONSULT Date Of Consult DATE: 07/22/19 TIME: 08:05 REASON FOR CONSULT Reason for Consult Chest pain REFERRING PHYSICIAN Referring Physician Dr. Xavier SOURCE Source: Chart review, Patient HPI History of Present Illness This is a 73 yo female who presented secondary to chest pain and swelling in her left lower leg. Patient was treated here last week for left lower extremity cellulitis. Was treated with antibiotic therapy and discharged home. Patient thought her leg was possibly swelling again so her daughter brought her into the ED for further evaluation. Also reported experiencing pain in her left chest, which prompted this consult. Patient reports having "flu" last week. Has had lingering cough. This past Friday, developed "spasms" in her left chest when she coughs. No associated shortness of breath, dizziness, diaphoresis, or nausea/vomiting. PAST MEDICAL HISTORY Cardiovascular: HTN, hyperipidemia Pulmonary: COPD GI: Diverticulosis Heme/Onc: Cancer (colon ) Psych: Anxiety, Bipolar, Depression Musculoskeletal: Osteoarthritis Renal/: UTI Endocrine: Diabetes PAST SURGICAL HISTORY Past Surgical History: Colon Resection FAMILY HISTORY Family History: Cancer, Diabetes SOCIAL HISTORY Smoke: <1 pack per day ALCOHOL: none Drugs: None Lives: with Family CURRENT MEDICATIONS Current Medications Current Medications Aspirin (Children'S Aspirin) 324 mg 1X ONCE PO Last administered on 07/21/19at 18:26; Start 07/21/19 at 18:15; Stop 07/21/19 at 18:49; Status DC Ondansetron HCl (Zofran) 4 mg PRN Q4HRS PRN IV NAUSEA/VOMITING; Start 07/21/19 at 19:30; Stop 07/22/19 at 19:29 Fentanyl Citrate (Fentanyl 2ml Vial) 25 mcg PRN Q2HR PRN IV PAIN; Start 07/21/19 at 19:30 Aripiprazole (Abilify) 15 mg DAILY PO ; Start 07/22/19 at 09:00 Aspirin (Aspirin Enteric Coated) 81 mg DAILY PO ; Start 07/22/19 at 09:00 Divalproex Sodium (Depakote Er) 500 mg QHS PO Last administered on 07/21/19at 21:44; Start 07/21/19 at 21:30 Furosemide (Lasix) 20 mg DAILY PO ; Start 07/22/19 at 09:00 Gabapentin (Neurontin) 400 mg HS PO Last administered on 07/21/19at 21:44; Start 07/21/19 at 21:30 Lisinopril (Prinivil) 2.5 mg DAILY PO ; Start 07/22/19 at 09:00 Metformin HCl (Glucophage) 500 mg BIDWMEALS PO ; Start 07/22/19 at 08:00 Nicotine (Nicoderm Cq 21mg) 1 patch DAILY TD ; Start 07/22/19 at 09:00 Trazodone HCl (Desyrel) 50 mg QHS PO Last administered on 07/21/19at 21:44; Start 07/21/19 at 21:30 Non-Formulary Medication (Fluticasone/ Umeclidin/ Vilanter (Trelegy Ellipta 100-62.5-25)) 1 each DAILY IH ; Start 07/22/19 at 09:00; Status UNV Lorazepam (Ativan) 2 mg PRN QHS PRN PO INSOMNIA; Start 07/21/19 at 21:45 Potassium Chloride (Klor-Con) 10 meq DAILYWBKFT PO ; Start 07/22/19 at 08:00 Linagliptin (Tradjenta) 5 mg DAILY PO ; Start 07/22/19 at 09:00 Albuterol/ Ipratropium (Duoneb) 3 ml RTQID NEB Last administered on 07/22/19at 04:48; Start 07/22/19 at 08:00 Budesonide (Pulmicort) 0.5 mg RTBID NEB ; Start 07/22/19 at 08:00 Active Scripts Active Reported Ativan (Lorazepam) 2 Mg Tablet 2 Mg PO HS PRN LAST DOSE GIVEN: DATE: TIME: NEXT DOSE DUE: DATE: TIME: Gabapentin 400 Mg Capsule 400 Mg PO HS LAST DOSE GIVEN: DATE: TIME: NEXT DOSE DUE: DATE: TIME: Metformin Hcl 500 Mg Tablet 500 Mg PO BIDWMEALS LAST DOSE GIVEN: DATE: TIME: NEXT DOSE DUE: DATE: TIME: Trelegy Ellipta 100-62.5-25 (Fluticasone/Umeclidin/Vilanter) 1 Each Blst.w.dev 1 Each IH DAILY LAST DOSE GIVEN: DATE: TIME: NEXT DOSE DUE: DATE: TIME: Depakote Er (Divalproex Sodium) 500 Mg Tab.er.24h 500 Mg PO QHS LAST DOSE GIVEN: DATE: TIME: NEXT DOSE DUE: DATE: TIME: Abilify (Aripiprazole) 15 Mg Tablet 15 Mg PO DAILY LAST DOSE GIVEN: DATE: TIME: NEXT DOSE DUE: DATE: TIME: NICODERM CQ 21mg (Nicotine) 1 Each Patch.td24 1 Patch TP DAILY LAST DOSE GIVEN: DATE: TIME: NEXT DOSE DUE: DATE: TIME: Trazodone Hcl 50 Mg Tablet 50 Mg PO QHS LAST DOSE GIVEN: DATE: TIME: NEXT DOSE DUE: DATE: TIME: Januvia (Sitagliptin Phosphate) 100 Mg Tablet 100 Mg PO DAILY LAST DOSE GIVEN: DATE: TIME: NEXT DOSE DUE: DATE: TIME: Klor-Con 10 (Potassium Chloride) 10 Meq Tablet.er 10 Meq PO DAILY LAST DOSE GIVEN: DATE: TIME: NEXT DOSE DUE: DATE: TIME: Lisinopril 5 Mg Tablet 2.5 Mg PO DAILY LAST DOSE GIVEN: DATE: TIME: NEXT DOSE DUE: DATE: TIME: Furosemide 20 Mg Tablet 20 Mg PO DAILY LAST DOSE GIVEN: DATE: TIME: NEXT DOSE DUE: DATE: TIME: Aspirin Ec (Aspirin) 81 Mg Tablet.dr 81 Mg PO DAILY LAST DOSE GIVEN: DATE: TIME: NEXT DOSE DUE: DATE: TIME: ALLERGIES Allergies: Coded Allergies: Penicillins (Verified Allergy, Intermediate, 07/21/19) procaine (Verified Allergy, Intermediate, 07/21/19) quetiapine (Verified Allergy, Intermediate, 07/21/19) morphine (Verified Allergy, Mild, Unknown, 07/21/19) ROS Review of Systems 14 point ROS conducted with pertinent positives noted above in hPI PHYSICAL EXAM General: Alert, Oriented X3, Cooperative, No acute distress HEENT: Atraumatic, Mucous membr. moist/pink Lungs: Clear to auscultation, Normal air movement Heart: Regular rate, Normal S1, Normal S2 Abdomen: Soft, No tenderness Extremities: No edema, Normal pulses Skin: No breakdown Neuro: Normal speech, Sensation intact Psych/Mental Status: Mental status NL, Mood NL MUSCULOSKELETAL: Osteoarthritic changes both hands VITALS Vital Signs Vital Signs Date Time Temp Pulse Resp B/P (MAP) Pulse Ox O2 Delivery O2 Flow Rate FiO2 07/22/19 07:25 Room Air 07/22/19 05:38 97.9 64 20 117/68 (84) 93 130/70 (90) 121/62 (81) LABS LABS Laboratory Tests Test 07/21/19 18:15 07/22/19 01:15 07/22/19 07:14 07/22/19 07:47 White Blood Count 7.5 x10^3/uL (4.0-11.0) 8.2 x10^3/uL (4.0-11.0) Red Blood Count 3.41 x10^6/uL (3.50-5.40) 3.38 x10^6/uL (3.50-5.40) Hemoglobin 11.7 g/dL (12.0-15.5) 11.6 g/dL (12.0-15.5) Hematocrit 34.6 % (36.0-47.0) 34.3 % (36.0-47.0) Mean Corpuscular Volume 102 fL (79-100) 101 fL (79-100) Mean Corpuscular Hemoglobin 34 pg (25-35) 34 pg (25-35) Mean Corpuscular Hemoglobin Concent 34 g/dL (31-37) 34 g/dL (31-37) Red Cell Distribution Width 13.0 % (11.5-14.5) 13.0 % (11.5-14.5) Platelet Count 161 x10^3/uL (140-400) 154 x10^3/uL (140-400) Neutrophils (%) (Auto) 62 % (31-73) Lymphocytes (%) (Auto) 25 % (24-48) Monocytes (%) (Auto) 10 % (0-9) Eosinophils (%) (Auto) 2 % (0-3) Basophils (%) (Auto) 1 % (0-3) Neutrophils # (Auto) 4.6 x10^3uL (1.8-7.7) Lymphocytes # (Auto) 1.9 x10^3/uL (1.0-4.8) Monocytes # (Auto) 0.7 x10^3/uL (0.0-1.1) Eosinophils # (Auto) 0.2 x10^3/uL (0.0-0.7) Basophils # (Auto) 0.1 x10^3/uL (0.0-0.2) Sodium Level 143 mmol/L (136-145) 141 mmol/L (136-145) Potassium Level 4.4 mmol/L (3.5-5.1) 4.0 mmol/L (3.5-5.1) Chloride Level 105 mmol/L (98-107) 105 mmol/L (98-107) Carbon Dioxide Level 33 mmol/L (21-32) 30 mmol/L (21-32) Anion Gap 5 (6-14) 6 (6-14) Blood Urea Nitrogen 23 mg/dL (7-20) 20 mg/dL (7-20) Creatinine 1.0 mg/dL (0.6-1.0) 0.8 mg/dL (0.6-1.0) Estimated GFR (Cockcroft-Gault) 54.1 69.9 BUN/Creatinine Ratio 23 (6-20) Glucose Level 196 mg/dL (70-99) 158 mg/dL (70-99) Calcium Level 8.7 mg/dL (8.5-10.1) 8.0 mg/dL (8.5-10.1) Magnesium Level 1.9 mg/dL (1.8-2.4) Total Bilirubin 0.5 mg/dL (0.2-1.0) Aspartate Amino Transf (AST/SGOT) 24 U/L (15-37) Alanine Aminotransferase (ALT/SGPT) 37 U/L (14-59) Alkaline Phosphatase 143 U/L (46-116) Troponin I Quantitative < 0.017 ng/mL (0-0.055) < 0.017 ng/mL (0-0.055) < 0.017 ng/mL (0-0.055) NW-Ngm-A-Type Natriuretic Peptide 95 pg/mL (0-449) Total Protein 6.3 g/dL (6.4-8.2) Albumin 3.1 g/dL (3.4-5.0) Albumin/Globulin Ratio 1.0 (1.0-1.7) Lipase 113 U/L (73-393) Glucose (Fingerstick) 161 mg/dL (70-99) ASSESSMENT/PLAN Assessment/Plan 1. Chest pain, atypical. AMI ruled out. Most probably MSK as occurs with cough and is reproducible with palpitation. 2. Hypertension; controlled 3. Hyperlipidemia 4. Diabetes, II 5. Anxiety, depression, bipolar 6. Recent LLE cellulitis 7. Tobaccoism; discussed/encouraged cessation Recommendations Continue ASA Lipids- statin if indicated Pain very atypical, but given risk factors, will obtain baseline echo to assess LV systolic function. This can be done as an outpatient as well if patient is to be discharge today. MARIAMA PULIDO APRN Jul 22, 2019 08:09
[2019-07-22] MEDS ORDERED: ASPIRIN ENTERIC COATED 81 MG TABLET.DR. PO SCH (09:00)
[2019-07-22] MEDS ORDERED: FUROSEMIDE 20 MG TABLET PO SCH (09:00)
[2019-07-22] MEDS ORDERED: LINAGLIPTIN 5 MG TABLET PO SCH (09:00)
[2019-07-22] MEDS ORDERED: NON FORMULARY ITEM (Fluticasone/Umeclidin/Vilanter (Trelegy Ellipta 100-62.5-25) 1 EACH) IH SCH (09:00)
[2019-07-22] MEDS ORDERED: LISINOPRIL 2.5 MG TABLET PO SCH (09:00)
[2019-07-22] MEDS ORDERED: NICOTINE 21MG PATCH. TD SCH (09:00)
[2019-07-22] MEDS ORDERED: ARIPiprazole 15 MG TABLET PO SCH (09:00)
[2019-07-22] MEDS: metFORMIN 500 MG TABLET PO SCH ×2 (09:27→16:28)
[2019-07-22 10:04] VITALS: BP 110/64
[2019-07-22 14:42] VITALS: BP 123/72
--- NOTE | 2019-07-22 15:18 | CARD ---
MR#: [id number] Date of Study: 07/22/2019 Ordering Physician: MARIAMA PULIDO, Referring Physician: MARIAMA PULIDO, Tech: Catina Baca APPROVED REPORT EXAM: Two-dimensional and M-mode echocardiogram with Doppler and color Doppler. Other Information Quality : AverageHR: 57bpm INDICATION Chest Pain 2D DIMENSIONS RVDd3.1 (2.9-3.5cm)Left Atrium(2D)3.9 (1.6-4.0cm) IVSd1.1 (0.7-1.1cm)Aortic Root(2D)2.9 (2.0-3.7cm) LVDd5.1 (3.9-5.9cm)LVOT Diameter2.3 (1.8-2.4cm) PWd1.1 (0.7-1.1cm)LVDs2.8 (2.5-4.0cm) FS (%) 45.8 %SV96.1 ml LVEF(%)76.8 (>50%) Aortic Valve AoV Peak Tom.142.3cm/sAoV VTI32.3cm AO Peak GR.8.1mmHgLVOT Peak Tom.109.7cm/s LVOT VTI 27.51cmAO Mean GR.4mmHg SWATHI (VMAX)3.56pi6PGU (VTI)3.67cm2 Mitral Valve MV E Lqsfsofe62.6cm/sMV DECEL OYZZ289lv MV A Xvstdbxw27.3cm/sE/A Ratio0.6 Pulmonary Valve PV Peak Lchfjkgu39.1cm/sPV Peak Grad.3mmHg Tricuspid Valve TR P. Bbwcdwpg536gs/sRAP USMQYUMR3ibYo TR Peak Gr.36xjTaIUUZ73okHq Pulmonary Vein S1 Zpsfsguw05.0cm/sD2 Kypwwhdh47.6cm/s LEFT VENTRICLE The left ventricle is normal size. There is mild concentric left ventricular hypertrophy. The left ve ntricular systolic function is normal. The Ejection Fraction is 55-60%. There is normal LV segmental wall motion. Transmitral Doppler flow pattern is Grade I-abnormal relaxation pattern. RIGHT VENTRICLE The right ventricle is normal size. There is normal right ventricular wall thickness. The right ventr icular systolic function is normal. ATRIA The left atrium size is normal. The right atrium size is normal. The interatrial septum is intact wit h no evidence for an atrial septal defect or patent foramen ovale as noted on 2-D or Doppler imaging. AORTIC VALVE The aortic valve is normal in structure and function. Doppler and Color Flow revealed no significant aortic regurgitation. There is no significant aortic valvular stenosis. MITRAL VALVE The mitral valve is normal in structure and function. There is no evidence of mitral valve prolapse. There is no mitral valve stenosis. Doppler and Color-flow revealed trace mitral regurgitation. TRICUSPID VALVE The tricuspid valve is normal in structure and function. Doppler and Color Flow revealed trace tricus pid regurgitation with an estimated PAP of26 mmHg. There is no tricuspid valve stenosis. PULMONIC VALVE The pulmonic valve is not well visualized. Doppler and Color Flow revealed no pulmonic valvular regur gitation. GREAT VESSELS The aortic root is normal in size. The ascending aorta is normal in size. The IVC is normal in size a nd collapses >50% with inspiration. PERICARDIAL EFFUSION There is no evidence of significant pericardial effusion. Critical Notification Critical Value: No <Conclusion> The left ventricular systolic function is normal. The Ejection Fraction is 55-60%. There is normal LV segmental wall motion. Transmitral Doppler flow pattern is Grade I-abnormal relaxation pattern. Trace mitral regurgitation. Trace tricuspid regurgitation with an estimated PAP of26 mmHg. There is no evidence of significant pericardial effusion. Signed by : Nilo Garnett, Electronically Approved : 07/22/2019 15:18:35
--- NOTE | 2019-07-22 17:16 | NUR ---
Pt discharged home with daughter. VSS. NAD. Denies pain. PIV removed without complications. Discharge instructions reviewed with patient and discharge materials sent home with daughter. Questions answered. No falls or injury reported. All belongings accounted for.
== END 2019-07-22 17:19 | disposition home or self-care (01) ==
LOC: ER 17:43 → 1 SOUTH 19:30 → INTOOBSV 19:30 → ER 20:06
PROVIDERS: ADMIT Internal Medicine; ATTEND Internal Medicine
DX: R07.89 Other chest pain (principal); I11.0 Hypertensive heart disease with heart failure; I50.9 Heart failure, unspecified; E78.5 Hyperlipidemia, unspecified; E11.9 Type 2 diabetes mellitus without complications; F41.8 Other specified anxiety disorders; F31.9 Bipolar disorder, unspecified; L03.116 Cellulitis of left lower limb; F17.210 Nicotine dependence, cigarettes, uncomplicated; F41.9 Anxiety disorder, unspecified; J44.9 Chronic obstructive pulmonary disease, unspecified; M19.90 Unspecified osteoarthritis, unspecified site; F03.90 Unspecified dementia, unspecified severity, without behavioral disturbance, psychotic disturbance, mood disturbance, and anxiety; Z85.038 Personal history of other malignant neoplasm of large intestine; Z79.899 Other long term (current) drug therapy; Z79.82 Long term (current) use of aspirin; Z88.0 Allergy status to penicillin
CPT/HCPCS: 36415; 71045; 80048; 80053; 80061; 82947; 83690; 83735; 83880; 84484; 85025; 85027; 93005; 93306; 94640; 97116; 97161; 97166; 97535; 99284; 99406; G0378; J7620; G0379; J7626

== ENCOUNTER 2020-02-14 10:09 | Emergency (ER) | payer OTHER, MEDICAID ==
[~2020-02-14] VITALS: Ht 167.6 cm; Wt 97.6 kg
[~2020-02-14 10:09] MED LIST changes: -ASPI-612 PO; +ASPI-889 PO
--- NOTE | 2020-02-14 10:19 | PHYS DOC ---
Past History Past Medical History: Anxiety, Arthritis, Bipolar, Bronchitis, CHF, COPD, Dementia, Diabetes, High Cholesterol, Hypertension, Pneumonia, Other Additional Past Medical Histor: cellulitis Past Surgical History: Cholecystectomy, Other Smoking: Cigarettes Alcohol Use: None Drug Use: None Adult General Chief Complaint Chief Complaint: MECHANICAL FALL HPI HPI Patient is a 74-year-old female who presents for a fall that occurred just prior to arrival. The mechanism of injury was a mechanical ground level fall without syncope or near-syncope. Reports utilizing walker and fell forward onto outstretched left hand hitting left head on pavement. The current level of pain is minimal The patient does not take blood thinner medications. There is NOT a laceration associated with the injury. There was no loss of consciousness, confusion, seizure, or memory impairment. Admits neck discomfort and improved vaginal irritation (recently diagnosed and treated for UTI, last day of antibiotics was this morning) Denies vomiting, numbness/weakness, fever Review of Systems Review of Systems Fourteen body systems of review of systems have been reviewed. See HPI for pertinent positives and negative responses, other arredondo all other systems are negative, non-pertinent or non-contributory Allergies Allergies Allergies Coded Allergies Type Severity Reaction Last Updated Verified Penicillins Allergy Intermediate 07/21/19 Yes procaine Allergy Intermediate 07/21/19 Yes quetiapine Allergy Intermediate 07/21/19 Yes morphine Allergy Mild Unknown 07/21/19 Yes haloperidol Adverse Reaction Intermediate muscle spasms 08/05/19 Yes Physical Exam Physical Exam Constitutional: Pt is oriented to person, place, and time. Pt appears well- developed and well-nourished. HENT: Head: Normocephalic and atraumatic. Mouth/Throat: Oropharynx is clear and moist. No hematomas or lacerations or abrasions to face or scalp OP clear, no blood, no malocclusion, dentition intact Nares clear, no nasal septal hematoma Midface stable Eyes: Conjunctivae and EOM are normal. Pupils are equal, round, and reactive to light. Neck: C-spine midline, in c-collar, no midline tenderness, no step-offs Cardiovascular: Normal rate, regular rhythm and normal heart sounds. Pulmonary/Chest: Effort normal and breath sounds normal. No respiratory distress . He has no wheezes. CTA bilaterally Abdominal: Soft. Bowel sounds are normal. Pt exhibits no distension. There is no tenderness. Musculoskeletal: No bony tenderness to extremities; however, tenderness to left hyperthenar eminence, no other deformities noted, full ROM extremities Chest wall stable Pelvis stable and non-tender No vertebral TTP and spine without stepoffs Neurological: Pt is alert and oriented to person, place, and time. Moving all extremities willfully, able to wiggle all fingers and toes Alert and oriented x 3 Sensation grossly intact Skin: Skin is warm and dry. No abrasions, no lacerations Psychiatric: Behavior is appropriate for situation Nursing note and vitals reviewed. Current Patient Data Vital Signs Vital Signs Date Time Temp Pulse Resp B/P (MAP) Pulse Ox O2 Delivery O2 Flow Rate FiO2 02/14/20 10:37 66 20 108/64 (79) 95 Room Air 02/14/20 10:13 97.6 67 16 105/56 (72) 93 Room Air EKG EKG EKG obtained, normal sinus rhythm, no ischemic findings, no STEMI Radiology/Procedures Radiology/Procedures PROCEDURE: CT HEAD AND CERVICAL SPINE WO CT HEAD AND CERVICAL SPINE WO Date: 02/14/2020 10:17 AM Clinical Indication: fall, hit head, pain Comparison: 07/08/2019. Technique: 5 mm axial tomographic images were obtained of the head without contrast. These were viewed on brain and bone windows. CT imaging of the cervical spine was performed without contrast. Coronal and sagittal reformatted images were performed. One or more of the following dose reduction techniques were utilized: Automated exposure control (AEC), Adjustment of mA and/or kV according to patient size, Use of iterative reconstruction technique such as ASiR, CT scan done according to ALARA and image gently/image wisely HEAD FINDINGS: The brain parenchyma is normal in attenuation. No intra- or extra-axial mass or fluid collection. No acute hemorrhage. The ventricles are normal in size, shape, and morphology. The raymond-white matter junction is normal. The basilar cisterns are patent. The visualized paranasal sinuses are normal. The visualized portions of the orbits and globes are normal. The mastoid air cells are clear. No aggressive osseous lesion or fracture. CERVICAL SPINE FINDINGS: The cervical spine is normally aligned. No acute fracture. No aggressive lytic or blastic osseous lesion. Mild multilevel degenerative disc height loss. No high-grade spinal canal stenosis or neural foraminal narrowing. The thyroid gland is normal. No cervical lymphadenopathy. The visualized aerodigestive tract is unremarkable. The visualized lung apices are clear. IMPRESSION: 1. No acute intracranial process. 2. No acute osseous abnormality of the cervical spine. Electronically signed by: Terrance Sawyer MD (02/14/2020 10:59 AM) [id number] PROCEDURE: WRIST 3V LEFT WRIST 3V LEFT DATE: 02/14/2020 10:17 AM INDICATION: FOOSH, pain COMPARISON: None. FINDINGS: Bones: There is no evidence of acute fracture or dislocation. Joints: Mild degenerative changes of the first CMC joint. Miscellaneous: None. IMPRESSION: No evidence of acute fracture. Electronically signed by: Terrance Sawyer MD (02/14/2020 11:04 AM) [id number] Course & Med Decision Making Course & Med Decision Making Airway patent, breathing unlabored, vital signs grossly unremarkable Given history, exam, and workup, low suspicion for ICH, skull fx, spine fx or other acute spinal syndrome, PTX, pulmonary contusion, cardiac contusion, aortic/vertebral dissection, significant hemorrhage, extremity fracture. ER work-up reviewed with patient, grossly benign, no indication for further diagnostic intervention or work-up at this time Instructions given to follow-up with primary care physician up in upcoming 1 to 7 days. Discussed patient would be candidate for outpatient physical therapy or home health etc. Strict return precautions discussed with good understanding, all questions and concerns addressed prior to ER departure Discharged home in care of daughter who lives with patient and can provide close observation and care until patient seen in outpatient setting Dragon Disclaimer Dragon Disclaimer This electronic medical record was generated, in whole or in part, using a voice recognition dictation system. Departure Departure: Impression: Primary Impression: Fall Disposition: 01 HOME/RESIDENCE PRIOR TO ADM Condition: STABLE Referrals: DAINA ROBERTS (PCP) Patient Instructions: Fall Prevention and Home Safety Additional Instructions: You were evaluated in the Emergency Department today for your fall. Your evaluation suggests no acute abnormalities which require further intervention at this time. Thank you for taking your previously prescribed antibiotics as instructed to completion for your UTI I would continue supportive care measures that you are educated on today such as icing and Tylenol use for pain as needed Please follow-up with your primary care physician in upcoming 1 to 7 days. I think you would be a candidate for outpatient physical therapy with consideration for home health versus other assistance. Return to the ED immediately if you develop any of the following problems: - Leaking urine or difficulty urinating; - Inability to control your bowels; - New numbness or weakness in your legs or numbness between your legs; - Inability to walk - Fever It was a pleasure taking care of you today at [facility] ER and I hope you get better soon! Justification of Admission: Justification of Admission: Justification of Admission Dx: N/A RUTH JACOBS DO Feb 14, 2020 10:19
--- NOTE | 2020-02-14 10:24 | EKG ---
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
--- NOTE | 2020-02-14 11:02 | RAD ---
CT HEAD AND CERVICAL SPINE WO Date: 02/14/2020 10:17 AM Clinical Indication: fall, hit head, pain Comparison: 07/08/2019. Technique: 5 mm axial tomographic images were obtained of the head without contrast. These were viewed on brain and bone windows. CT imaging of the cervical spine was performed without contrast. Coronal and sagittal reformatted images were performed. One or more of the following dose reduction techniques were utilized: Automated exposure control (AEC), Adjustment of mA and/or kV according to patient size, Use of iterative reconstruction technique such as ASiR, CT scan done according to ALARA and image gently/image wisely HEAD FINDINGS: The brain parenchyma is normal in attenuation. No intra- or extra-axial mass or fluid collection. No acute hemorrhage. The ventricles are normal in size, shape, and morphology. The raymond-white matter junction is normal. The basilar cisterns are patent. The visualized paranasal sinuses are normal. The visualized portions of the orbits and globes are normal. The mastoid air cells are clear. No aggressive osseous lesion or fracture. CERVICAL SPINE FINDINGS: The cervical spine is normally aligned. No acute fracture. No aggressive lytic or blastic osseous lesion. Mild multilevel degenerative disc height loss. No high-grade spinal canal stenosis or neural foraminal narrowing. The thyroid gland is normal. No cervical lymphadenopathy. The visualized aerodigestive tract is unremarkable. The visualized lung apices are clear. IMPRESSION: 1. No acute intracranial process. 2. No acute osseous abnormality of the cervical spine. Electronically signed by: Terrance Sawyer MD (02/14/2020 10:59 AM) [id number]
--- NOTE | 2020-02-14 11:07 | RAD ---
WRIST 3V LEFT DATE: 02/14/2020 10:17 AM INDICATION: FOOSH, pain COMPARISON: None. FINDINGS: Bones: There is no evidence of acute fracture or dislocation. Joints: Mild degenerative changes of the first CMC joint. Miscellaneous: None. IMPRESSION: No evidence of acute fracture. Electronically signed by: Terrance Sawyer MD (02/14/2020 11:04 AM) [id number]
[2020-02-14 11:11] VITALS: BP 110/59
== END 2020-02-14 11:25 | disposition home or self-care (01) ==
LOC: ER 10:09
DX: S69.92XA Unspecified injury of left wrist, hand and finger(s), initial encounter (principal); F41.9 Anxiety disorder, unspecified; M19.90 Unspecified osteoarthritis, unspecified site; F31.9 Bipolar disorder, unspecified; J44.9 Chronic obstructive pulmonary disease, unspecified; I11.0 Hypertensive heart disease with heart failure; I50.9 Heart failure, unspecified; E11.9 Type 2 diabetes mellitus without complications; E78.00 Pure hypercholesterolemia, unspecified; F17.210 Nicotine dependence, cigarettes, uncomplicated; Z88.0 Allergy status to penicillin; Z88.4 Allergy status to anesthetic agent; Z88.8 Allergy status to other drugs, medicaments and biological substances; Z88.5 Allergy status to narcotic agent; W18.39XA Other fall on same level, initial encounter; Y93.89 Activity, other specified; Y92.89 Other specified places as the place of occurrence of the external cause; Y99.8 Other external cause status
CPT/HCPCS: 70450; 72125; 73110; 93005; 99285

== ENCOUNTER 2020-06-10 04:03 | Emergency (ER) | payer OTHER, MEDICAID ==
[~2020-06-10] VITALS: Ht 167.6 cm; Wt 97.6 kg
--- NOTE | 2020-06-10 05:11 | PHYS DOC ---
Past History Past Medical History: Dementia, Hypertension, UTI Additional Past Medical Histor: cellulitis (RUTH JACOBS DO) Past Surgical History: Cholecystectomy (RUTH JACOBS DO) Smoking: Cigarettes Alcohol Use: None Drug Use: None (RUTH JACOBS DO) Adult General Chief Complaint Chief Complaint: MECHANICAL FALL HPI HPI Patient is a 74-year-old female who presents via EMS for falls. Patient lives at home with daughter, reportedly suffered an observed fall earlier this evening when patient was found to be weaker than usual and slid out of her recliner onto ground, did not hit head without any reported loss of consciousness observed. EMS crew was called to scene to assist getting patient up off the floor, after thorough evaluation no indication for transport to ER for evaluation and patient was left at home with continued care and watch by her daughter. Nonetheless, later on in the evening shortly prior to arrival, patient suffered another unwitnessed ground-level fall. Patient states that she " does not think" she hit her head although she cannot totally recount what happened, denies any prodromal symptoms. Reports " I just feel weak all over" for past 1 week. No fever, COVID-19 contact, chest pain, shortness of breath, abdominal pain, any known urinary symptoms or other motor or sensory changes. Given second unwitnessed fall, daughter was concerned about patient's ongoing weakness and high fall risk prompting her to call EMS for transport to our facility for evaluation (RUTH JACOBS DO) Review of Systems Review of Systems Fourteen body systems of review of systems have been reviewed. See HPI for pertinent positives and negative responses, other arredondo all other systems are negative, non-pertinent or non-contributory (RUTH JACOBS DO) Allergies Allergies Allergies Coded Allergies Type Severity Reaction Last Updated Verified Penicillins Allergy Intermediate 06/10/20 Yes procaine Allergy Intermediate 06/10/20 Yes quetiapine Allergy Intermediate 06/10/20 Yes morphine Allergy Mild Unknown 06/10/20 Yes haloperidol Adverse Reaction Intermediate muscle spasms 06/10/20 Yes (RUTH JACOBS DO) Physical Exam Physical Exam Constitutional: Pt is oriented to person, place, and time. Pt appears well-developed and well-no urished. HEENT: Head: Normocephalic and atraumatic. External ears unremarkable, negative page sign Conjunctivae and EOM are normal. Pupils are equal, round, and reactive to light. Oropharynx is clear and dry. No hematomas or lacerations or abrasions to face or scalp OP clear, no blood, no malocclusion, dentition intact Nares clear, no nasal septal hematoma Midface stable Neck: C-spine midline nontender, no step-offs Cardiovascular: Normal rate, regular rhythm and normal heart sounds. Trace edema present to bilateral lower extremities Pulmonary/Chest: Effort normal and breath sounds normal. No respiratory distress. No wheezes. CTA bilaterally Abdominal: Soft. Bowel sounds are normal. Pt exhibits no distension. There is no tenderness. Musculoskeletal: Tenderness present to lateral and medial malleoli to right ankle without any other bony tenderness to extremities, no deformities, full ROM extremities Chest wall stable Pelvis stable and non-tender No vertebral TTP and spine without stepoffs Neurological: Pt is alert and oriented to person, place, and time. Moving all extremities willfully, able to wiggle all fingers and toes Alert and oriented x 3 Sensation grossly intact Skin: Skin is warm and dry. No abrasions, no lacerations Psychiatric: Behavior is appropriate for situation (RUTH JACOBS DO) Current Patient Data Vital Signs Vital Signs Date Time Temp Pulse Resp B/P (MAP) Pulse Ox O2 Delivery O2 Flow Rate FiO2 06/10/20 04:17 97.7 54 16 107/50 (69) 96 Room Air Lab Results Laboratory Tests Test 06/10/20 05:15 06/10/20 06:25 White Blood Count 9.2 x10^3/uL (4.0-11.0) Red Blood Count 3.60 x10^6/uL (3.50-5.40) Hemoglobin 12.3 g/dL (12.0-15.5) Hematocrit 36.8 % (36.0-47.0) Mean Corpuscular Volume 102 fL (79-100) Mean Corpuscular Hemoglobin 34 pg (25-35) Mean Corpuscular Hemoglobin Concent 33 g/dL (31-37) Red Cell Distribution Width 12.6 % (11.5-14.5) Platelet Count 185 x10^3/uL (140-400) Neutrophils (%) (Auto) 63 % (31-73) Lymphocytes (%) (Auto) 24 % (24-48) Monocytes (%) (Auto) 11 % (0-9) Eosinophils (%) (Auto) 2 % (0-3) Basophils (%) (Auto) 1 % (0-3) Neutrophils # (Auto) 5.8 x10^3uL (1.8-7.7) Lymphocytes # (Auto) 2.2 x10^3/uL (1.0-4.8) Monocytes # (Auto) 1.0 x10^3/uL (0.0-1.1) Eosinophils # (Auto) 0.2 x10^3/uL (0.0-0.7) Basophils # (Auto) 0.1 x10^3/uL (0.0-0.2) Sodium Level 140 mmol/L (136-145) Potassium Level 4.1 mmol/L (3.5-5.1) Chloride Level 103 mmol/L (98-107) Carbon Dioxide Level 31 mmol/L (21-32) Anion Gap 6 (6-14) Blood Urea Nitrogen 15 mg/dL (7-20) Creatinine 1.0 mg/dL (0.6-1.0) Estimated GFR (Cockcroft-Gault) 53.9 BUN/Creatinine Ratio 15 (6-20) Glucose Level 112 mg/dL (70-99) Calcium Level 8.8 mg/dL (8.5-10.1) Total Bilirubin 1.2 mg/dL (0.2-1.0) Aspartate Amino Transf (AST/SGOT) 22 U/L (15-37) Alanine Aminotransferase (ALT/SGPT) 35 U/L (14-59) Alkaline Phosphatase 81 U/L (46-116) Troponin I Quantitative < 0.017 ng/mL (0-0.055) Total Protein 6.5 g/dL (6.4-8.2) Albumin 3.5 g/dL (3.4-5.0) Albumin/Globulin Ratio 1.2 (1.0-1.7) Urine Collection Type U cath Urine Color Yellow Urine Clarity Clear Urine pH 6.0 Urine Specific [place] 1.010 Urine Protein Neg (NEG-TRACE) Urine Glucose (UA) Neg mg/dL (NEG) Urine Ketones (Stick) Neg mg/dL (NEG) Urine Blood Neg (NEG) Urine Nitrite Neg (NEG) Urine Bilirubin Neg (NEG) Urine Urobilinogen Dipstick 0.2 mg/dL (0.2 mg/dL) Urine Leukocyte Esterase Neg (NEG) Urine RBC 0 /HPF (0-2) Urine WBC 0 /HPF (0-4) Urine Squamous Epithelial Cells Occ /LPF Urine Bacteria 0 /HPF (0-FEW) (RUTH JACOBS DO) EKG EKG EKG ordered and interpreted by myself at 0506 hrs. as sinus rhythm at 51 bpm, unremarkable intervals, left axis deviation, no other acute ischemic findings, no STEMI (RUTH JACOBS DO) Radiology/Procedures Radiology/Procedures INDICATION: Reason: unwitnessed fall / Spl. Instructions: / History: COMPARISON: February 14, 2020 TECHNIQUE: Axial CT images obtained through the head without intravenous contrast. One or more of the following individualized dose reduction techniques were utilized for this examination: 1. Automated exposure control; 2. Adjustment of the mA and/or kV according to patient size; 3. Use of iterative reconstruction technique. FINDINGS: 18 mm high density focus is seen just superior to the left mastoid air cells. No midline shift. Basal cisterns patents. Ventricles and sulci are globally prominent. No acute osseous abnormality. Orbits and paranasal sinuses unremarkable. Scattered foci of low attenuation within the white matter. IMPRESSION: 1. There is a focus of high density seen just superior to the left mastoid air cells but this is likely secondary to volume averaging artifact. A definite site of hemorrhage is not seen. 2. Scattered regions of low attenuation within the white matter. Non-specific in nature but frequently secondary to chronic small vessel ischemic disease. 3. Prominence of ventricles and sulci which is frequently secondary to age related volume loss. Electronically signed by: Konrad Cox MD (06/10/2020 5:17 AM) DESKTOP- [id number] (RUTH JACOBS DO) Heart Score HEART Score for Chest Pain: HEART Score for Chest Pain Response (Comments) Value History Slighlty/Non-Suspicious 0 ECG Normal 0 Age > 65 2 Risk Factors >3 Risk Factors or Hx CAD 2 Troponin < Normal Limit 0 Total 4 Risk Factors: Risk Factors: DM, Current or recent (<one month) smoker, HTN, HLP, family history of CAD, obesity. Risk Scores: Risk Factors: DM, Current or recent (<one month) smoker, HTN, HLP, family history of CAD, obesity. (RUTH JACOBS DO) Course & Med Decision Making Course & Med Decision Making Pertinent Labs and Imaging studies reviewed. (See chart for details) Patient here for weakness and recurrent falls. Patient still in middle of diagnostic work-up at the end of my shift. Comprehensive signout given to oncoming physician. Please defer to their documentation regarding future diagnostic work-up findings, intervention and dispo of patient (RUTH JACOBS DO) Course & Med Decision Making I have received signout on the patient's emergency department care from Dr. Jacobs. We discussed the history, physical exam findings, completed and pending laboratory results and imaging studies. We have also discussed the current treatment plan and expected clinical course. Please refer to further update notes for additional information regarding the patient's final diagnosis and disposition. In brief patient is a 74-year-old female who presents with a chief complaint of generalized weakness and recent falls. She states that she slid out of her recliner earlier this evening. Denies striking her head. Denies any prodromal symptoms. CT head imaging was obtained and was grossly unremarkable. Basic labs were obtained were also gross unremarkable. Urinalysis without evidence of infection. Per previous provider he did speak with the patient and daughter who both feel comfortable with her going home. I did offer hospitalization for frequent falls and generalized weakness however the patient states that her daughter can watch her closely at home and she would prefer outpatient monitoring. Overall I do feel this is reasonable. My examination she is alert and oriented x3. Daughter was present at bedside to take the patient home. Strict return precautions were discussed and understood. Stable for discharge. I provided verbal discharge instructions regarding their emergency department diagnosis. If you had any diagnostic studies ( Labs or Xray's, CAT scan, Ultrasound ) have your PCP (Primary Care Physician) review them with you since there may be results that require further follow up or investigation. Prognosis, expected clinical course, and return precautions were reviewed. I answered the patients questions and instructed them to return if any new or worsening symptoms develop. The patient expressed understanding of the instructions and reported that all of their questions had been answered. (LILLIAN WLAKER DO) Dragon Disclaimer Dragon Disclaimer This electronic medical record was generated, in whole or in part, using a voice recognition dictation system. (RUTH JACOBS DO) Departure Departure: Impression: Primary Impression: Generalized weakness Additional Impression: Falls Disposition: 01 DC HOME SELF CARE/HOMELESS Condition: STABLE Referrals: DAINA ROBERTS (PCP) Patient Instructions: Fall Prevention and Home Safety Additional Instructions: Please return emergency department at any time should her symptoms not improve or worsen. Please follow-up with your primary care physician in the next 2 to 3 days. Problem Qualifiers Additional Impression: Falls Encounter type: initial encounter Qualified Codes: W19.XXXA - Unspecified fall, initial encounter RUTH JACOBS DO Jun 10, 2020 05:11 LILLIAN WALKER DO Jun 10, 2020 07:47
--- NOTE | 2020-06-10 05:19 | RAD ---
INDICATION: Reason: unwitnessed fall / Spl. Instructions: / History: COMPARISON: February 14, 2020 TECHNIQUE: Axial CT images obtained through the head without intravenous contrast. One or more of the following individualized dose reduction techniques were utilized for this examinat ion: 1. Automated exposure control; 2. Adjustment of the mA and/or kV according to patient size; 3 . Use of iterative reconstruction technique. FINDINGS: 18 mm high density focus is seen just superior to the left mastoid air cells. No midline shift. Basal cisterns patents. Ventricles and sulci are globally prominent. No acute osseous abnormality. Orbits and paranasal sinuses unremarkable. Scattered foci of low attenuation within the white matter. IMPRESSION: 1. There is a focus of high density seen just superior to the left mastoid air cells but this is li [place] secondary to volume averaging artifact. A definite site of hemorrhage is not seen. 2. Scattered regions of low attenuation within the white matter. Non-specific in nature but frequen tly secondary to chronic small vessel ischemic disease. 3. Prominence of ventricles and sulci which is frequently secondary to age related volume loss. Electronically signed by: Konrad Cox MD (06/10/2020 5:17 AM) [id number]
--- NOTE | 2020-06-10 05:32 | RAD ---
INDICATION: Reason: weakness / Spl. Instructions: / History: COMPARISON: July 21, 2019 FINDINGS: Single view of chest obtained. Cardiac silhouette is similar prior. Mildly enlarged. Calcific atherosclerosis. Limited assessment le ft lung base secondary to lack of lateral view. No definite new region of airspace consolidation. IMPRESSION: * No definite new region of airspace consolidation. Electronically signed by: Konrad Cox MD (06/10/2020 5:29 AM) [id number]
--- NOTE | 2020-06-10 05:34 | RAD ---
INDICATION: Reason: right lat malleoli pain / Spl. Instructions: / History: COMPARISON: None. IMPRESSION: Right ankle: 3 views obtained. Soft tissue swelling is seen both medially and laterally at the ankle. A definite acute fracture line is not visualized. No evidence of dislocation at the ankle. Plantar c alcaneal spur. Degenerative changes. Joint effusion is suspected. Electronically signed by: Konrad Cox MD (06/10/2020 5:32 AM) [id number]
[2020-06-10 05:53] LABS: BASO # 0.1 x10^3/uL (0.0-0.2); BASO % 1 % (0-3); EOS # 0.2 x10^3/uL (0.0-0.7); EOS % 2 % (0-3); HEMATOCRIT 36.8 % (36.0-47.0); HEMOGLOBIN 12.3 g/dL (12.0-15.5); LYMPH # 2.2 x10^3/uL (1.0-4.8); LYMPH % 24 % (24-48); MEAN CORPUSCULAR HEMOGLOBIN 34 pg (25-35); MEAN CORPUSCULAR HGB CONC 33 g/dL (31-37); MEAN CORPUSCULAR VOLUME 102 fL (79-100); MONO % 11 % (0-9); NEUT # 5.8 x10^3uL (1.8-7.7); NEUT % 63 % (31-73); PLATELET COUNT 185 x10^3/uL (140-400); RED CELL DISTRIBUTION WIDTH 12.6 % (11.5-14.5); WHITE BLOOD COUNT 9.2 x10^3/uL (4.0-11.0)
[2020-06-10 06:05] LABS: CALCIUM 8.8 mg/dL (8.5-10.1); GFR 53.9; POTASSIUM 4.1 mmol/L (3.5-5.1)
[2020-06-10] MEDS ORDERED: GABA-587 PO (06:16)
[2020-06-10 06:17] LABS: ALBUMIN 3.5 g/dL (3.4-5.0); ALBUMIN/GLOBULIN RATIO 1.2 (1.0-1.7); TOTAL BILIRUBIN 1.2 mg/dL (0.2-1.0); TOTAL PROTEIN 6.5 g/dL (6.4-8.2)
[2020-06-10] MEDS ORDERED: BENZ1TAB5 PO (06:21)
[2020-06-10] MEDS ORDERED: SITA50TA PO (06:21)
--- NOTE | 2020-06-10 06:23 | EKG ---
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
[2020-06-10 07:43] LABS: BACTERIA,URINE 0 /HPF (0-FEW); BILIRUBIN,URINE NEG (NEG); CLARITY,URINE CLEAR; COLOR,URINE YELLOW; GLUCOSE,URINE NEG (NEG); NITRITE,URINE NEG (NEG); RBC,URINE 0 /HPF (0-2); SQUAMOUS EPITHELIAL CELL,UR OCC /LPF; UROBILINOGEN,URINE 0.2 mg/dL (0.2 mg/dL); WBC,URINE 0 /HPF (0-4)
[2020-06-10 07:49] VITALS: BP 134/65
== END 2020-06-10 08:20 | disposition home or self-care (01) ==
LOC: ER 04:03
DX: R53.1 Weakness (principal); I10 Essential (primary) hypertension; M25.571 Pain in right ankle and joints of right foot; F03.90 Unspecified dementia, unspecified severity, without behavioral disturbance, psychotic disturbance, mood disturbance, and anxiety; F17.210 Nicotine dependence, cigarettes, uncomplicated; Z90.49 Acquired absence of other specified parts of digestive tract; Z88.0 Allergy status to penicillin; Z88.6 Allergy status to analgesic agent; Z88.8 Allergy status to other drugs, medicaments and biological substances
CPT/HCPCS: 36415; 70450; 71045; 73610; 80053; 81001; 84484; 85025; 93005; 99285

== ENCOUNTER 2020-08-19 15:43 | Emergency (ER) | payer OTHER, MEDICAID ==
[~2020-08-19] VITALS: Ht 167.6 cm; Wt 97.6 kg
[~2020-08-19 15:43] MED LIST changes: +BENZ1TAB5 PO; -CLIN300C8 PO; +CLIN300C9 PO; +GABA-587 PO; -LISI-338 PO; +LISI-517 PO; +SITA50TA PO
[2020-08-19 15:57] VITALS: BP 120/53
--- NOTE | 2020-08-19 16:15 | PHYS DOC ---
Past History Past Medical History: Dementia, Hypertension, UTI Additional Past Medical Histor: cellulitis Past Surgical History: Cholecystectomy Smoking: Cigarettes Alcohol Use: None Drug Use: None Adult General Chief Complaint Chief Complaint: SHORTNESS OF BREATH HPI HPI Patient is a 74-year-old female who presents to the emergency room complaining of cough and chest pain. Patient states that this started this morning. She states her daughter who lives with her is also been ill since and they believe that she might have novel coronavirus 19. She has not been tested for this. Patient states that she has quite a bit of cough and anytime she coughs her chest hurts. She denies any chest pain otherwise. She does not have any shortness of breath. She does believe that she has been diagnosed with COPD before but does not take any medications for this. She denies any known fevers. She does not have any abdominal symptoms. She denies any change of taste or smell. Review of Systems Review of Systems Complete ROS is negative unless otherwise documented in HPI Allergies Allergies Allergies Coded Allergies Type Severity Reaction Last Updated Verified Penicillins Allergy Intermediate 06/10/20 Yes procaine Allergy Intermediate 06/10/20 Yes quetiapine Allergy Intermediate 06/10/20 Yes morphine Allergy Mild Unknown 06/10/20 Yes haloperidol Adverse Reaction Intermediate muscle spasms 06/10/20 Yes Physical Exam Physical Exam General: Awake, alert, NAD. Well Nourished, well hydrated. Cooperative HEENT: Atraumatic, EOMI, PERRL, airway patent, moist oral mucosa Neck: Supple, trachea midline Respiratory: Decreased breath sounds bilaterally, normal effort, no wheezing/crackles CV: RRR, no murmur, cap refill <2 GI: Soft, nondistended, nontender, no masses MSK: No obvious deformities Skin: Warm, dry, intact Neuro: A&O x3, speech NL, sensory and motor grossly intact, no focal deficits Psych: Normal affect, normal mood, not suicidal or homicidal Current Patient Data Vital Signs Vital Signs Date Time Temp Pulse Resp B/P (MAP) Pulse Ox O2 Delivery O2 Flow Rate FiO2 08/19/20 15:57 99.5 79 26 120/53 (75) 97 EKG EKG [] Radiology/Procedures Radiology/Procedures [] Heart Score Risk Factors: Risk Factors: DM, Current or recent (<one month) smoker, HTN, HLP, family history of CAD, obesity. Risk Scores: Risk Factors: DM, Current or recent (<one month) smoker, HTN, HLP, family history of CAD, obesity. Course & Med Decision Making Course & Med Decision Making Pertinent Labs and Imaging studies reviewed. (See chart for details) Patient is a 74-year-old female who presents to the emergency room with cough and chest pain. At this time there is concern for the novel coronavirus 19. Risk stratifying work-up was ordered including chest x-ray, d-dimer, CPK, CRP, LDH, troponin, ferritin, CBC, CMP. Due to concern of COVID-19 I have discussed the importance of quarantining with the patient. I have discussed with them that they should avoid grocery stores, gas stations, pharmacies, work, friends/family's homes. I discussed with him that it is important that they do not expose themselves to anyone else for the next 14 days. Chest x-ray does not show infiltrates at this time and patient does not be treated with empiric antibiotics. I have discussed with the patient the course of the illness and we have discussed strict return precautions. At this time patient does not need admission as they are stable, however it is possible that they may get worse over the next few days and we have discussed the importance of coming back if they develop severe shortness of breath or any other symptoms that they are con cerned about. Patient's test results and vitals while in the ED were fully reviewed and discussed with the patient. Patient is stable and at this time does not need admission to the hospital. We have discussed strict return precautions and the importance of following up with their Primary Care Physician. Patient stated understanding and was given an opportunity to ask any questions. Dragon Disclaimer Dragon Disclaimer This electronic medical record was generated, in whole or in part, using a voice recognition dictation system. Departure Departure: Impression: Primary Impression: Acute bronchitis Additional Impression: Suspected 2019 novel coronavirus infection Disposition: 01 DC HOME SELF CARE/HOMELESS Condition: STABLE Referrals: DAINA ROBERTS (PCP) Patient Instructions: Shortness of Breath Additional Instructions: Thank you for visiting [facility]. We appreciate you trusting us with your care. If any additional problems come up please don't hesitate to return to visit us. Follow up with your primary care provider so they can plan additional care if needed and know about the problem that you had today. If symptoms worsen come back to the Emergency Department. Any concerning symptoms that start such as chest pain, shortness of air, weakness or numbness on one side of the body, running high fevers or any other concerning symptoms return to the ER. You have a viral syndrome which may include symptoms like muscle aches, fevers, chills, runny nose, cough, sneezing, sore throat, nausea, vomiting, or diarrhea. One of the potential viruses that you may have is SARS-CoV-2, the virus that causes COVID-19, also known as the Coronavirus. You are just as likely to have a different viral infection such as the common cold, flu, etc. Most patients with the Coronavirus have mild symptoms and recover on their own. Resting, staying hydrated, and sleep based on known cases can be helpful. As of todays visit, you are well enough to go home and treat your symptoms with oral fluids and over the counter medications. Coronavirus testing is not performed on most people with mild symptoms who are being discharged from the emergency department. If Coronavirus testing was performed today the results will not be available for possibly up to 3-4 days. If your result is positive you will be contacted. Please follow the following precautions at home: 1. Stay home except to get medical care. 2. As advised by the CDC, we recommend that you stay in your home and minimize contact with other people. We do not want you to spread the infection. 3. Those who are older or have significant medical issues may have more severe symptoms from this infection. We recommend self-isolation FOR AT LEAST 7 DAYS after your 1st day of symptoms. AFTER you feel better please wait AT LEAST ANOTHER WEEK before returning to regular activities and being around other people. 4. IF you become sicker and have difficulty breathing, chest pain, are unable to eat/drink, severe vomiting, diarrhea, or weakness you may need to return to the Emergency Department. 5. You should restrict activities outside of your home, except for getting medical care. DO NOT go to work, school, or public areas. Avoid using public transportation, ride sharing, or taxis. 6. Separate yourself from other people in your home. You should use a separate bathroom if possible. 7. Avoid sharing personal household items such as dishes, cups, eating utensils, towels, etc. 8. Clean all high touch surfaces every day (door knobs, counter tops, etc). Use a household cleaning spray or wipe per label instructions. 9. Clean your hands often. Wash your hands with soap and water for at least 20 seconds. 10. Cover your mouth and nose when you cough or sneeze. 11. Throw used tissues in the trash and immediately wash your hands. For additional resources please visit the CDC website or the [facility] ([phone]), you may also call 211 for further information. Scripts Guaifenesin/Codeine Phosphate (GUAIFENESIN-CODEINE SYRUP) 118 Ml Liquid 5 ML PO Q6HRS PRN for COUGH, #120 ML Prov: SONY LANDERS MD 08/19/20 Prednisone (PREDNISONE) 50 Mg Tablet 1 TAB PO DAILY for sob, #5 TAB You received this medication in the emergency room today. You will starting your next dose tomorrow. Prov: SONY LANDERS MD 08/19/20 Problem Qualifiers SONY LANDERS MD Aug 19, 2020 16:15
[2020-08-19 16:46] LABS: BASO % 1 % (0-3); EOS # 0.1 x10^3/uL (0.0-0.7); EOS % 1 % (0-3); HEMATOCRIT 36.2 % (36.0-47.0); HEMOGLOBIN 12.2 g/dL (12.0-15.5); LYMPH # 0.6 x10^3/uL (1.0-4.8); LYMPH % 10 % (24-48); MEAN CORPUSCULAR HEMOGLOBIN 34 pg (25-35); MEAN CORPUSCULAR HGB CONC 34 g/dL (31-37); MEAN CORPUSCULAR VOLUME 100 fL (79-100); MONO # 0.9 x10^3/uL (0.0-1.1); MONO % 16 % (0-9); NEUT # 4.3 x10^3uL (1.8-7.7); NEUT % 73 % (31-73); PLATELET COUNT 180 x10^3/uL (140-400); RED BLOOD COUNT 3.63 x10^6/uL (3.50-5.40); RED CELL DISTRIBUTION WIDTH 12.6 % (11.5-14.5); WHITE BLOOD COUNT 5.9 x10^3/uL (4.0-11.0)
[2020-08-19 16:50] LABS: CALCIUM 8.7 mg/dL (8.5-10.1); CREATININE 0.8 mg/dL (0.6-1.0); GFR 69.7; POTASSIUM 4.2 mmol/L (3.5-5.1)
--- NOTE | 2020-08-19 16:59 | RAD ---
Chest AP portable 08/19/2020. Reason for exam: Shortness of breath. Comparison is made with a study of 06/10/2020. No definite infiltrate is seen. There may be greater retrocardiac opacity on the left, and an area of infiltrate cannot be excluded here. No pleural fluid is evident. Heart size is normal. IMPRESSION: No definite acute findings. Questionable retrocardiac left lower lobe opacity. Electronically signed by: Chago Chow Jr., MD (08/19/2020 4:57 PM) [id number]
[2020-08-19 17:03] LABS: ALBUMIN 3.2 g/dL (3.4-5.0); ALBUMIN/GLOBULIN RATIO 0.9 (1.0-1.7); C REACTIVE PROTEIN 12.4 mg/L (0-3.3); TOTAL BILIRUBIN 0.5 mg/dL (0.2-1.0); TOTAL PROTEIN 6.8 g/dL (6.4-8.2)
--- NOTE | 2020-08-19 17:17 | EKG ---
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
[2020-08-19] MEDS ORDERED: GUAI118L13 PO (17:23)
[2020-08-19] MEDS ORDERED: PRED50TA PO (17:23)
[2020-08-19] MEDS ORDERED: DEXAMETHASONE SOD PHOS 10 MG/ML VIAL. IV ONE (17:30)
[2020-08-19] MEDS ORDERED: guaiFENesin/CODEINE 100mg/10mg 5 ML LIQUID PO PRN (17:30)
== END 2020-08-19 18:05 | disposition home or self-care (01) ==
LOC: ER 15:43
DX: U07.1 COVID-19 (principal); J20.9 Acute bronchitis, unspecified; F03.90 Unspecified dementia, unspecified severity, without behavioral disturbance, psychotic disturbance, mood disturbance, and anxiety; I10 Essential (primary) hypertension; F17.210 Nicotine dependence, cigarettes, uncomplicated; Z87.440 Personal history of urinary (tract) infections; Z88.0 Allergy status to penicillin; Z88.4 Allergy status to anesthetic agent; Z88.5 Allergy status to narcotic agent; Z88.8 Allergy status to other drugs, medicaments and biological substances
CPT/HCPCS: 36415; 71045; 80053; 82550; 83605; 83615; 83880; 84484; 85025; 86140; 93005; 96374; 99285; C9803; J1100; U0003

== ENCOUNTER 2020-11-05 16:26 | Emergency (ER) | payer OTHER, MEDICAID ==
[~2020-11-05] VITALS: Ht 167.6 cm; Wt 97.6 kg
[~2020-11-05 16:26] MED LIST changes: +GUAI118L13 PO; +PRED50TA PO
[2020-11-05] MEDS ORDERED: KETOROLAC 15 MG/ML VIAL. IVP ONE (16:45)
[2020-11-05] MEDS ORDERED: IOHEXOL 350 MG/ML 100 ML VIAL. IV ONE (17:00)
--- NOTE | 2020-11-05 17:07 | PHYS DOC ---
Past History Past Medical History: Dementia, Hypertension, UTI Additional Past Medical Histor: cellulitis (PEDRO TRUJILLO MD) Past Surgical History: Cholecystectomy (PEDRO TRUJILLO MD) Smoking: Cigarettes Alcohol Use: None Drug Use: None (PEDRO TRUJILLO MD) General Adult EDM: Chief Complaint: RIB PAIN HPI: HPI: Patient is a 35-year-old female coming in via EMS for right rib pain. Patient had a fall yesterday and family take her to [facility]. There she had a head CT done which was negative and lab work. She was sent home. Patient states over the past week she has had intermittent episodes of dizziness. She describes as when she gets up or stands up quickly she feels like things are spinning, yesterday it caused her to fall into a bookshelf. Denies any blood thinner use. States there was no loss of consciousness yesterday. Otherwise has been well. (PEDRO TRUJILLO MD) Review of Systems: Review of Systems: All other systems within normal limits except for as noted in the HPI (PEDRO TRUJILLO MD) Current Medications: Current Meds: Current Medications Medications (Trade) Dose Ordered Sig/Zena Start Time Stop Time Status Last Admin Dose Admin Iohexol (Omnipaque 350 Mg/ml) 100 ml 1X ONCE 11/05/20 17:00 11/05/20 17:01 UNV Ketorolac Tromethamine (Toradol 15mg Vial) 15 mg 1X ONCE 11/05/20 16:45 11/05/20 16:46 UNV (PEDRO TRUJILLO MD) Allergies: Allergies: Allergies Coded Allergies Type Severity Reaction Last Updated Verified Penicillins Allergy Intermediate 06/10/20 Yes procaine Allergy Intermediate 06/10/20 Yes quetiapine Allergy Intermediate 06/10/20 Yes morphine Allergy Mild Unknown 06/10/20 Yes haloperidol Adverse Reaction Intermediate muscle spasms 06/10/20 Yes (PEDRO TRUJILLO MD) Physical Exam: PE: Constitutional: Well developed, well nourished, no acute distress, non-toxic appearance. [] HENT: Normocephalic, atraumatic, bilateral external ears normal, nose normal. [] Eyes: PERRLA, conjunctiva normal, no discharge. [] Neck: No rigidity, supple, no stridor. [] Cardiovascular: Regular rate and rhythm, brisk cap refill [] Lungs & Thorax: Non labored symmetric respirations, no tachypnea or respiratory distress. Tenderness over right ribs [] Abdomen: Soft, nondistended. Skin: Warm, dry, no erythema, no rash. [] Back: Unremarkable, no spine tenderness step-off or deformity Extremities: No deformities, range of motion grossly intact, no lower extremity edema [] Neurologic: Alert and oriented X 3, no focal deficits noted. [] Psychologic: Affect normal, judgement normal, mood normal. [] (PEDRO TRUJILLO MD) Current Patient Data: Vital Signs: Vital Signs Date Time Temp Pulse Resp B/P (MAP) Pulse Ox O2 Delivery O2 Flow Rate FiO2 11/05/20 16:32 97.6 69 16 107/79 (88) 95 Room Air (PEDRO TRUJILLO MD) EKG: EKG: Sinus rhythm with left axis deviation, heart rate 69 bpm, no ST elevation or depression, diffuse T wave flattening (PEDRO TRUJILLO MD) Radiology/Procedures: Radiology/Procedures: [] (PEDRO TRUJILLO MD) Radiology/Procedures: QRS Compliance Statement: One or more of the following individualized dose reduction techniques were utilized for this examination: 1. Automated exposure control 2. Adjustment of the mA and/or kV according to patient size 3. Use of iterative reconstruction technique CTA CHEST_ABDOMEN_AND PELVIS 11/05/2020 5:40 PM INDICATION: Right-sided pain after fall COMPARISON: CT chest 07/11/2019 TECHNIQUE: Multiple axial CT images of the chest, abdomen and pelvis were obtained after the intravenous administration of 100 mL nonionic contrast. Coronal and sagittal reformats are provided. FINDINGS: Thyroid gland is normal in appearance. Precarinal lymph node with normal fatty hilum measures 10 mm right hilar lymph node measures 11 mm (series 4, image 54). Heart size within normal limits. There is no pericardial effusion. Thoracic aorta is normal in course and caliber with minor calcified plaque. There is adequate opacification of pulmonary arterial system. No filling defects within the pulmonary arteries to suggest pulmonary emboli. Minimal subpleural interstitial changes are identified within the lungs. No focal airspace consolidation. No pleural effusions or pneumothorax. There is minimal cortical irregularity involving the anterior right fourth rib which may represent a nondisplaced fracture. Liver, spleen, right adrenal gland, pancreas and kidneys are normal in appearance. No hydronephrosis or suspicious renal mass. Gallbladder surgically absent. There is a left adrenal nodule measuring 1.7 cm x 1.0 cm which is stable, indeterminate. Abdominal aorta is normal in caliber with mild calcified plaque. Small fat-containing left femoral hernia. Urinary bladder is within normal limits given degree of distention. Uterus and adnexa are normal by CT. Mild diverticulosis. No adjacent inflammation. Appendix is not definitively visualized. No pericecal inflammatory changes are identified. No suspicious osseous abnormality involving the pelvis. IMPRESSION: 1. No evidence for acute or chronic pulmonary embolism. 2. Minimal subpleural interstitial changes throughout the lungs may be chronic and associated with chronic interstitial edema or early interstitial lung disease. 3. Undulation of the anterior right fourth rib could represent a not assess fracture. 4. Left adrenal nodule measures 1.7 x 1.0 cm, indeterminate and stable. Electronically signed by: Lean Stern MD (11/05/2020 6:44 PM) [facility] (FOSTER GEORGE MD) Heart Score: C/O Chest Pain: N/A Risk Factors: Risk Factors: DM, Current or recent (<one month) smoker, HTN, HLP, family history of CAD, obesity. Risk Scores: Score 0 - 3: 2.5% MACE over next 6 weeks - Discharge Home Score 4 - 6: 20.3% MACE over next 6 weeks - Admit for Clinical Observation Score 7 - 10: 72.7% MACE over next 6 weeks - Early Invasive Strategies (PEDRO TRUJILLO MD) Course & Med Decision Making: Course & Med Decision Making Pertinent Labs and Imaging studies reviewed. (See chart for details) Called [facility]'s transfer line to confirm that she had a head CT done yesterday that was unremarkable. [] (PEDRO TRUJILLO MD) Course & Med Decision Making Patient care transferred to [place] at checkout awaiting CT. Patient awake alert no acute distress. Vital signs not concerning. EKG and troponin not concerning. D-dimer within normal limits. Laboratory analysis otherwise unremarkable. CT with no evidence of PE and minimal subpleural changes appearing chronic. Undulation of the anterior right fourth rib may represent a fracture but not obviously seen. Does have a left adrenal nodule measuring 1.7 times centimeter intermediate and stable. Patient given copy of report. Discussed all findings with patient and recommended follow-up with primary care physician first thing in the morning. Gave return precautions to the ED. Patient grateful, verbalized understanding and agreed with plan of discharge. (FOSTER GEORGE MD) Dragon Disclaimer: Dragon Disclaimer: This electronic medical record was generated, in whole or in part, using a voice recognition dictation system. (PEDRO TRUJILLO MD) Departure Departure: Impression: Primary Impression: Rib pain Additional Impressions: Fall Adrenal nodule Disposition: HOME / SELF CARE / HOMELESS Condition: GOOD Referrals: DAINA ROBERTS (PCP) Patient Instructions: Fall Prevention and Home Safety, Rib Contusion Additional Instructions: Please read all the attached information very carefully. You can use NSAIDs as allowed by your primary care physician, and tolerated as needed for pain control at home as well as lidocaine patches and ice. Please call your primary care physician first thing in the morning to update on ED visit and set up a follow- up as needed. Please come back to the ED with new or concerning symptoms as discussed. PEDRO TRUJILLO MD November 05, 2020 17:07 FOSTER GEORGE MD November 05, 2020 18:51
--- NOTE | 2020-11-05 17:11 | EKG ---
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
[2020-11-05] MEDS ORDERED: IV NORMAL SALINE 500ML 500 ML IV ONE (17:15)
[2020-11-05 17:16] LABS: BASO # 0.1 x10^3/uL (0.0-0.2); BASO % 1 % (0-3); EOS # 0.1 x10^3/uL (0.0-0.7); EOS % 1 % (0-3); HEMATOCRIT 36.1 % (36.0-47.0); HEMOGLOBIN 12.5 g/dL (12.0-15.5); LYMPH # 2.2 x10^3/uL (1.0-4.8); LYMPH % 22 % (24-48); MEAN CORPUSCULAR HEMOGLOBIN 35 pg (25-35); MEAN CORPUSCULAR HGB CONC 35 g/dL (31-37); MEAN CORPUSCULAR VOLUME 100 fL (79-100); MONO # 0.8 x10^3/uL (0.0-1.1); MONO % 8 % (0-9); NEUT # 6.7 x10^3uL (1.8-7.7); NEUT % 68 % (31-73); PLATELET COUNT 180 x10^3/uL (140-400); RED BLOOD COUNT 3.59 x10^6/uL (3.50-5.40); RED CELL DISTRIBUTION WIDTH 13.1 % (11.5-14.5); WHITE BLOOD COUNT 9.9 x10^3/uL (4.0-11.0)
[2020-11-05 17:35] LABS: ALBUMIN 3.7 g/dL (3.4-5.0); ALBUMIN/GLOBULIN RATIO 1.2 (1.0-1.7); CALCIUM 8.7 mg/dL (8.5-10.1); CREATININE 0.9 mg/dL (0.6-1.0); GFR 60.7; MAGNESIUM 1.9 mg/dL (1.8-2.4); PHOSPHORUS 3.8 mg/dL (2.6-4.7); POTASSIUM 4.6 mmol/L (3.5-5.1); TOTAL BILIRUBIN 0.7 mg/dL (0.2-1.0); TOTAL PROTEIN 6.9 g/dL (6.4-8.2)
[2020-11-05 18:45] VITALS: BP 131/66
--- NOTE | 2020-11-05 18:46 | RAD ---
PQRS Compliance Statement: One or more of the following individualized dose reduction techniques were utilized for this examinat ion: 1. Automated exposure control 2. Adjustment of the mA and/or kV according to patient size 3. Use of iterative reconstruction technique CTA CHEST_ABDOMEN_AND PELVIS 11/05/2020 5:40 PM INDICATION: Right-sided pain after fall COMPARISON: CT chest 07/11/2019 TECHNIQUE: Multiple axial CT images of the chest, abdomen and pelvis were obtained after the intraven ous administration of 100 mL nonionic contrast. Coronal and sagittal reformats are provided. FINDINGS: Thyroid gland is normal in appearance. Precarinal lymph node with normal fatty hilum measures 10 mm r ight hilar lymph node measures 11 mm (series 4, image 54). Heart size within normal limits. There is no pericardial effusion. Thoracic aorta is normal in course and caliber with minor calcified plaque. There is adequate opacification of pulmonary arterial system. No filling defects within the pulmonary arteries to suggest pulmonary emboli. Minimal subpleural interstitial changes are identified within the lungs. No focal airspace consolidation. No pleural effusions or pneumothorax. There is minimal co rtical irregularity involving the anterior right fourth rib which may represent a nondisplaced fractu re. Liver, spleen, right adrenal gland, pancreas and kidneys are normal in appearance. No hydronephrosis or suspicious renal mass. Gallbladder surgically absent. There is a left adrenal nodule measuring 1.7 cm x 1.0 cm which is stable, indeterminate. Abdominal aorta is normal in caliber with mild calcified plaque. Small fat-containing left femoral hernia. Urinary bladder is within normal limits given degr ee of distention. Uterus and adnexa are normal by CT. Mild diverticulosis. No adjacent inflammation. Appendix is not definitively visualized. No pericecal inflammatory changes are identified. No suspici ous osseous abnormality involving the pelvis. IMPRESSION: 1. No evidence for acute or chronic pulmonary embolism. 2. Minimal subpleural interstitial changes throughout the lungs may be chronic and associated with ch ronic interstitial edema or early interstitial lung disease. 3. Undulation of the anterior right fourth rib could represent a not assess fracture. 4. Left adrenal nodule measures 1.7 x 1.0 cm, indeterminate and stable. Electronically signed by: Lena Stern MD (11/05/2020 6:44 PM) [facility]
== END 2020-11-05 19:03 | disposition home or self-care (01) ==
LOC: ER 16:26
DX: R07.81 Pleurodynia (principal); E27.9 Disorder of adrenal gland, unspecified; I10 Essential (primary) hypertension; F17.210 Nicotine dependence, cigarettes, uncomplicated; Z90.49 Acquired absence of other specified parts of digestive tract; Z88.0 Allergy status to penicillin; Z88.6 Allergy status to analgesic agent; Z88.8 Allergy status to other drugs, medicaments and biological substances
CPT/HCPCS: 36415; 71275; 74177; 80053; 83735; 83880; 84100; 84484; 85025; 85379; 93005; 96361; 96374; 99285; J1885; J7040

== ENCOUNTER 2020-12-31 07:44 | Emergency (ER) | payer OTHER, MEDICAID ==
[~2020-12-31] VITALS: Ht 167.6 cm; Wt 97.6 kg
--- NOTE | 2020-12-31 08:00 | PHYS DOC ---
Past History Past Medical History: Dementia, Hypertension, UTI Additional Past Medical Histor: cellulitis Past Surgical History: Cholecystectomy Smoking: Cigarettes Alcohol Use: None Drug Use: None General Adult EDM: Chief Complaint: LOWER EXT PAIN HPI: HPI: 75-year-old female past medical history of hypertension, diabetes, bipolar disorder and insomnia, presents to the ED brought by EMS with complaints of right heel pain and ankle swelling stating "I woke up with this." States she was outside yesterday walking barefoot when she started experiencing heel pain, noticed swelling this morning. Cannot recall any specific injury or rolling her right ankle. Does not recall any skin tears or bleeding -denies any known puncture wound. States her tetanus is UTD. Hasn't eaten anything today-made home made buns/bread yesterday. Review of Systems: Review of Systems: Constitutional: Denies fever or chills Eyes: Denies change in visual acuity HENT: Denies nasal congestion or sore throat Respiratory: Denies cough or shortness of breath Cardiovascular: Denies chest pain or edema GI: Denies nausea, vomiting, Musculoskeletal: Denies back pain or saddle anesthesia Integument: Denies blistering lesions or diaphoresis Neurologic: Denies headache, focal weakness or sensory changes Endocrine: Denies polyuria or polydipsia Lymphatic: Denies swollen glands Psychiatric: Denies depression or anxiety Allergies: Allergies: Allergies Coded Allergies Type Severity Reaction Last Updated Verified Penicillins Allergy Intermediate 06/10/20 Yes procaine Allergy Intermediate 06/10/20 Yes quetiapine Allergy Intermediate 06/10/20 Yes morphine Allergy Mild Unknown 06/10/20 Yes haloperidol Adverse Reaction Intermediate muscle spasms 06/10/20 Yes Physical Exam: PE: Constitutional: Well developed, well nourished, no acute distress, non-toxic appearance. HENT: Normocephalic, atraumatic, dry mucous membranes Eyes: EOMI, conjunctiva normal, no discharge. Neck: Normal range of motion, supple, Cardiovascular: S1/2 present, regular rhythm Lungs & Thorax: Speaking in full sentences, bilateral equal chest rise, no tachypnea or increased work of breathing Skin: Warm, dry, Back: No midline tenderness or step offs Extremities: DP/PT intact bl, dirty soles of feet (rn cleaned), mild ankle swelling with full range of motion, joint not warm or red, equal distal calf/lower extremity redness and increased warmth, ttp over plantar aspect of the middle of the calcaneus-no bruising or planta ecchymosis Neurologic: gcs 15, Alert and oriented X 3, normal motor function, normal sensory function, no focal deficits noted. [] Psychologic: Affect normal, judgement normal, mood normal. [] EKG: EKG: [] Radiology/Procedures: Radiology/Procedures: IMAGING REPORT Signed PATIENT: SANJAY KIMBALL ACCOUNT: [id number] : 1945 LOCATION: ER AGE: 75 SEX: F EXAM STATUS: REG ER ORD. PHYSICIAN: BRIELLE TORRES DO REASON: heel pain/redness PROCEDURE: FOOT RIGHT 3V Exam Date: 12/31/2020 7:55 AM XR EXAM OF ANKLE_RIGHT 3VIEWS, XR FOOT_RIGHT 3 VIEWS Indication: Reason: heel pain/redness / Spl. Instructions: / History: . COMPARISON: June 10, 2020 FINDINGS/ IMPRESSION: Ankle mortise is intact. There is soft tissue swelling around the ankle. Moderate calcaneal enthesopathy is present. Mild to moderate degenerative aguilar ges are noted. Alignment is maintained. No definite acute fracture or dislocation. Electronically signed by: Génesis Sanon MD (12/31/2020 8:18 AM) [facility] DICTATED AND SIGNED BY: GÉNESIS SANON MD DATE: 12/31/20811 CC: DAINA ROBERTS; BRIELLE TORRES DO ~MTH0 0 Heart Score: C/O Chest Pain: No Risk Factors: Risk Factors: DM, Current or recent (<one month) smoker, HTN, HLP, family history of CAD, obesity. Risk Scores: Score 0 - 3: 2.5% MACE over next 6 weeks - Discharge Home Score 4 - 6: 20.3% MACE over next 6 weeks - Admit for Clinical Observation Score 7 - 10: 72.7% MACE over next 6 weeks - Early Invasive Strategies Course & Med Decision Making: Course & Med Decision Making Pertinent Labs and Imaging studies reviewed. (See chart for details) Concern for atraumatic right ankle/heel pain with no acute fracture on x-ray, will treat for ankle sprain with splinting/bracing rice instructions. Patient also with lower extremity erythema, differential includes cellulitis versus stasis dermatitis. Will treat with antibiotics and probiotic for 10 days. Pt well appearing, no signs of head injury. Will discharge home with strict ED return precautions were given for worsening rash, fever, neurologic deficits or repeat injury. Encouraged urgent outpatient follow-up with PMD and orthopedic surgery. Life-threatening processes were considered but are low suspicion at this time, given history, physical exam and ED workup. Pt was educated on all prescription medications and adverse effects. All patient's questions were answered and pt was stable at time of discharge. Life/limb-threatening differential includes but is not limited to, trauma (fracture, dislocation, laceration, compartment syndrome, tendon or ligament injury), neurovascular injury or deficitcva/tia, infection (osteomyelitis, abscess, cellulitis, septic arthritis, necrotizing fasciitis), deep vein thrombosis, renal/cardiac/liver disease, medication adverse effect, lymphedema/anasarca, vascular insufficiency or malignancy, I have spoken with the patient and/or caregivers. I explained the patient's condition, diagnoses and treatment plan based on the information available to me at this time. I have answered the patient and/or caregiver's questions and addressed any concerns. The patient and/or caregivers have a good understanding of patient's diagnosis, condition and treatment plan as can be expected at this point. Vital signs have been stable. Patient's condition is stable and appropriate for discharge from the emergency department. Patient will pursue further outpatient evaluation with primary care physician or other designated or consulting physician as outlined in the discharge instructions. The patient and/or caregivers are agreeable to this plan of care and follow-up instructions have been explained in detail. The patient and/or caregivers have received these instructions in written form and have expressed an understanding of the discharge instructions. The patient and/or caregivers are aware that any significant change of condition or worsening of symptoms should prompt immediate return to this or the closest emergency department or call to 911. Hank Disclaimer: Hank Disclaimer: This electronic medical record was generated, in whole or in part, using a voice recognition dictation system. Departure Departure: Impression: Primary Impression: Right ankle sprain Additional Impression: Bilateral lower leg cellulitis Disposition: HOME / SELF CARE / HOMELESS Condition: STABLE Referrals: DAINA ROBERTS (PCP) in 1- 2 days Patient Instructions: Ankle Sprain, Cellulitis, RICE - Routine Care for Injuries, Stasis Dermatitis Additional Instructions: FOLLOW UP WITH ORTHOPEDICS: for persistent ankle pain [facility] [address] [place], [address] [place] [address] EMERGENCY DEPARTMENT GENERAL DISCHARGE INSTRUCTIONS Thank you for coming to [facility] (ED) today and trusting us with you care. We trust that you had a positivie experience in our Emergency Department. If you wish to speak to the department management, you may call the director at [phone]. YOUR FOLLOW UP INSTRUCTIONS ARE FOLLOWS: 1. Do you have a private Doctor? If you do not have a private doctor, please ask for a resource list of physicians or clinics that may be able to assist you with follow up care. 2. The Emergency Physician has interpreted your x-rays. The X-Ray specialist will also review them. If there is a change in the findings, you will be notified in 48 hours when at all possible. ADDITIONAL INSTRUCTIONS AND INFORMATION: 1. Your care today has been supervised by a physician who is specially trained in emergency care. Many problems require more than one evaluation for a complete diagnosis and treatment. We recommend that you schedule your follow up appointment as recommended to ensure complete treatment of you illness or injury. If you are unable to obtain follow up care and continue to have a problem, or if your condition worsens, we recommend that you return to the ED. 2. We are not able to safely determine your condition over the phone nor are we able to give sound medical advice over the phone. For these safety reasons, if you call for medical advice we will ask you to come to the ED for further evaluation. 3. If you have any questions regarding these discharge instructions please call the ED at [phone]. SAFETY INFORMATION: In the interest of safety, wellness, and injury prevention; we encourage you to wear your sealbelt, if you smoke; quite smoking, and we encourage family to use a protective helmet for bicycling and other sporting events that present an increased risk for head injury. IF YOUR SYMPTOMS WORSEN OR NEW SYMPTOMS DEVELOP, OR YOU HAVE CONCERNS ABOUT YOUR CONDITION; OR IF YOUR CONDITION WORSENS WHILE YOU ARE WAITING FOR YOUR FOLLOW UP APPOINTMENT; EITHER CONTACT YOUR PRIMARY CARE DOCTOR, THE PHYSICIAN WHOSE NAME AND NUMBER YOU WERE GIVEN, OR RETURN TO THE ED IMMEDIATELY. Scripts L.acidoph & Paracasei,B.lactis (Probiotic) 1 Each Capsule 1 EACH PO DAILY for while taking antibiotics for 14 Days, #14 CAP Prov: BRIELLE TORRES DO 12/31/20 Cephalexin (CEPHALEXIN) 500 Mg Capsule 1 CAP PO QID for rash for 10 Days, #40 CAP Prov: BRIELLE TORRES DO 12/31/20 BRIELLE TORRES DO Dec 31, 2020 08:00
--- NOTE | 2020-12-31 08:20 | RAD ---
Exam Date: 12/31/2020 7:55 AM XR EXAM OF ANKLE_RIGHT 3VIEWS, XR FOOT_RIGHT 3 VIEWS Indication: Reason: heel pain/redness / Spl. Instructions: / History: . COMPARISON: June 10, 2020 FINDINGS/ IMPRESSION: Ankle mortise is intact. There is soft tissue swelling around the ankle. Moderate calcaneal entheso regina is present. Mild to moderate degenerative changes are noted. Alignment is maintained. No def inite acute fracture or dislocation. Electronically signed by: Ted Sanon MD (12/31/2020 8:18 AM) [facility]
[2020-12-31] MEDS ORDERED: L.AC1CAP6 PO (08:28)
[2020-12-31] MEDS ORDERED: CEPH500C PO (08:28)
[2020-12-31 08:47] VITALS: BP 107/63
== END 2020-12-31 08:49 | disposition home or self-care (01) ==
LOC: ER 07:44
DX: S93.401A Sprain of unspecified ligament of right ankle, initial encounter (principal); L03.116 Cellulitis of left lower limb; L03.115 Cellulitis of right lower limb; X58.XXXA Exposure to other specified factors, initial encounter; Y93.89 Activity, other specified; Y92.89 Other specified places as the place of occurrence of the external cause; Y99.8 Other external cause status
CPT/HCPCS: 73610; 73630; 99284